=== PATIENT | male | born 2000 | race African-American/Black ===

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

== ENCOUNTER 2020-01-11 16:20 | Emergency (ER) | payer MEDICAID ==
--- NOTE | 2020-01-11 17:21 | EDM.PDOC ---
ED HPI GENERAL MEDICAL PROBLEM - General Chief Complaint: Laceration Stated Complaint: L EYE/HEAD INJURY Time Seen by Provider: 01/11/20 16:54 Source of Information: Reports: Patient, RN Notes Reviewed History Limitations: Reports: No Limitations - History of Present Illness INITIAL COMMENTS - FREE TEXT/NARRATIVE: Patient is a 19-year-old male who presents to the ED for the evaluation of a eyebrow laceration. At about 4:15 PM, he was helping his mother unload her vehicle, when he ended up hitting his head/left eyebrow on the open delgado of her vehicle. He does have a 5 mm fine laceration into the lateral left eyebrow. He did have a loss of consciousness he did not black out. There is a small hematoma underneath the eyebrow otherwise he is having no blurred vision double vision, no major headache, no other facial pain. He denies any other sick-like symptoms. Treatments RETAIL GIFT CARD MERCHANDISING: Reports: Other (see below) Other Treatments RETAIL GIFT CARD MERCHANDISING: none - Related Data Allergies Allergy/AdvReac Type Severity Reaction Status Date / Time No Known Allergies Allergy Verified 08/18/19 23:43 Home Meds: Home Meds metFORMIN HCl [Metformin HCl] 500 mg PO BID #30 tablet 07/04/19 [Rx] Insulin Glarg,Human.Rec.Analog [Lantus] 60 unit SUBCUT BEDTIME #1 pen 07/14/19 [Rx] Insulin Lispro [HumaLOG] 20 unit SUBCUT TIDAC #1 vial 07/14/19 [Rx] Past Medical History Respiratory History: Reports: Asthma Musculoskeletal History: Reports: Fracture Psychiatric History: Reports: ADHD Endocrine/Metabolic History: Reports: Diabetes, Type II, Obesity/BMI 30+ Other Endocrine/Metabolic History: hx DKA Dermatologic History: Reports: Eczema - Past Surgical History HEENT Surgical History: Reports: Oral Surgery Musculoskeletal Surgical History: Reports: ORIF Social & Family History - Family History Family Medical History: Noncontributory - Caffeine Use Caffeine Use: Reports: Coffee, Energy Drinks, Soda, Tea - Living Situation & Occupation Living situation: Reports: Single, with Family Occupation: Unemployed ED ROS GENERAL - Review of Systems Review Of Systems: Comprehensive ROS is negative, except as noted in HPI. ED EXAM, SKIN/RASH Exam: See Below Exam Limited By: No Limitations General Appearance: Alert, WD/WN, No Apparent Distress Eye Exam: Bilateral Eye: EOMI, Normal Inspection, PERRL Head: Normocephalic Neck: Normal Inspection, Supple, Non-Tender, Full Range of Motion Respiratory/Chest: No Respiratory Distress, Lungs Clear, Normal Breath Sounds, No Accessory Muscle Use, Chest Non-Tender Cardiovascular: Normal Peripheral Pulses, Regular Rate, Rhythm, No Murmur Extremities: Normal Inspection, Normal Capillary Refill Neurological: Alert, Oriented, Normal Cognition, No Motor/Sensory Deficits Psychiatric: Normal Affect, Normal Mood Skin: Warm, Dry, Normal Color, No Rash, Wound/Incision (5mm linear laceration to left lateral eyebrow) ED SKIN PROCEDURES - Laceration/Wound Repair Left Upper Lateral Face Appearance: Superficial, Linear, Clean Distal NVT: Neuro & Vascular Intact, No Tendon Injury Skin Prep: Chlorhexidine (Hibiciens), Saline Exploration/Debridement/Repair: Wound Explored, In a Bloodless Field, Explored to Base, No Foreign Material Found Closed with: Dermabond Lac/Wound length In cm: 0.5 Sterile Dressing Applied: Nurse Tetanus Status Addressed: Yes Complications: No Course - Vital Signs Last Recorded V/S: Last Vital Signs Temp 97.3 F 01/11/20 16:56 Pulse 88 01/11/20 16:56 Resp 20 01/11/20 16:56 BP 132/92 H 01/11/20 16:56 Pulse Ox 97 01/11/20 16:56 Departure - Departure Time of Disposition: 17:19 Disposition: Home, Self-Care 01 Condition: Good Clinical Impression: Eyebrow laceration Qualifiers: Encounter type: initial encounter Laterality: left Qualified Code(s): S01.112A - Laceration without foreign body of left eyelid and periocular area, initial encounter - Discharge Information *PRESCRIPTION DRUG MONITORING PROGRAM REVIEWED*: No *COPY OF PRESCRIPTION DRUG MONITORING REPORT IN PATIENT SHANTI: No Instructions: Facial Laceration, [id number] Referrals: PCP,None [Primary Care Provider] - Additional Instructions: You were evaluated in the ER today for your left eyebrow laceration. This was treated with Dermabond, a medical grade skin adhesive. This should heal well. The Dermabond itself will wear off within the next few days. Please watch out for signs of infection like redness, swelling, drainage at the site of injury. Please watch out for any worrisome symptoms, headache this not relieved by Tylenol ibuprofen alone, increased nausea/vomiting, blurred vision/double vis ion. You may take 500 mg Tylenol or 600 mg ibuprofen every 6 hours as needed for further pain relief. You may also ice the area to help relieve some of the swelling. Do not be surprised if you do not get a little bit of a black eye from the injury. Please return to the ER at any time if symptoms change or worsen. Sepsis Event Note (ED) - Evaluation Sepsis Screening Result: No Definite Risk - Focused Exam Vital Signs: Vital Signs Temp Pulse Resp BP Pulse Ox 01/11/20 16:56 97.3 F 88 20 132/92 H 97
== END 2020-01-11 17:55 | disposition home or self-care (01) ==
LOC: JD.ED 16:20
DX: S01.112A Laceration without foreign body of left eyelid and periocular area, initial encounter (principal); J45.909 Unspecified asthma, uncomplicated; E11.9 Type 2 diabetes mellitus without complications; E66.9 Obesity, unspecified; Z68.35 Body mass index [BMI] 35.0-35.9, adult; Z79.4 Long term (current) use of insulin; W22.8XXA Striking against or struck by other objects, initial encounter
CPT/HCPCS: 12011; 99282; 99282-25

== ENCOUNTER 2020-03-06 12:39 | Inpatient (IN) | payer MEDICAID ==
[2020-03-06] MEDS ORDERED: Insulin Regular, Human 100 Units/ML 3 ML Vial IV ONE (13:24)
[2020-03-06] MEDS ORDERED: Metoclopramide 10 MG/2 ML SDV IVPUSH ONE (13:29)
[2020-03-06] MEDS ORDERED: HYDROmorphone 1 MG/ML Syringe IVPUSH ONE (13:29)
--- NOTE | 2020-03-06 13:30 | EDM.PDOC ---
ED HPI GENERAL MEDICAL PROBLEM - General Chief Complaint: Diabetic Complaint Stated Complaint: POSS COVID Time Seen by Provider: 03/06/20 13:15 Source of Information: Reports: Patient History Limitations: Reports: No Limitations - History of Present Illness INITIAL COMMENTS - FREE TEXT/NARRATIVE: 20-year-old male presents to the ED feeling weak nauseated with upper abdominal pain and knows that his blood sugar was greater than 400. Patient was diagnosed with diabetes at age 14 and is still on Metformin 1 g twice daily. He reports he has been off insulin for about a month as he became homeless and could not afford insulin. He states he became ill the last 3 to 4 days with cough weakness headache. He still is able to eat although it is difficult to keep anything down. He denies any diarrhea. Blood sugar in the ED was greater than 400. He smells strongly of ketones. He denies being on any other medications. Onset: Gradual, Other (Been off insulin he states for the last month and is a known insulin dependent diabetic for 6 years) Onset Date: 02/04/20 Duration: Week(s):, Getting Worse Location: Reports: Abdomen (Normalized weakness upper abdominal pain with nausea no vomiting), Generalized Quality: Reports: Ache (Deep aching pain upper abdomen) Severity: Moderate Improves with: Reports: None Worsens with: Reports: Eating Context: Reports: Other (Insulin-dependent diabetic type I since age 14 reports not using any insulin for the last month.). Denies: Activity, Exercise, Lifting, Sick Contact, Trauma Associated Symptoms: Reports: Cough, cough w sputum, Headaches, Loss of Appetite (Sputum), Malaise, Nausea/Vomiting, Weakness. Denies: Confusion, Chest Pain, Diaphoresis, Fever/Chills, Rash, Seizure (Nausea without vomiting), Shortness of Breath, Syncope Treatments IMPLEMENTATION TECHNICIAN: Reports: Other (see below) (None.) Generalized Pain Score (Numeric/FACES): 3 - Related Data Allergies Allergy/AdvReac Type Severity Reaction Status Date / Time No Known Allergies Allergy Verified 03/06/20 12:54 Home Meds: Home Meds metFORMIN HCl [Metformin HCl] 500 mg PO BID #30 tablet 07/04/19 [Rx] Insulin Glarg,Human.Rec.Analog [Lantus] 60 unit SUBCUT BEDTIME #1 pen 07/14/19 [Rx] Insulin Lispro [HumaLOG] 20 unit SUBCUT TIDAC #1 vial 07/14/19 [Rx] Past Medical History Respiratory History: Reports: Asthma Musculoskeletal History: Reports: Fracture Psychiatric History: Reports: ADHD Endocrine/Metabolic History: Reports: Diabetes, Type I (Diagnosed with type 1 diabetes at age 14. Previous history of DKA), Obesity/BMI 30+ Other Endocrine/Metabolic History: hx DKA Dermatologic History: Reports: Eczema - Past Surgical History HEENT Surgical History: Reports: Oral Surgery Respiratory Surgical History: Reports: None Endocrine Surgical History: Reports: None Musculoskeletal Surgical History: Reports: ORIF Other Musculoskeletal Surgeries/Procedures:: right elbow Social & Family History - Family History Family Medical History: No Pertinent Family History - Tobacco Use Tobacco Use Status *Q: Never Tobacco User Second Hand Smoke Exposure: No - Caffeine Use Caffeine Use: Reports: Coffee, Energy Drinks, Soda - Recreational Drug Use Recreational Drug Use: No - Living Situation & Occupation Living situation: Reports: Single, with Family Occupation: Unemployed ED ROS GENERAL - Review of Systems Review Of Systems: See Below Constitutional: Reports: Malaise, Weakness, Fatigue, Decreased Appetite, Weight Loss. Denies: Fever, Chills HEENT: Reports: Other ([place] blurred vision. Does not wear glasses or contact lenses.) Respiratory: Reports: Cough, Sputum (White sputum.). Denies: Wheezing, Pleuritic Chest Pain Cardiovascular: Reports: Blood Pressure Problem. Denies: Chest Pain, Claudication, Dyspnea on Exertion, Edema, Lightheadedness, Orthopnea (Not for sure.) Endocrine: Reports: Fatigue GI/Abdominal: Reports: Abdominal Pain, Decreased Appetite, Nausea. Denies: Constipation (Upper abdominal pain along the costal margin bilaterally and epigastrium through to his mid back), Diarrhea, Hematemesis, Hematochezia, Melena, Stool Incontinence, Vomiting : Reports: Frequency, Other Musculoskeletal: Reports: No Symptoms Skin: Reports: Dryness Neurological: Reports: Dizziness, Headache, Weakness. Denies: Confusion, Numbness, Paresthesia, Pre-Existing Deficit, Seizure, Syncope, Tingling, Tremors, Trouble Speaking Psychiatric: Reports: No Symptoms Hematologic/Lymphatic: Reports: No Symptoms Immunologic: Reports: No Symptoms ED EXAM GENERAL NO PERIP PULSE - Physical Exam Exam: See Below Exam Limited By: No Limitations General Appearance: Alert, WD/WN, Mild Distress, Other (Patient smells strongly of ketones. Temperature is 36.3 heart rate 126 at the bedside respiratory is 24 with O2 sats of 95% room air BP 149/98.) Eye Exam: Bilateral Eye: Normal Inspection, PERRL (No blepharal pallor or scleral icterus identified) Ears: Normal TMs Throat/Mouth: Other (Tongue is moderately dry and coated.) Head: Atraumatic, Normocephalic Neck: Normal Inspection, Supple, Non-Tender, Full Range of Motion. No: Lymphadenopathy (L), Lymphadenopathy (R) Respiratory/Chest: Lungs Clear, Normal Breath Sounds, Respiratory Distress (Tachypnea at the bedside.). No: Crackles, Rales, Rhonchi, Wheezing Cardiovascular: Normal Peripheral Pulses, No Edema, No Gallop, No Murmur, No Rub, Tachycardia GI/Abdominal: Soft (Sounds are present but are infrequent in all 4 quadrants.), No Organomegaly, No Mass, Pelvis Stable, Tender, Abnormal Bowel Sounds. No: Guarding, Rigid, Rebound, Hepatomegaly, Splenomegaly (Tenderness in the epigastrium.) Back Exam: Normal Inspection, Full Range of Motion. No: CVA Tenderness (L), CVA Tenderness (R) Extremities: Normal Inspection, Normal Range of Motion, Non-Tender, No Pedal Edema Neurological: Alert, Oriented, CN II-XII Intact, Normal Cognition Psychiatric: Normal Affect, Normal Mood Skin Exam: Warm, Dry, Intact, Normal Color, No Rash #1 Interpretation EKG Date: 03/06/20 Time: 14:21 Rhythm: Other Rate (Beats/Min): 106 [place]: Normal P-Wave: Present QRS: Other (RSR prime wave V1 consider normal variant. Initial poor R wave progression.) ST-T: Other (Diffuse ST segment depression and T wave inversion from V3 to V6 also appreciated in leads II, III and aVF consider anterior inferior wall ischemia. Nonspecific T wave flattening in leads I and aVL) QT: Prolonged EKG Interpretation Comments: Abnormal ECG Course - Vital Signs Last Recorded V/S: Last Vital Signs Temp 36.3 C 03/06/20 12:52 Pulse 126 H 03/06/20 12:52 Resp 20 03/06/20 12:52 BP 149/98 H 03/06/20 12:52 Pulse Ox 95 03/06/20 12:52 - Orders/Labs/Meds Orders: Active Orders 24 hr Category Date Time Status Patient Status [ADT] Routine ADT 03/06/20 17:55 Active Accu Check [Blood Glucose Check, Bedside] [] Q1H Care 03/06/20 18:07 Active EKG Documentation Completion [RC] STAT Care 03/06/20 13:19 Active Flutter Valve Therapy [RT Chest Physiotherapy] [RC] Care 03/06/20 18:03 Active ASDIRECTED Height and Weight [RC] UPON Care 03/06/20 17:55 Active Incentive Spirometry [RT Incentive Spirometry] [RC] Care 03/06/20 18:03 Active Q2HWA Intake and Output [] QSHIFT Care 03/06/20 17:56 Active Oxygen Therapy [RC] PRN Care 03/06/20 17:55 Active RT Aerosol Therapy [] ASDIRECTED Care 03/06/20 17:57 Active Up ad Brittney [RC] ASDIRECTED Care 03/06/20 17:55 Active VTE/DVT Education [RC] PER UNIT ROUTINE Care 03/06/20 17:55 Active Vital Signs [RC] Q4H Care 03/06/20 17:55 Active Consult to Diabetic Nurse Specialist [CONS] Routine Cons 03/06/20 17:55 Active Consult to Etiologist [CONS] Routine Cons 03/06/20 17:55 Active Respiratory Care Assess and Treatment [CONS] Routine Cons 03/06/20 17:55 Active Nothing per Oral Now Diet [DIET] Diet 03/06/20 Dinner Active Chest 1V Frontal [CR] AM Exams 03/07/20 05:11 Ordered BASIC METABOLIC PANEL,BMP [CHEM] Q4H Lab 03/06/20 21:55 Ordered BASIC METABOLIC PANEL,BMP [CHEM] Q4H Lab 03/07/20 01:55 Ordered BASIC METABOLIC PANEL,BMP [CHEM] Q4H Lab 03/07/20 05:55 Ordered BASIC METABOLIC PANEL,BMP [CHEM] Q4H Lab 03/07/20 09:55 Ordered BASIC METABOLIC PANEL,BMP [CHEM] Q4H Lab 03/07/20 13:55 Ordered BASIC METABOLIC PANEL,BMP [CHEM] Q4H Lab 03/07/20 17:55 Ordered BASIC METABOLIC PANEL,BMP [CHEM] Q4H Lab 03/07/20 21:55 Ordered BASIC METABOLIC PANEL,BMP [CHEM] Q4H Lab 03/08/20 01:55 Ordered C-REACTIVE PROTEIN [CHEM] AM Lab 03/07/20 05:11 Ordered C-REACTIVE PROTEIN [CHEM] AM Lab 03/08/20 05:11 Ordered C-REACTIVE PROTEIN [CHEM] AM Lab 03/09/20 05:11 Ordered CULTURE BLOOD [BC] Stat Lab 03/06/20 13:45 Received CULTURE BLOOD [BC] Stat Lab 03/06/20 13:50 Received CULTURE SPUTUM + SMEAR [RM] Stat Lab 03/06/20 17:55 Ordered MAGNESIUM [CHEM] AM Lab 03/07/20 05:11 Ordered MAGNESIUM [CHEM] AM Lab 03/08/20 05:11 Ordered MAGNESIUM [CHEM] AM Lab 03/09/20 05:11 Ordered MAGNESIUM [CHEM] AM Lab 03/10/20 05:11 Ordered MAGNESIUM [CHEM] AM Lab 03/11/20 05:11 Ordered MAGNESIUM [CHEM] AM Lab 03/12/20 05:11 Ordered MAGNESIUM [CHEM] AM Lab 03/13/20 05:11 Ordered PHOSPHORUS [CHEM] AM Lab 03/07/20 05:11 Ordered PHOSPHORUS [CHEM] AM Lab 03/08/20 05:11 Ordered PHOSPHORUS [CHEM] AM Lab 03/09/20 05:11 Ordered PHOSPHORUS [CHEM] AM Lab 03/10/20 05:11 Ordered PHOSPHORUS [CHEM] AM Lab 03/11/20 05:11 Ordered PHOSPHORUS [CHEM] AM Lab 03/12/20 05:11 Ordered PHOSPHORUS [CHEM] AM Lab 03/13/20 05:11 Ordered Acetaminophen/HYDROcodone [[place] 325-5 MG] Med 03/06/20 17:55 Active 1 tab PO Q4H PRN Albuterol/Ipratropium [DuoNeb 3.0-0.5 MG/3 ML] Med 03/06/20 17:55 Active 3 ml NEB Q4H PRN Azithromycin [Zithromax] 500 mg Med 03/06/20 19:00 Active Sodium Chloride 0.9% [Normal Saline (AdvBag)] 250 ml IV Q24H Dextromethorphan/guaiFENesin [Robitussin DM] Med 03/06/20 18:03 Active 10 ml PO Q4H PRN HYDROmorphone [Dilaudid] Med 03/06/20 17:55 Active 0.5 mg IVPUSH Q2H PRN Heparin Sodium Med 03/06/20 18:00 Active 5,000 units SUBCUT Q8H Insulin Glarg,Human.Rec.Analog [LantUS] Med 03/07/20 18:02 Pending 25 unit SUBCUT DAILY ONE Insulin Regular, Human [HumuLIN R] 100 unit Med 03/06/20 18:15 Active Sodium Chloride 0.9% [Normal Saline] 99 ml IV TITRATE Lactated Ringers [Ringers, Lactated] 1,000 ml Med 03/06/20 13:30 Active IV ASDIRECTED Lactated Ringers [Ringers, Lactated] 1,000 ml Med 03/06/20 15:15 Active IV ASDIRECTED Ondansetron [Zofran] Med 03/06/20 17:55 Active 4 mg IV Q6H PRN Potassium Chloride [KCl 10 MEQ in Water 100 ML] 10 meq Med 03/06/20 19:00 Active Premix Bag 1 bag IV Q1H Promethazine [Phenergan] 6.25 mg Med 03/06/20 17:55 Active Sodium Chloride 0.9% [Normal Saline] 50 ml IV Q6H cefTRIAXone [Rocephin] 1 gm Med 03/06/20 18:30 Active Sodium Chloride 0.9% [Normal Saline] 100 ml IV Q24H dexAMETHasone Med 03/07/20 09:00 Active 6 mg PO DAILY Blood Culture x2 Reflex Set [OM.PC] Stat Oth 03/06/20 13:20 Ordered Blood Culture x2 Reflex Set [OM.PC] Stat Oth 03/06/20 13:22 Ordered Resuscitation Status Routine Resus Stat 03/06/20 17:55 Ordered Medication Orders Hydrocodone Bitart/Acetaminophen ([place] 325-5 Mg) 1 tab PO Q4H PRN PRN Reason: Pain (moderate 4-6) Albuterol/Ipratropium (Duoneb 3.0-0.5 Mg/3 Ml) 3 ml NEB Q4H PRN PRN Reason: Shortness Of Breath/wheezing Dexamethasone (Dexamethasone) 6 mg PO DAILY [facility] Guaifenesin/Phenylephrine HCl (Robitussin Dm) 10 ml PO Q4H PRN PRN Reason: Cough Heparin Sodium (Porcine) (Heparin Sodium) 5,000 units SUBCUT Q8H [facility] Last Admin: 03/06/20 18:15 Dose: 5,000 units Documented by: ION Hydromorphone HCl (Dilaudid) 0.5 mg IVPUSH Q2H PRN PRN Reason: Pain (severe 7-10) Lactated Ringer's (Ringers, Lactated) 1,000 mls @ 999 mls/hr IV ASDIRECTED [facility] Last Admin: 03/06/20 15:48 Dose: 999 mls/hr Documented by: Infusion: 03/06/20 14:56 Dose: 999 mls/hr Documented by: Admin: 03/06/20 13:55 Dose: 999 mls/hr Documented by: ION Lactated Ringer's (Ringers, Lactated) 1,000 mls @ 999 mls/hr IV ASDIRECTED [facility] Last Admin: 03/06/20 16:57 Dose: 999 mls/hr Documented by: ION Potassium Chloride 10 meq/ (Premix) 100 mls @ 100 mls/hr IV Q1H [facility]IGUEL ANGEL Stop: 03/06/20 21:59 Promethazine HCl 6.25 mg/ (Sodium Chloride) 50.25 mls @ 100 mls/hr IV Q6H PRN PRN Reason: Nausea/Vomiting Insulin Human Regular 100 unit (/ Sodium Chloride) 100 mls @ 707.604 mls/hr IV TITRATE [facility]; Protocol Ceftriaxone Sodium 1 gm/ (Sodium Chloride) 100 mls @ 200 mls/hr IV Q24H [facility] Stop: 03/11/20 18:31 Azithromycin 500 mg/ Sodium (Chloride) 250 mls @ 250 mls/hr IV Q24H [facility] Insulin Glargine (Lantus) 25 unit SUBCUT DAILY ONE Stop: 03/07/20 18:03 Ondansetron HCl (Zofran) 4 mg IV Q6H PRN PRN Reason: Nausea/Vomiting Labs: Laboratory Tests 03/06/20 03/06/20 03/06/20 Range/Units 13:20 13:20 13:28 WBC (4.23-9.07) K/mm3 RBC (4.63-6.08) M/mm3 Hgb (13.7-17.5) gm/dl Hct (40.1-51.0) % MCV (79.0-92.2) fl MCH (25.7-32.2) pg MCHC (32.2-35.5) g/dl RDW Std Deviation (35.1-43.9) fL Plt Count (163-337) K/mm3 MPV (9.4-12.3) fl Neut % (Auto) (34.0-67.9) % Lymph % (Auto) (21.8-53.1) % [place] % (Auto) (5.3-12.2) % Eos % (Auto) (0.8-7.0) Baso % (Auto) (0.1-1.2) % Neut # (Auto) (1.78-5.38) K/mm3 Lymph # (Auto) (1.32-3.57) K/mm3 [place] # (Auto) (0.30-0.82) K/mm3 Eos # (Auto) (0.04-0.54) K/mm3 Baso # (Auto) (0.01-0.08) K/mm3 Manual Slide Review PT (9.7-12.0) SECONDS INR APTT (21.7-31.4) SECONDS Puncture Site ABG pH (7.35-7.45) ABG pCO2 (35.0-45.0) mmHg ABG pO2 (80.0-100.0) mmHg ABG HCO3 (22.0-26.0) meq/L ABG O2 Saturation (96.0-97.0) % ABG Base Excess (-2-2.0) Brandon Test A-a Gradient mmHg O2 Delivery Device Oxygen Flow Rate FiO2 (21.00-100.00) % Sodium 132 L (136-145) mEq/L Potassium 3.3 L (3.5-5.1) mEq/L Chloride 94 L (98-107) mEq/L Carbon Dioxide 9 L D (21-32) mEq/L Anion Gap 32.3 H (5-15) BUN 8 (7-18) mg/dL Creatinine 1.6 H (0.7-1.3) mg/dL Est Cr Clr Drug Dosing 92.81 mL/min Estimated GFR (MDRD) > 60 (>60) mL/min BUN/Creatinine Ratio 5.0 L (14-18) Glucose 526 H* (74-106) mg/dL POC Glucose (70-105) mg/dL Hemoglobin A1c 11.40 H (4.50-6.20) % Serum Osmolality (280-300) mosm/kg Calcium 9.6 (8.5-10.1) mg/dL Phosphorus (2.6-4.7) mg/dL Magnesium (1.8-2.4) mg/dl Iron (65-175) ug/dL TIBC (100-400) ug/dL % Saturation (20-55) % Transferrin (202-364) mg/dL Ferritin (26-388) ng/ml Total Bilirubin 0.6 (0.2-1.0) mg/dL AST 35 (15-37) U/L ALT 50 (16-63) U/L Alkaline Phosphatase 102 (46-116) U/L Lactate Dehydrogenase (85-227) U/L Troponin I < 0.017 (0.00-0.056) ng/mL C-Reactive Protein (<1.0) mg/dL NT-Pro-B Natriuret Pep (0-125) pg/mL Total Protein 8.8 H (6.4-8.2) g/dl Albumin 3.1 L (3.4-5.0) g/dl Globulin 5.7 gm/dL Albumin/Globulin Ratio 0.5 L (1-2) Lipase 50 L (73-393) U/L Urine Opiates Screen (YRLQAW=667) Ur Buprenorphine Scrn (CUTOFF=10) Ur Oxycodone Screen (GGY3BV=935) Urine Methadone Screen (TAQ6WS=367) Ur Propoxyphene Screen (WYJUQX=848) Ur Barbiturates Screen (VMZAQW=457) Ur Tricyclics Screen (QJLWHN=916) Ur Phencyclidine Scrn (CUTOFF=25) Ur Amphetamine Screen (BKKZTT=603) U Methamphetamines Scrn (EUUOPP=805) U Benzodiazepines Scrn (NXQMSD=963) U Cocaine Metab Screen (YAAVWQ=603) U Marijuana (THC) Screen (CUTOFF=50) Ethyl Alcohol 0.00 (0.00) gm% Ketones (0.0-0.3) mM SARS-CoV-2 RNA (KATARINA) (NEGATIVE) 03/06/20 03/06/20 03/06/20 Range/Units 13:28 13:28 13:28 WBC 9.89 H (4.23-9.07) K/mm3 RBC 5.86 (4.63-6.08) M/mm3 Hgb 15.2 (13.7-17.5) gm/dl Hct 46.1 (40.1-51.0) % MCV 78.7 L (79.0-92.2) fl MCH 25.9 (25.7-32.2) pg MCHC 33.0 (32.2-35.5) g/dl RDW Std Deviation 40.6 (35.1-43.9) fL Plt Count 263 (163-337) K/mm3 MPV 11.5 (9.4-12.3) fl Neut % (Auto) 78.7 H (34.0-67.9) % Lymph % (Auto) 12.2 L (21.8-53.1) % [place] % (Auto) 8.7 (5.3-12.2) % Eos % (Auto) 0 L (0.8-7.0) Baso % (Auto) 0.2 (0.1-1.2) % Neut # (Auto) 7.78 H (1.78-5.38) K/mm3 Lymph # (Auto) 1.21 L (1.32-3.57) K/mm3 [place] # (Auto) 0.86 H (0.30-0.82) K/mm3 Eos # (Auto) 0.00 L (0.04-0.54) K/mm3 Baso # (Auto) 0.02 (0.01-0.08) K/mm3 Manual Slide Review Normal smear PT 11.4 (9.7-12.0) SECONDS INR 1.07 APTT 30.0 (21.7-31.4) SECONDS Puncture Site ABG pH (7.35-7.45) ABG pCO2 (35.0-45.0) mmHg ABG pO2 (80.0-100.0) mmHg ABG HCO3 (22.0-26.0) meq/L ABG O2 Saturation (96.0-97.0) % ABG Base Excess (-2-2.0) Brandon Test A-a Gradient mmHg O2 Delivery Device Oxygen Flow Rate FiO2 (21.00-100.00) % Sodium (136-145) mEq/L Potassium (3.5-5.1) mEq/L Chloride (98-107) mEq/L Carbon Dioxide (21-32) mEq/L Anion Gap (5-15) BUN (7-18) mg/dL Creatinine (0.7-1.3) mg/dL Est Cr Clr Drug Dosing mL/min Estimated GFR (MDRD) (>60) mL/min BUN/Creatinine Ratio (14-18) Glucose (74-106) mg/dL POC Glucose (70-105) mg/dL Hemoglobin A1c (4.50-6.20) % Serum Osmolality (280-300) mosm/kg Calcium (8.5-10.1) mg/dL Phosphorus (2.6-4.7) mg/dL Magnesium (1.8-2.4) mg/dl Iron (65-175) ug/dL TIBC (100-400) ug/dL % Saturation (20-55) % Transferrin (202-364) mg/dL Ferritin (26-388) ng/ml Total Bilirubin (0.2-1.0) mg/dL AST (15-37) U/L ALT (16-63) U/L Alkaline Phosphatase (46-116) U/L Lactate Dehydrogenase (85-227) U/L Troponin I (0.00-0.056) ng/mL C-Reactive Protein (<1.0) mg/dL NT-Pro-B Natriuret Pep (0-125) pg/mL Total Protein (6.4-8.2) g/dl Albumin (3.4-5.0) g/dl Globulin gm/dL Albumin/Globulin Ratio (1-2) Lipase (73-393) U/L Urine Opiates Screen (WHMTUZ=346) Ur Buprenorphine Scrn (CUTOFF=10) Ur Oxycodone Screen (HGC5IX=084) Urine Methadone Screen (MNH8RB=019) Ur Propoxyphene Screen (TUEVJB=379) Ur Barbiturates Screen (RGQOAV=875) Ur Tricyclics Screen (AXZCBQ=992) Ur Phencyclidine Scrn (CUTOFF=25) Ur Amphetamine Screen (RUPTOT=535) U Methamphetamines Scrn (QOVWIB=210) U Benzodiazepines Scrn (XUQZLL=851) U Cocaine Metab Screen (VBHGCA=944) U Marijuana (THC) Screen (CUTOFF=50) Ethyl Alcohol (0.00) gm% Ketones 8.93 (0.0-0.3) mM SARS-CoV-2 RNA (KATARINA) (NEGATIVE) 03/06/20 03/06/20 03/06/20 Range/Units 13:28 13:28 13:28 WBC (4.23-9.07) K/mm3 RBC (4.63-6.08) M/mm3 Hgb (13.7-17.5) gm/dl Hct (40.1-51.0) % MCV (79.0-92.2) fl MCH (25.7-32.2) pg MCHC (32.2-35.5) g/dl RDW Std Deviation (35.1-43.9) fL Plt Count (163-337) K/mm3 MPV (9.4-12.3) fl Neut % (Auto) (34.0-67.9) % Lymph % (Auto) (21.8-53.1) % [place] % (Auto) (5.3-12.2) % Eos % (Auto) (0.8-7.0) Baso % (Auto) (0.1-1.2) % Neut # (Auto) (1.78-5.38) K/mm3 Lymph # (Auto) (1.32-3.57) K/mm3 [place] # (Auto) (0.30-0.82) K/mm3 Eos # (Auto) (0.04-0.54) K/mm3 Baso # (Auto) (0.01-0.08) K/mm3 Manual Slide Review PT (9.7-12.0) SECONDS INR APTT (21.7-31.4) SECONDS Puncture Site ABG pH (7.35-7.45) ABG pCO2 (35.0-45.0) mmHg ABG pO2 (80.0-100.0) mmHg ABG HCO3 (22.0-26.0) meq/L ABG O2 Saturation (96.0-97.0) % ABG Base Excess (-2-2.0) Brandon Test A-a Gradient mmHg O2 Delivery Device Oxygen Flow Rate FiO2 (21.00-100.00) % Sodium (136-145) mEq/L Potassium (3.5-5.1) mEq/L Chloride (98-107) mEq/L Carbon Dioxide (21-32) mEq/L Anion Gap (5-15) BUN (7-18) mg/dL Creatinine (0.7-1.3) mg/dL Est Cr Clr Drug Dosing mL/min Estimated GFR (MDRD) (>60) mL/min BUN/Creatinine Ratio (14-18) Glucose (74-106) mg/dL POC Glucose (70-105) mg/dL Hemoglobin A1c (4.50-6.20) % Serum Osmolality 331 H (280-300) mosm/kg Calcium (8.5-10.1) mg/dL Phosphorus 3.4 (2.6-4.7) mg/dL Magnesium 1.9 (1.8-2.4) mg/dl Iron 27 L (65-175) ug/dL TIBC 310 (100-400) ug/dL % Saturation 9 L (20-55) % Transferrin 248 (202-364) mg/dL Ferritin (26-388) ng/ml Total Bilirubin (0.2-1.0) mg/dL AST (15-37) U/L ALT (16-63) U/L Alkaline Phosphatase (46-116) U/L Lactate Dehydrogenase (85-227) U/L Troponin I (0.00-0.056) ng/mL C-Reactive Protein 32.4 H* (<1.0) mg/dL NT-Pro-B Natriuret Pep 23 (0-125) pg/mL Total Protein (6.4-8.2) g/dl Albumin (3.4-5.0) g/dl Globulin gm/dL Albumin/Globulin Ratio (1-2) Lipase (73-393) U/L Urine Opiates Screen (DZFGMK=822) Ur Buprenorphine Scrn (CUTOFF=10) Ur Oxycodone Screen (MCK0YW=140) Urine Methadone Screen (HNF7VA=199) Ur Propoxyphene Screen (JYAALT=314) Ur Barbiturates Screen (SYCORE=484) Ur Tricyclics Screen (IREUQF=902) Ur Phencyclidine Scrn (CUTOFF=25) Ur Amphetamine Screen (IIFUXV=624) U Methamphetamines Scrn (HWDVVB=394) U Benzodiazepines Scrn (ZZIKAW=559) U Cocaine Metab Screen (FGUFFI=985) U Marijuana (THC) Screen (CUTOFF=50) Ethyl Alcohol (0.00) gm% Ketones (0.0-0.3) mM SARS-CoV-2 RNA (KATARINA) (NEGATIVE) 03/06/20 03/06/20 03/06/20 Range/Units 14:13 14:35 14:38 WBC (4.23-9.07) K/mm3 RBC (4.63-6.08) M/mm3 Hgb (13.7-17.5) gm/dl Hct (40.1-51.0) % MCV (79.0-92.2) fl MCH (25.7-32.2) pg MCHC (32.2-35.5) g/dl RDW Std Deviation (35.1-43.9) fL Plt Count (163-337) K/mm3 MPV (9.4-12.3) fl Neut % (Auto) (34.0-67.9) % Lymph % (Auto) (21.8-53.1) % [place] % (Auto) (5.3-12.2) % Eos % (Auto) (0.8-7.0) Baso % (Auto) (0.1-1.2) % Neut # (Auto) (1.78-5.38) K/mm3 Lymph # (Auto) (1.32-3.57) K/mm3 [place] # (Auto) (0.30-0.82) K/mm3 Eos # (Auto) (0.04-0.54) K/mm3 Baso # (Auto) (0.01-0.08) K/mm3 Manual Slide Review PT (9.7-12.0) SECONDS INR APTT (21.7-31.4) SECONDS Puncture Site Rt radial ABG pH 7.20 L (7.35-7.45) ABG pCO2 19.4 L* (35.0-45.0) mmHg ABG pO2 91.0 (80.0-100.0) mmHg ABG HCO3 7.3 L (22.0-26.0) meq/L ABG O2 Saturation 95.5 L (96.0-97.0) % ABG Base Excess -19.5 L (-2-2.0) Brandon Test Positive A-a Gradient 35 mmHg O2 Delivery Device Room air Oxygen Flow Rate 0.0 FiO2 21.00 (21.00-100.00) % Sodium (136-145) mEq/L Potassium (3.5-5.1) mEq/L Chloride (98-107) mEq/L Carbon Dioxide (21-32) mEq/L Anion Gap (5-15) BUN (7-18) mg/dL Creatinine (0.7-1.3) mg/dL Est Cr Clr Drug Dosing mL/min Estimated GFR (MDRD) (>60) mL/min BUN/Creatinine Ratio (14-18) Glucose 466 H (74-106) mg/dL POC Glucose (70-105) mg/dL Hemoglobin A1c (4.50-6.20) % Serum Osmolality (280-300) mosm/kg Calcium (8.5-10.1) mg/dL Phosphorus (2.6-4.7) mg/dL Magnesium (1.8-2.4) mg/dl Iron (65-175) ug/dL TIBC (100-400) ug/dL % Saturation (20-55) % Transferrin (202-364) mg/dL Ferritin (26-388) ng/ml Total Bilirubin (0.2-1.0) mg/dL AST (15-37) U/L ALT (16-63) U/L Alkaline Phosphatase (46-116) U/L Lactate Dehydrogenase (85-227) U/L Troponin I (0.00-0.056) ng/mL C-Reactive Protein (<1.0) mg/dL NT-Pro-B Natriuret Pep (0-125) pg/mL Total Protein (6.4-8.2) g/dl Albumin (3.4-5.0) g/dl Globulin gm/dL Albumin/Globulin Ratio (1-2) Lipase (73-393) U/L Urine Opiates Screen (NQMJHQ=367) Ur Buprenorphine Scrn (CUTOFF=10) Ur Oxycodone Screen (VBO0IE=898) Urine Methadone Screen (UYW0FL=205) Ur Propoxyphene Screen (OFDQDE=136) Ur Barbiturates Screen (SQHNRD=150) Ur Tricyclics Screen (YWUERR=584) Ur Phencyclidine Scrn (CUTOFF=25) Ur Amphetamine Screen (ENVPBV=704) U Methamphetamines Scrn (WBFWXU=033) U Benzodiazepines Scrn (AEFTPE=698) U Cocaine Metab Screen (AUTOVM=917) U Marijuana (THC) Screen (CUTOFF=50) Ethyl Alcohol (0.00) gm% Ketones (0.0-0.3) mM SARS-CoV-2 RNA (KATARINA) Positive H (NEGATIVE) 03/06/20 03/06/20 03/06/20 Range/Units 15:40 15:40 15:40 WBC (4.23-9.07) K/mm3 RBC (4.63-6.08) M/mm3 Hgb (13.7-17.5) gm/dl Hct (40.1-51.0) % MCV (79.0-92.2) fl MCH (25.7-32.2) pg MCHC (32.2-35.5) g/dl RDW Std Deviation (35.1-43.9) fL Plt Count (163-337) K/mm3 MPV (9.4-12.3) fl Neut % (Auto) (34.0-67.9) % Lymph % (Auto) (21.8-53.1) % Dade % (Auto) (5.3-12.2) % Eos % (Auto) (0.8-7.0) Baso % (Auto) (0.1-1.2) % Neut # (Auto) (1.78-5.38) K/mm3 Lymph # (Auto) (1.32-3.57) K/mm3 Dade # (Auto) (0.30-0.82) K/mm3 Eos # (Auto) (0.04-0.54) K/mm3 Baso # (Auto) (0.01-0.08) K/mm3 Manual Slide Review PT (9.7-12.0) SECONDS INR APTT (21.7-31.4) SECONDS Puncture Site ABG pH (7.35-7.45) ABG pCO2 (35.0-45.0) mmHg ABG pO2 (80.0-100.0) mmHg ABG HCO3 (22.0-26.0) meq/L ABG O2 Saturation (96.0-97.0) % ABG Base Excess (-2-2.0) Brandon Test A-a Gradient mmHg O2 Delivery Device Oxygen Flow Rate FiO2 (21.00-100.00) % Sodium (136-145) mEq/L Potassium (3.5-5.1) mEq/L Chloride (98-107) mEq/L Carbon Dioxide (21-32) mEq/L Anion Gap (5-15) BUN (7-18) mg/dL Creatinine (0.7-1.3) mg/dL Est Cr Clr Drug Dosing mL/min Estimated GFR (MDRD) (>60) mL/min BUN/Creatinine Ratio (14-18) Glucose 417 H (74-106) mg/dL POC Glucose (70-105) mg/dL Hemoglobin A1c (4.50-6.20) % Serum Osmolality (280-300) mosm/kg Calcium (8.5-10.1) mg/dL Phosphorus (2.6-4.7) mg/dL Magnesium (1.8-2.4) mg/dl Iron (65-175) ug/dL TIBC (100-400) ug/dL % Saturation (20-55) % Transferrin (202-364) mg/dL Ferritin 841 H (26-388) ng/ml Total Bilirubin (0.2-1.0) mg/dL AST (15-37) U/L ALT (16-63) U/L Alkaline Phosphatase (46-116) U/L Lactate Dehydrogenase 342 H (85-227) U/L Troponin I (0.00-0.056) ng/mL C-Reactive Protein (<1.0) mg/dL NT-Pro-B Natriuret Pep (0-125) pg/mL Total Protein (6.4-8.2) g/dl Albumin (3.4-5.0) g/dl Globulin gm/dL Albumin/Globulin Ratio (1-2) Lipase (73-393) U/L Urine Opiates Screen (RZXICR=283) Ur Buprenorphine Scrn (CUTOFF=10) Ur Oxycodone Screen (TTC5LT=144) Urine Methadone Screen (QLV4BV=375) Ur Propoxyphene Screen (KQMBYH=878) Ur Barbiturates Screen (QNVCFC=161) Ur Tricyclics Screen (OKPXLO=105) Ur Phencyclidine Scrn (CUTOFF=25) Ur Amphetamine Screen (OHZIDV=092) U Methamphetamines Scrn (JZSJFI=919) U Benzodiazepines Scrn (VWJIMB=512) U Cocaine Metab Screen (VNGGZJ=180) U Marijuana (THC) Screen (CUTOFF=50) Ethyl Alcohol (0.00) gm% Ketones (0.0-0.3) mM SARS-CoV-2 RNA (KATARINA) (NEGATIVE) 03/06/20 03/06/20 03/06/20 Range/Units 16:40 17:28 17:33 WBC (4.23-9.07) K/mm3 RBC (4.63-6.08) M/mm3 Hgb (13.7-17.5) gm/dl Hct (40.1-51.0) % MCV (79.0-92.2) fl MCH (25.7-32.2) pg MCHC (32.2-35.5) g/dl RDW Std Deviation (35.1-43.9) fL Plt Count (163-337) K/mm3 MPV (9.4-12.3) fl Neut % (Auto) (34.0-67.9) % Lymph % (Auto) (21.8-53.1) % Dade % (Auto) (5.3-12.2) % Eos % (Auto) (0.8-7.0) Baso % (Auto) (0.1-1.2) % Neut # (Auto) (1.78-5.38) K/mm3 Lymph # (Auto) (1.32-3.57) K/mm3 Dade # (Auto) (0.30-0.82) K/mm3 Eos # (Auto) (0.04-0.54) K/mm3 Baso # (Auto) (0.01-0.08) K/mm3 Manual Slide Review PT (9.7-12.0) SECONDS INR APTT (21.7-31.4) SECONDS Puncture Site ABG pH (7.35-7.45) ABG pCO2 (35.0-45.0) mmHg ABG pO2 (80.0-100.0) mmHg ABG HCO3 (22.0-26.0) meq/L ABG O2 Saturation (96.0-97.0) % ABG Base Excess (-2-2.0) Brandon Test A-a Gradient mmHg O2 Delivery Device Oxygen Flow Rate FiO2 (21.00-100.00) % Sodium (136-145) mEq/L Potassium (3.5-5.1) mEq/L Chloride (98-107) mEq/L Carbon Dioxide (21-32) mEq/L Anion Gap (5-15) BUN (7-18) mg/dL Creatinine (0.7-1.3) mg/dL Est Cr Clr Drug Dosing mL/min Estimated GFR (MDRD) (>60) mL/min BUN/Creatinine Ratio (14-18) Glucose 396 H (74-106) mg/dL POC Glucose 319 H (70-105) mg/dL Hemoglobin A1c (4.50-6.20) % Serum Osmolality (280-300) mosm/kg Calcium (8.5-10.1) mg/dL Phosphorus (2.6-4.7) mg/dL Magnesium (1.8-2.4) mg/dl Iron (65-175) ug/dL TIBC (100-400) ug/dL % Saturation (20-55) % Transferrin (202-364) mg/dL Ferritin (26-388) ng/ml Total Bilirubin (0.2-1.0) mg/dL AST (15-37) U/L ALT (16-63) U/L Alkaline Phosphatase (46-116) U/L Lactate Dehydrogenase (85-227) U/L Troponin I (0.00-0.056) ng/mL C-Reactive Protein (<1.0) mg/dL NT-Pro-B Natriuret Pep (0-125) pg/mL Total Protein (6.4-8.2) g/dl Albumin (3.4-5.0) g/dl Globulin gm/dL Albumin/Globulin Ratio (1-2) Lipase (73-393) U/L Urine Opiates Screen Negative (GBOYKJ=324) Ur Buprenorphine Scrn Negative (CUTOFF=10) Ur Oxycodone Screen Negative (UEZ6XH=530) Urine Methadone Screen Negative (GME3GT=962) Ur Propoxyphene Screen Negative (RTPKTC=655) Ur Barbiturates Screen Negative (IZUXDR=525) Ur Tricyclics Screen Negative (CRXNLJ=086) Ur Phencyclidine Scrn Negative (CUTOFF=25) Ur Amphetamine Screen Negative (ZENIGD=283) U Methamphetamines Scrn Negative (DJVICM=371) U Benzodiazepines Scrn Negative (GEEQWF=927) U Cocaine Metab Screen Negative (QATHDK=024) U Marijuana (THC) Screen Negative (CUTOFF=50) Ethyl Alcohol (0.00) gm% Ketones (0.0-0.3) mM SARS-CoV-2 RNA (KATARINA) (NEGATIVE) 11/20/20 11/20/20 Range/Units 17:40 18:28 WBC (4.23-9.07) K/mm3 RBC (4.63-6.08) M/mm3 Hgb (13.7-17.5) gm/dl Hct (40.1-51.0) % MCV (79.0-92.2) fl MCH (25.7-32.2) pg MCHC (32.2-35.5) g/dl RDW Std Deviation (35.1-43.9) fL Plt Count (163-337) K/mm3 MPV (9.4-12.3) fl Neut % (Auto) (34.0-67.9) % Lymph % (Auto) (21.8-53.1) % [place] % (Auto) (5.3-12.2) % Eos % (Auto) (0.8-7.0) Baso % (Auto) (0.1-1.2) % Neut # (Auto) (1.78-5.38) K/mm3 Lymph # (Auto) (1.32-3.57) K/mm3 [place] # (Auto) (0.30-0.82) K/mm3 Eos # (Auto) (0.04-0.54) K/mm3 Baso # (Auto) (0.01-0.08) K/mm3 Manual Slide Review PT (9.7-12.0) SECONDS INR APTT (21.7-31.4) SECONDS Puncture Site ABG pH (7.35-7.45) ABG pCO2 (35.0-45.0) mmHg ABG pO2 (80.0-100.0) mmHg ABG HCO3 (22.0-26.0) meq/L ABG O2 Saturation (96.0-97.0) % ABG Base Excess (-2-2.0) Brandon Test A-a Gradient mmHg O2 Delivery Device Oxygen Flow Rate FiO2 (21.00-100.00) % Sodium 135 L (136-145) mEq/L Potassium 3.5 (3.5-5.1) mEq/L Chloride 98 (98-107) mEq/L Carbon Dioxide 11 L (21-32) mEq/L Anion Gap 29.5 H (5-15) BUN 8 (7-18) mg/dL Creatinine 1.4 H (0.7-1.3) mg/dL Est Cr Clr Drug Dosing 106.07 mL/min Estimated GFR (MDRD) > 60 (>60) mL/min BUN/Creatinine Ratio 5.7 L (14-18) Glucose 387 H (74-106) mg/dL POC Glucose 339 H (70-105) mg/dL Hemoglobin A1c (4.50-6.20) % Serum Osmolality (280-300) mosm/kg Calcium 9.4 (8.5-10.1) mg/dL Phosphorus (2.6-4.7) mg/dL Magnesium (1.8-2.4) mg/dl Iron (65-175) ug/dL TIBC (100-400) ug/dL % Saturation (20-55) % Transferrin (202-364) mg/dL Ferritin (26-388) ng/ml Total Bilirubin (0.2-1.0) mg/dL AST (15-37) U/L ALT (16-63) U/L Alkaline Phosphatase (46-116) U/L Lactate Dehydrogenase (85-227) U/L Troponin I (0.00-0.056) ng/mL C-Reactive Protein (<1.0) mg/dL NT-Pro-B Natriuret Pep (0-125) pg/mL Total Protein (6.4-8.2) g/dl Albumin (3.4-5.0) g/dl Globulin gm/dL Albumin/Globulin Ratio (1-2) Lipase (73-393) U/L Urine Opiates Screen (XFRBLS=738) Ur Buprenorphine Scrn (CUTOFF=10) Ur Oxycodone Screen (UQX9IV=293) Urine Methadone Screen (PWY9KA=497) Ur Propoxyphene Screen (STFMHE=182) Ur Barbiturates Screen (BADAEV=652) Ur Tricyclics Screen (CZAHNO=057) Ur Phencyclidine Scrn (CUTOFF=25) Ur Amphetamine Screen (DYNGHP=368) U Methamphetamines Scrn (YEQUJY=976) U Benzodiazepines Scrn (QYEQNZ=789) U Cocaine Metab Screen (MOISMM=060) U Marijuana (THC) Screen (CUTOFF=50) Ethyl Alcohol (0.00) gm% Ketones (0.0-0.3) mM SARS-CoV-2 RNA (KATARINA) (NEGATIVE) Meds: Medications Generic Name Dose Route Start Last Admin Trade Name Freq PRN Reason Stop Dose Admin Hydrocodone Bitart/Acetaminophen 1 tab 03/06/20 17:55 [place] 325-5 Mg PO Q4H PRN Pain (moderate 4-6) Albuterol/Ipratropium 3 ml 03/06/20 17:55 Duoneb 3.0-0.5 Mg/3 Ml NEB Q4H PRN Shortness Of Breath/wheezing Dexamethasone 6 mg 03/07/20 09:00 Dexamethasone PO DAILY MIGUEL ANGEL Guaifenesin/Phenylephrine HCl 10 ml 03/06/20 18:03 Robitussin Dm PO Q4H PRN Cough Heparin Sodium (Porcine) 5,000 units 03/06/20 18:00 03/06/20 18:15 Heparin Sodium SUBCUT 5,000 units Q8H MIGUEL ANGEL Administration Hydromorphone HCl 0.5 mg 03/06/20 17:55 Dilaudid IVPUSH Q2H PRN Pain (severe 7-10) Lactated Ringer's 1,000 mls @ 999 mls/hr 03/06/20 13:30 03/06/20 15:48 Ringers, Lactated IV 999 mls/hr ASDIRECTED MIGUEL ANGEL Administration Lactated Ringer's 1,000 mls @ 999 mls/hr 03/06/20 15:15 03/06/20 16:57 Ringers, Lactated IV 999 mls/hr ASDIRECTED MIGUEL ANGEL Administration Potassium Chloride 10 meq/ 100 mls @ 100 mls/hr 03/06/20 19:00 Premix IV 03/06/20 21:59 Q1H MIGUEL ANGEL Promethazine HCl 6.25 mg/ 50.25 mls @ 100 mls/hr 03/06/20 17:55 Sodium Chloride IV Q6H PRN Nausea/Vomiting Insulin Human Regular 100 unit 100 mls @ 707.604 mls/hr 03/06/20 18:15 / Sodium Chloride IV TITRATE MIGUEL ANGEL Protocol 6 UNITS/KG/HR Ceftriaxone Sodium 1 gm/ 100 mls @ 200 mls/hr 03/06/20 18:30 Sodium Chloride IV 03/11/20 18:31 Q24H MIGUEL ANGEL Azithromycin 500 mg/ Sodium 250 mls @ 250 mls/hr 03/06/20 19:00 Chloride IV Q24H MIGUEL ANGEL Insulin Glargine 25 unit 03/07/20 18:02 Lantus SUBCUT 03/07/20 18:03 DAILY ONE Ondansetron HCl 4 mg 03/06/20 17:55 Zofran IV Q6H PRN Nausea/Vomiting Discontinued Medications Generic Name Dose Route Start Last Admin Trade Name Freq PRN Reason Stop Dose Admin Dexamethasone 6 mg 03/06/20 18:00 03/06/20 18:15 Decadron IVPUSH 03/06/20 18:01 6 mg ONETIME ONE Administration Hydromorphone HCl 1 mg 03/06/20 13:29 03/06/20 13:55 Dilaudid IVPUSH 03/06/20 13:30 1 mg ONETIME ONE Administration Potassium Chloride 10 meq/ 100 mls @ 100 mls/hr 03/06/20 15:15 03/06/20 16:55 Premix IV 03/06/20 19:14 Not Given Q1H MIGUEL ANGEL Insulin Human Regular 100 unit 100 mls @ 3 mls/hr 03/06/20 15:15 03/06/20 17:40 / Sodium Chloride IV 2 units/hr TITRATE MIGUEL ANGEL 2 mls/hr Titration Protocol 3 UNITS/HR Bamlanivimab 700 mg/ Sodium 200 mls @ 200 mls/hr 03/06/20 15:59 03/06/20 16:51 Chloride IV 03/06/20 16:00 200 mls/hr ONETIME ONE Administration Protocol Insulin Human Regular 3 unit 03/06/20 13:24 03/06/20 14:01 Humulin R IV 03/06/20 13:25 3 unit ONETIME ONE Administration Metoclopramide HCl 10 mg 03/06/20 13:29 03/06/20 13:56 Reglan IVPUSH 03/06/20 13:30 10 mg ONETIME ONE Administration - Radiology Interpretation Free Text/Narrative:: 20-year-old male who has been diagnosed with diabetes at age 14 I x6 years presents to the ED reporting that he is not used insulin for 1 month as he could not afford it and was homeless for a period of time. He now apparently has a roof over his head. He started to feel unwell over the last 3 days. Hard to eat. Headache cough with some white sputum production. Concerned he may have Covid. No noted fever or chills. Generalized weakness and nausea. No diarrhea. Blood sugar at the bedside was greater than 400. Patient admits to polyuria and polydipsia. He is not sure how much weight he has lost in the last month. Assessment is that of diabetic ketoacidosis with strong smell of ketones on his breath. Plan routine labs to be obtained including a coronavirus screen. 1 view chest x-ray ECG to be done. IV will be Ringer's lactate at open. He will be started on insulin infusion at 3 units an hour. Blood sugars will be checked randomly every 1 hour. - Re-Assessments/Exams Free Text/Narrative Re-Assessment/Exam: 03/06/20 14:09 Total white count is 9.89 with a left shift of 78.7% neutrophils on the auto differential. Hemoglobin is 15.2 with hematocrit of 46.1. MCV is actually a little on the low side at 78.7 suggesting possible iron deficiency. Platelet counts 263,000 PT is 11.4 with an INR of 1.07 PTT is 30. Serum phosphorus is 3.4 magnesium is 1.9 03/06/20 14:12 x-ray done portably does suggest bilateral lower lobe infiltrates suggestive of COVID-19 viral pneumonia. Cardiac silhouette is otherwise normal no pleural effusion no consolidated pneumonia no pneumothorax. 03/06/20 14:38 Chemistry shows a sodium of 132 and a potassium of 3.3. Chloride is 94 with a bicarb of 9 anion gap is 32.3. BUN is 8 with a creatinine of 1.6 GFR is greater than 60. Glucose is 526. Serum osmolality is pending calcium 9.6. Magnesium 1.9 liver function normal troponin I less than 0.017 C-reactive protein pending total protein is 8.8 albumin fraction 3.1 globulin 5.7. COVID- 19 screen is pending. ABGs this became available and they indicate a pH of 7.20. PCO2 is 19.4 with a PO2 of 91. O2 sats are 95% on room air. 03/06/20 15:01 Globin A1c is markedly elevated at 11.40 indicating very poor control of his blood sugars as would be indicated from not taking insulin for the last month. Serum osmolality is still pending. C-reactive protein is elevated at 32.4 I am still waiting for his coronavirus screen. 03/06/20 15:16 blood sugar at 1500 hrs. came back at 446. Therefore he will continue insulin infusion at 3 units an hour and continue Ringer's lactate at open. A K rider 10 mEq of potassium will be given per hour x4 doses. I am awaiting his coronavirus screen before deciding on admission to ICU. Serum Ketones are elevated at 8.93. Lipase was normal at 50 03/06/20 15:31 Covid--19 screen has come back positive. I have discussed the option with the patient of receiving monoclonal antibody because of his high risk from COVID-19 illness and uncontrolled type 1 diabetes. He has excepted the potential risks of monoclonal antibody therapy. I will therefore start him on Bamlanivumab 700mg IV in the ED . I spoke with the patient Mr. Kumar Woodard and provided information about bamlanivimab treatment for himself Kumar Woodard. I offered the patient and caregiver LISAA Bamlanivimad fact sheet to read and review. I stated the drug has been approved by an emergency use authorization process and has not been fully proven by the FDA at this time. The patient meets the EUA requirements. I discussed there are other potential treatment options that are currently not FDA approved to treat COVID-19 as well. Offered opportunity to ask questions and all questions were answered. Patient Mr. Kumar Woodard voiced understanding and agreed to proceed with treatment for himsel 03/06/20 16:59 Serum osmolality is elevated at 331. Total iron binding capacity is 310 elevated. Serum iron is low at 27. Percent saturation is 9%. Serum transferrin is 248 ferritin elevated at 841. LDH elevated at 342. Patient will be admitted to the intensive care unit for management of his diabetic ketoacidosis state once he has completed his monoclonal antibody infusion and monitoring for an hour afterwards. Have discussed the case with Dr. Maria and he is aware the patient will need admission to the intensive care unit once he has completed monoclonal antibody infusion in the ED as an outpatient. Dr. Maria will see the patient in the ED 03/06/20 18:31 the last blood sugar was 387. I have reduced the insulin drip to 2 units an hour from 3 units an hour. He is currently on his fourth liter of Ringer's lactate has completed the monoclonal antibody IV therapy at 1700 hrs. and watched until now with no adverse effects at all. He will therefore now be admitted to the intensive care unit to manage his diabetic ketoacidosis state. Departure - Departure Time of Disposition: 18:34 Disposition: Admitted As Inpatient 66 Condition: Fair Clinical Impression: Diabetic ketoacidosis, COVID-19 determined by clinical diagnostic criteria, Metabolic acidosis, Hypokalemia, Iron deficiency - Discharge Information Referrals: PCP,None [Primary Care Provider] - Forms: ED Department Discharge Sepsis Event Note (ED) - Evaluation Sepsis Screening Result: No Definite Risk - Focused Exam Vital Signs: Vital Signs Temp Pulse Resp BP Pulse Ox 03/06/20 12:52 36.3 C 126 H 20 149/98 H 95 - My Orders Last 24 Hours: My Active Orders 03/06/20 13:19 EKG Documentation Completion [RC] STAT 03/06/20 13:20 Blood Culture x2 Reflex Set [OM.PC] Stat 03/06/20 13:22 Blood Culture x2 Reflex Set [OM.PC] Stat 03/06/20 13:30 Lactated Ringers [Ringers, Lactated] 1,000 ml IV ASDIRECTED 03/06/20 13:45 CULTURE BLOOD [BC] Stat 03/06/20 13:50 CULTURE BLOOD [BC] Stat 03/06/20 15:15 Lactated Ringers [Ringers, Lactated] 1,000 ml IV ASDIRECTED 03/06/20 19:00 Potassium Chloride [KCl 10 MEQ in Water 100 ML] 10 meq Premix Bag 1 bag IV Q1H - Assessment/Plan Last 24 Hours: My Active Orders 03/06/20 13:19 EKG Documentation Completion [RC] STAT 03/06/20 13:20 Blood Culture x2 Reflex Set [OM.PC] Stat 03/06/20 13:22 Blood Culture x2 Reflex Set [OM.PC] Stat 03/06/20 13:30 Lactated Ringers [Ringers, Lactated] 1,000 ml IV ASDIRECTED 03/06/20 13:45 CULTURE BLOOD [BC] Stat 03/06/20 13:50 CULTURE BLOOD [BC] Stat 03/06/20 15:15 Lactated Ringers [Ringers, Lactated] 1,000 ml IV ASDIRECTED 03/06/20 19:00 Potassium Chloride [KCl 10 MEQ in Water 100 ML] 10 meq Premix Bag 1 bag IV Q1H
[2020-03-06] MEDS: Lactated Ringers 1,000 ML IV SCH ×2 (13:55→15:48)
--- NOTE | 2020-03-06 14:23 | CR ---
PROCEDURE INFORMATION: Exam: XR Chest, 1 View Exam date and time: 03/06/2020 1:24 PM Age: 20 years old Clinical indication: Patient HX: Diabetic ketoacidosis, mild cough TECHNIQUE: Imaging protocol: XR of the chest Views: 1 view. COMPARISON: Prior chest radiographs of 06/29/2019 FINDINGS: Lungs: Small areas of increased density in the lung bases bilaterally, a new finding, suspicious for patchy airspace disease. Lung volumes are low. Lungs otherwise appear clear radiographically. Pleural space: No pleural effusions. No pneumothorax. Heart/Mediastinum: No significant cardiomegaly. Bones/joints: No acute abnormality. IMPRESSION: 1. Suspect small areas of airspace disease in the lung bases bilaterally. A patchy bibasilar pneumonia could have this appearance. 2. See above for remaining findings. Thank you for allowing us to participate in the care of your patient. Dictated and Authenticated by: Casie Gomez MD 03/06/2020 3:21 PM Central Time ([place] & [place]) [place]
[2020-03-06 14:41] LABS: HEMOGLOBIN A1C 11.4 % (4.50-6.20)
[2020-03-06] MEDS ORDERED: Lactated Ringers 1,000 ML IV SCH (15:15)
[2020-03-06] MEDS: Potassium Chloride 10 MEQ in Premix Bag 1 BAG IV SCH ×4 (15:52→23:22)
--- NOTE | 2020-03-06 16:48 | PCM.HP.2 ---
H&P History of Present Illness - General Date of Service: 03/06/20 Admit Problem/Dx: Generalized Weakness Source of Information: Patient, Provider, RN Notes Reviewed History Limitations: Reports: No Limitations. Denies: Respiratory Distress - History of Present Illness Other HPI/Comments: This is a 20 year with hx/o Asthma, ADHD, DM1, Eczema, and Obesity who comes to ED with complaints of generalized weakness associated with nausea and abdominal pain. He is on insulin but has been out of supplies a month ago. He has been feeling ill for the past 3-4 days with dry cough, headache, and chest discomf ort. He is aware his glucose has been considerably elevated. No Diarrhea or loss of sense of taste or smell. His initial work up shows a CBC remarkable for WBC of 9.89, MCV of 78.7, and Neutrophils of 78.7%. His Coags studies are within normal limits. His ABG shows mized acidosis with a pH of 7.20, pCO2 of 19.4, pO2 of 91, HCO3 of 7.3 and O2 sat of 95.5% on RA. His sodium is significant for Na of 132, K of 3.3, Cl of 94, CO2 of 9, AG of 32.32, Cr of 1.6,BS of 466, A1C of 11.40, Serum Osm of 331, iron of 27, Ferritin of 841, LDH of 342, CRP of 32.4, and Albumin of 3.1. His RACHEL is negative. Ketones of 8.93. His rapid test is positive for Covid. Patient is coming in for further treatment of DKA. Generalized Pain Score (Numeric/FACES): 3 - Related Data Allergies/Adverse Reactions: Allergies Allergy/AdvReac Type Severity Reaction Status Date / Time No Known Allergies Allergy Verified 03/06/20 23:52 Home Medications: Home Meds metFORMIN HCl [Metformin HCl] 500 mg PO BID #30 tablet 07/04/19 [Rx] Insulin Glarg,Human.Rec.Analog [Lantus] 60 unit SUBCUT BEDTIME #1 pen 07/14/19 [Rx] Insulin Lispro [HumaLOG] 24 unit SQ TIDAC 03/07/20 [History] Past Medical History Respiratory History: Reports: Asthma Musculoskeletal History: Reports: Fracture Psychiatric History: Reports: ADHD Endocrine/Metabolic History: Reports: Diabetes, Type I (Diagnosed with type 1 diabetes at age 14. Previous history of DKA), Obesity/BMI 30+ Other Endocrine/Metabolic History: hx DKA Dermatologic History: Reports: Eczema - Past Surgical History HEENT Surgical History: Reports: Oral Surgery Respiratory Surgical History: Reports: None Endocrine Surgical History: Reports: None Musculoskeletal Surgical History: Reports: ORIF Other Musculoskeletal Surgeries/Procedures:: right elbow Social & Family History - Family History Family Medical History: No Pertinent Family History - Tobacco Use Tobacco Use Status *Q: Never Tobacco User Second Hand Smoke Exposure: No - Caffeine Use Caffeine Use: Reports: Coffee, Energy Drinks, Soda - Recreational Drug Use Recreational Drug Use: No - Living Situation & Occupation Living situation: Reports: Single, with Family Occupation: Unemployed H&P Review of Systems - Review of Systems: Review Of Systems: See Below General: Reports: Fever, Chills, Weakness, Fatigue HEENT: Reports: Other (loss of sense of taste and smell). Denies: Sore Throat Pulmonary: Reports: Shortness of Breath, Pleuritic Chest Pain, Cough Cardiovascular: Denies: Chest Pain Gastrointestinal: Denies: Abdominal Pain, Nausea, Vomiting Genitourinary: Reports: No Symptoms Musculoskeletal: Reports: No Symptoms Skin: Denies: Rash Psychiatric: Denies: Confusion, Depression, Anxiety Neurological: Denies: Gait Disturbance Hematologic/Lymphatic: Reports: No Symptoms Immunologic: Reports: No Symptoms Exam - Exam Exam: See Below - Vital Signs Vital Signs: Last Vital Signs Temp 36.3 C 03/06/20 12:52 Pulse 126 H 03/06/20 12:52 Resp 20 03/06/20 12:52 BP 149/98 H 03/06/20 12:52 Pulse Ox 95 03/06/20 12:52 Weight: 117.934 kg - Exam Quality Assessment: No: Supplemental Oxygen General: Alert, Oriented, Cooperative HEENT: Conjunctiva Clear, EACs Clear, EOMI, Hearing Intact, Nares Patent, Normal Nasal Septum, Posterior Pharynx Clear, Pupils Equal, Pupils Reactive Neck: Supple, Trachea Midline Lungs: Clear to Auscultation, Normal Respiratory Effort Cardiovascular: Regular Rate, Regular Rhythm GI/Abdominal Exam: Normal Bowel Sounds, Soft, Non-Tender, No Organomegaly, No Distention, No Abnormal Bruit (Male) Exam: Deferred Rectal (Males) Exam: Deferred Back Exam: Normal Inspection, Full Range of Motion Extremities: Normal Inspection, Normal Range of Motion, Non-Tender, No Pedal Edema, Normal Capillary Refill Peripheral Pulses: 2+: Dorsalis Pedis (L), Dorsalis Pedis (R) Skin: Warm, Dry, Intact Neuro Extensive - Mental Status: Oriented x3, Normal Cognition, Memory Intact Neuro Extensive - Motor, Sensory, Reflexes: CN II-XII Intact, Normal Gait, Normal Reflexes Psychiatric: Alert, Normal Affect, Normal Mood - Patient Data Lab Results Last 24 hrs: Laboratory Results - last 24 hr 03/06/20 03/06/20 03/06/20 Range/Units 13:20 13:20 13:28 WBC (4.23-9.07) K/mm3 RBC (4.63-6.08) M/mm3 Hgb (13.7-17.5) gm/dl Hct (40.1-51.0) % MCV (79.0-92.2) fl MCH (25.7-32.2) pg MCHC (32.2-35.5) g/dl RDW Std Deviation (35.1-43.9) fL Plt Count (163-337) K/mm3 MPV (9.4-12.3) fl Neut % (Auto) (34.0-67.9) % Lymph % (Auto) (21.8-53.1) % [place] % (Auto) (5.3-12.2) % Eos % (Auto) (0.8-7.0) Baso % (Auto) (0.1-1.2) % Neut # (Auto) (1.78-5.38) K/mm3 Lymph # (Auto) (1.32-3.57) K/mm3 [place] # (Auto) (0.30-0.82) K/mm3 Eos # (Auto) (0.04-0.54) K/mm3 Baso # (Auto) (0.01-0.08) K/mm3 Manual Slide Review PT (9.7-12.0) SECONDS INR APTT (21.7-31.4) SECONDS Puncture Site ABG pH (7.35-7.45) ABG pCO2 (35.0-45.0) mmHg ABG pO2 (80.0-100.0) mmHg ABG HCO3 (22.0-26.0) meq/L ABG O2 Saturation (96.0-97.0) % ABG Base Excess (-2-2.0) Brandon Test A-a Gradient mmHg O2 Delivery Device Oxygen Flow Rate FiO2 (21.00-100.00) % Sodium 132 L (136-145) mEq/L Potassium 3.3 L (3.5-5.1) mEq/L Chloride 94 L (98-107) mEq/L Carbon Dioxide 9 L D (21-32) mEq/L Anion Gap 32.3 H (5-15) BUN 8 (7-18) mg/dL Creatinine 1.6 H (0.7-1.3) mg/dL Est Cr Clr Drug Dosing 92.81 mL/min Estimated GFR (MDRD) > 60 (>60) mL/min BUN/Creatinine Ratio 5.0 L (14-18) Glucose 526 H* (74-106) mg/dL Hemoglobin A1c 11.40 H (4.50-6.20) % Serum Osmolality (280-300) mosm/kg Calcium 9.6 (8.5-10.1) mg/dL Phosphorus (2.6-4.7) mg/dL Magnesium (1.8-2.4) mg/dl Iron (65-175) ug/dL TIBC (100-400) ug/dL % Saturation (20-55) % Transferrin (202-364) mg/dL Ferritin (26-388) ng/ml Total Bilirubin 0.6 (0.2-1.0) mg/dL AST 35 (15-37) U/L ALT 50 (16-63) U/L Alkaline Phosphatase 102 (46-116) U/L Lactate Dehydrogenase (85-227) U/L Troponin I < 0.017 (0.00-0.056) ng/mL C-Reactive Protein (<1.0) mg/dL NT-Pro-B Natriuret Pep (0-125) pg/mL Total Protein 8.8 H (6.4-8.2) g/dl Albumin 3.1 L (3.4-5.0) g/dl Globulin 5.7 gm/dL Albumin/Globulin Ratio 0.5 L (1-2) Lipase 50 L (73-393) U/L Ethyl Alcohol 0.00 (0.00) gm% Ketones (0.0-0.3) mM SARS-CoV-2 RNA (KATARINA) (NEGATIVE) 03/06/20 03/06/20 03/06/20 Range/Units 13:28 13:28 13:28 WBC 9.89 H (4.23-9.07) K/mm3 RBC 5.86 (4.63-6.08) M/mm3 Hgb 15.2 (13.7-17.5) gm/dl Hct 46.1 (40.1-51.0) % MCV 78.7 L (79.0-92.2) fl MCH 25.9 (25.7-32.2) pg MCHC 33.0 (32.2-35.5) g/dl RDW Std Deviation 40.6 (35.1-43.9) fL Plt Count 263 (163-337) K/mm3 MPV 11.5 (9.4-12.3) fl Neut % (Auto) 78.7 H (34.0-67.9) % Lymph % (Auto) 12.2 L (21.8-53.1) % [place] % (Auto) 8.7 (5.3-12.2) % Eos % (Auto) 0 L (0.8-7.0) Baso % (Auto) 0.2 (0.1-1.2) % Neut # (Auto) 7.78 H (1.78-5.38) K/mm3 Lymph # (Auto) 1.21 L (1.32-3.57) K/mm3 [place] # (Auto) 0.86 H (0.30-0.82) K/mm3 Eos # (Auto) 0.00 L (0.04-0.54) K/mm3 Baso # (Auto) 0.02 (0.01-0.08) K/mm3 Manual Slide Review Normal smear PT 11.4 (9.7-12.0) SECONDS INR 1.07 APTT 30.0 (21.7-31.4) SECONDS Puncture Site ABG pH (7.35-7.45) ABG pCO2 (35.0-45.0) mmHg ABG pO2 (80.0-100.0) mmHg ABG HCO3 (22.0-26.0) meq/L ABG O2 Saturation (96.0-97.0) % ABG Base Excess (-2-2.0) Brandon Test A-a Gradient mmHg O2 Delivery Device Oxygen Flow Rate FiO2 (21.00-100.00) % Sodium (136-145) mEq/L Potassium (3.5-5.1) mEq/L Chloride (98-107) mEq/L Carbon Dioxide (21-32) mEq/L Anion Gap (5-15) BUN (7-18) mg/dL Creatinine (0.7-1.3) mg/dL Est Cr Clr Drug Dosing mL/min Estimated GFR (MDRD) (>60) mL/min BUN/Creatinine Ratio (14-18) Glucose (74-106) mg/dL Hemoglobin A1c (4.50-6.20) % Serum Osmolality (280-300) mosm/kg Calcium (8.5-10.1) mg/dL Phosphorus (2.6-4.7) mg/dL Magnesium (1.8-2.4) mg/dl Iron (65-175) ug/dL TIBC (100-400) ug/dL % Saturation (20-55) % Transferrin (202-364) mg/dL Ferritin (26-388) ng/ml Total Bilirubin (0.2-1.0) mg/dL AST (15-37) U/L ALT (16-63) U/L Alkaline Phosphatase (46-116) U/L Lactate Dehydrogenase (85-227) U/L Troponin I (0.00-0.056) ng/mL C-Reactive Protein (<1.0) mg/dL NT-Pro-B Natriuret Pep (0-125) pg/mL Total Protein (6.4-8.2) g/dl Albumin (3.4-5.0) g/dl Globulin gm/dL Albumin/Globulin Ratio (1-2) Lipase (73-393) U/L Ethyl Alcohol (0.00) gm% Ketones 8.93 (0.0-0.3) mM SARS-CoV-2 RNA (KATARINA) (NEGATIVE) 03/06/20 03/06/20 03/06/20 Range/Units 13:28 13:28 13:28 WBC (4.23-9.07) K/mm3 RBC (4.63-6.08) M/mm3 Hgb (13.7-17.5) gm/dl Hct (40.1-51.0) % MCV (79.0-92.2) fl MCH (25.7-32.2) pg MCHC (32.2-35.5) g/dl RDW Std Deviation (35.1-43.9) fL Plt Count (163-337) K/mm3 MPV (9.4-12.3) fl Neut % (Auto) (34.0-67.9) % Lymph % (Auto) (21.8-53.1) % [place] % (Auto) (5.3-12.2) % Eos % (Auto) (0.8-7.0) Baso % (Auto) (0.1-1.2) % Neut # (Auto) (1.78-5.38) K/mm3 Lymph # (Auto) (1.32-3.57) K/mm3 [place] # (Auto) (0.30-0.82) K/mm3 Eos # (Auto) (0.04-0.54) K/mm3 Baso # (Auto) (0.01-0.08) K/mm3 Manual Slide Review PT (9.7-12.0) SECONDS INR APTT (21.7-31.4) SECONDS Puncture Site ABG pH (7.35-7.45) ABG pCO2 (35.0-45.0) mmHg ABG pO2 (80.0-100.0) mmHg ABG HCO3 (22.0-26.0) meq/L ABG O2 Saturation (96.0-97.0) % ABG Base Excess (-2-2.0) Brandon Test A-a Gradient mmHg O2 Delivery Device Oxygen Flow Rate FiO2 (21.00-100.00) % Sodium (136-145) mEq/L Potassium (3.5-5.1) mEq/L Chloride (98-107) mEq/L Carbon Dioxide (21-32) mEq/L Anion Gap (5-15) BUN (7-18) mg/dL Creatinine (0.7-1.3) mg/dL Est Cr Clr Drug Dosing mL/min Estimated GFR (MDRD) (>60) mL/min BUN/Creatinine Ratio (14-18) Glucose (74-106) mg/dL Hemoglobin A1c (4.50-6.20) % Serum Osmolality 331 H (280-300) mosm/kg Calcium (8.5-10.1) mg/dL Phosphorus 3.4 (2.6-4.7) mg/dL Magnesium 1.9 (1.8-2.4) mg/dl Iron 27 L (65-175) ug/dL TIBC 310 (100-400) ug/dL % Saturation 9 L (20-55) % Transferrin 248 (202-364) mg/dL Ferritin (26-388) ng/ml Total Bilirubin (0.2-1.0) mg/dL AST (15-37) U/L ALT (16-63) U/L Alkaline Phosphatase (46-116) U/L Lactate Dehydrogenase (85-227) U/L Troponin I (0.00-0.056) ng/mL C-Reactive Protein 32.4 H* (<1.0) mg/dL NT-Pro-B Natriuret Pep 23 (0-125) pg/mL Total Protein (6.4-8.2) g/dl Albumin (3.4-5.0) g/dl Globulin gm/dL Albumin/Globulin Ratio (1-2) Lipase (73-393) U/L Ethyl Alcohol (0.00) gm% Ketones (0.0-0.3) mM SARS-CoV-2 RNA (KATARINA) (NEGATIVE) 03/06/20 03/06/20 03/06/20 Range/Units 14:13 14:35 14:38 WBC (4.23-9.07) K/mm3 RBC (4.63-6.08) M/mm3 Hgb (13.7-17.5) gm/dl Hct (40.1-51.0) % MCV (79.0-92.2) fl MCH (25.7-32.2) pg MCHC (32.2-35.5) g/dl RDW Std Deviation (35.1-43.9) fL Plt Count (163-337) K/mm3 MPV (9.4-12.3) fl Neut % (Auto) (34.0-67.9) % Lymph % (Auto) (21.8-53.1) % [place] % (Auto) (5.3-12.2) % Eos % (Auto) (0.8-7.0) Baso % (Auto) (0.1-1.2) % Neut # (Auto) (1.78-5.38) K/mm3 Lymph # (Auto) (1.32-3.57) K/mm3 [place] # (Auto) (0.30-0.82) K/mm3 Eos # (Auto) (0.04-0.54) K/mm3 Baso # (Auto) (0.01-0.08) K/mm3 Manual Slide Review PT (9.7-12.0) SECONDS INR APTT (21.7-31.4) SECONDS Puncture Site Rt radial ABG pH 7.20 L (7.35-7.45) ABG pCO2 19.4 L* (35.0-45.0) mmHg ABG pO2 91.0 (80.0-100.0) mmHg ABG HCO3 7.3 L (22.0-26.0) meq/L ABG O2 Saturation 95.5 L (96.0-97.0) % ABG Base Excess -19.5 L (-2-2.0) Brandon Test Positive A-a Gradient 35 mmHg O2 Delivery Device Room air Oxygen Flow Rate 0.0 FiO2 21.00 (21.00-100.00) % Sodium (136-145) mEq/L Potassium (3.5-5.1) mEq/L Chloride (98-107) mEq/L Carbon Dioxide (21-32) mEq/L Anion Gap (5-15) BUN (7-18) mg/dL Creatinine (0.7-1.3) mg/dL Est Cr Clr Drug Dosing mL/min Estimated GFR (MDRD) (>60) mL/min BUN/Creatinine Ratio (14-18) Glucose 466 H (74-106) mg/dL Hemoglobin A1c (4.50-6.20) % Serum Osmolality (280-300) mosm/kg Calcium (8.5-10.1) mg/dL Phosphorus (2.6-4.7) mg/dL Magnesium (1.8-2.4) mg/dl Iron (65-175) ug/dL TIBC (100-400) ug/dL % Saturation (20-55) % Transferrin (202-364) mg/dL Ferritin (26-388) ng/ml Total Bilirubin (0.2-1.0) mg/dL AST (15-37) U/L ALT (16-63) U/L Alkaline Phosphatase (46-116) U/L Lactate Dehydrogenase (85-227) U/L Troponin I (0.00-0.056) ng/mL C-Reactive Protein (<1.0) mg/dL NT-Pro-B Natriuret Pep (0-125) pg/mL Total Protein (6.4-8.2) g/dl Albumin (3.4-5.0) g/dl Globulin gm/dL Albumin/Globulin Ratio (1-2) Lipase (73-393) U/L Ethyl Alcohol (0.00) gm% Ketones (0.0-0.3) mM SARS-CoV-2 RNA (KATARINA) Positive H (NEGATIVE) 03/06/20 03/06/20 03/06/20 Range/Units 15:40 15:40 15:40 WBC (4.23-9.07) K/mm3 RBC (4.63-6.08) M/mm3 Hgb (13.7-17.5) gm/dl Hct (40.1-51.0) % MCV (79.0-92.2) fl MCH (25.7-32.2) pg MCHC (32.2-35.5) g/dl RDW Std Deviation (35.1-43.9) fL Plt Count (163-337) K/mm3 MPV (9.4-12.3) fl Neut % (Auto) (34.0-67.9) % Lymph % (Auto) (21.8-53.1) % [place] % (Auto) (5.3-12.2) % Eos % (Auto) (0.8-7.0) Baso % (Auto) (0.1-1.2) % Neut # (Auto) (1.78-5.38) K/mm3 Lymph # (Auto) (1.32-3.57) K/mm3 [place] # (Auto) (0.30-0.82) K/mm3 Eos # (Auto) (0.04-0.54) K/mm3 Baso # (Auto) (0.01-0.08) K/mm3 Manual Slide Review PT (9.7-12.0) SECONDS INR APTT (21.7-31.4) SECONDS Puncture Site ABG pH (7.35-7.45) ABG pCO2 (35.0-45.0) mmHg ABG pO2 (80.0-100.0) mmHg ABG HCO3 (22.0-26.0) meq/L ABG O2 Saturation (96.0-97.0) % ABG Base Excess (-2-2.0) Brandon Test A-a Gradient mmHg O2 Delivery Device Oxygen Flow Rate FiO2 (21.00-100.00) % Sodium (136-145) mEq/L Potassium (3.5-5.1) mEq/L Chloride (98-107) mEq/L Carbon Dioxide (21-32) mEq/L Anion Gap (5-15) BUN (7-18) mg/dL Creatinine (0.7-1.3) mg/dL Est Cr Clr Drug Dosing mL/min Estimated GFR (MDRD) (>60) mL/min BUN/Creatinine Ratio (14-18) Glucose 417 H (74-106) mg/dL Hemoglobin A1c (4.50-6.20) % Serum Osmolality (280-300) mosm/kg Calcium (8.5-10.1) mg/dL Phosphorus (2.6-4.7) mg/dL Magnesium (1.8-2.4) mg/dl Iron (65-175) ug/dL TIBC (100-400) ug/dL % Saturation (20-55) % Transferrin (202-364) mg/dL Ferritin 841 H (26-388) ng/ml Total Bilirubin (0.2-1.0) mg/dL AST (15-37) U/L ALT (16-63) U/L Alkaline Phosphatase (46-116) U/L Lactate Dehydrogenase 342 H (85-227) U/L Troponin I (0.00-0.056) ng/mL C-Reactive Protein (<1.0) mg/dL NT-Pro-B Natriuret Pep (0-125) pg/mL Total Protein (6.4-8.2) g/dl Albumin (3.4-5.0) g/dl Globulin gm/dL Albumin/Globulin Ratio (1-2) Lipase (73-393) U/L Ethyl Alcohol (0.00) gm% Ketones (0.0-0.3) mM SARS-CoV-2 RNA (KATARINA) (NEGATIVE) Result Diagrams: 03/10/20 05:06 03/11/20 05:44 Sepsis Event Note - Evaluation Sepsis Screening Result: No Definite Risk - Focused Exam Vital Signs: Vital Signs Temp Pulse Resp BP Pulse Ox 03/06/20 12:52 36.3 C 126 H 20 149/98 H 95 Problem List Initiated/Reviewed/Updated: Yes Orders Last 24hrs: Active Orders 24 hr Category Date Time Status EKG Documentation Completion [RC] STAT Care 03/06/20 13:19 Active CULTURE BLOOD [BC] Stat Lab 03/06/20 13:45 Received CULTURE BLOOD [BC] Stat Lab 03/06/20 13:50 Received DRUG SCREEN, URINE [URCHEM] Stat Lab 03/06/20 13:45 Ordered GLUCOSE RANDOM [CHEM] Q1H Lab 03/06/20 16:00 Ordered GLUCOSE RANDOM [CHEM] Q1H Lab 03/06/20 17:00 Ordered GLUCOSE RANDOM [CHEM] Q1H Lab 03/06/20 18:00 Ordered GLUCOSE RANDOM [CHEM] Q1H Lab 03/06/20 19:00 Ordered GLUCOSE RANDOM [CHEM] Q1H Lab 03/06/20 20:00 Ordered Insulin Regular, Human [HumuLIN R] 100 unit Med 03/06/20 15:15 Active Sodium Chloride 0.9% [Normal Saline] 99 ml IV TITRATE Lactated Ringers [Ringers, Lactated] 1,000 ml Med 03/06/20 13:30 Active IV ASDIRECTED Lactated Ringers [Ringers, Lactated] 1,000 ml Med 03/06/20 15:15 Active IV ASDIRECTED Potassium Chloride [KCl 10 MEQ in Water 100 ML] 10 meq Med 03/06/20 15:15 Active Premix Bag 1 bag IV Q1H Blood Culture x2 Reflex Set [OM.PC] Stat Oth 03/06/20 13:20 Ordered Blood Culture x2 Reflex Set [OM.PC] Stat Oth 03/06/20 13:22 Ordered Medication Orders Lactated Ringer's (Ringers, Lactated) 1,000 mls @ 999 mls/hr IV ASDIRECTED MIGUEL ANGEL Last Admin: 03/06/20 15:48 Dose: 999 mls/hr Documented by: Infusion: 03/06/20 14:56 Dose: 999 mls/hr Documented by: Admin: 03/06/20 13:55 Dose: 999 mls/hr Documented by: ION Potassium Chloride 10 meq/ (Premix) 100 mls @ 100 mls/hr IV Q1H MIGUEL ANGEL Stop: 03/06/20 19:14 Last Admin: 03/06/20 15:52 Dose: 100 mls/hr Documented by: DENA Lactated Ringer's (Ringers, Lactated) 1,000 mls @ 999 mls/hr IV ASDIRECTED MIGUEL ANGEL Insulin Human Regular 100 unit (/ Sodium Chloride) 100 mls @ 353.802 mls/hr IV TITRATE MIGUEL ANGEL; Protocol Assessment/Plan Comment:: Assessment: Acute: DKA Covid-19 Infection Vial pneumonitis/Atypical pneumonia Leukocytosis with WBC of 9.89 Mixed Acidosis Pseudohyponatremia Hypokalemia Hypochloremia Increased Ag Metabolic Acidosis Acute Kidney Injury Elevated Ferritin Level Elevated LDH Elevated CRP Hypoalbuminemia Class I Obese Medical Non-compliance Chronic: Asthma ASHD DM1 Eczema DM1 Obesity Plan: Patient received Kayleen Puri's mAb in ED. Patient is on RA satting well. CXR shows b/l patchy infiltrates. Dexamethazone 6 mg daily, known to reduce duration of stay. Heparin 5000 units subQ Q8H. Veklury 5 day course, if he req uires supplemental O2. Monitor sepsis and inflammatory markers. DKA protocol-my own regimen. IV rocephin and azithromycin to cover for atypical pneumonia. Diabetic education post DKA. Serial BMP. Goal to resolve AG. - Mortality Measure Prognosis:: Good
[2020-03-06] MEDS ORDERED: Albuterol/Ipratropium 3.0-0.5 MG/3 ML Neb Soln NEB PRN (17:55)
[2020-03-06] MEDS ORDERED: Promethazine 6.25 MG in Sodium Chloride 0.9% 50 ML IV PRN (17:55)
[2020-03-06] MEDS ORDERED: Ondansetron 4 MG/2 ML SDV IV PRN (17:55)
[2020-03-06] MEDS ORDERED: HYDROmorphone 0.5 MG/0.5 ML Syringe IVPUSH PRN (17:55)
[2020-03-06] MEDS ORDERED: Acetaminophen/HYDROcodone 325-5 MG Tab PO PRN (17:55)
[2020-03-06] MEDS ORDERED: Dexamethasone 10 MG/ML SDV IVPUSH ONE (18:00)
[2020-03-06] MEDS ORDERED: guaiFENesin/Dextromethorphan 100-10 MG/5 ML Soln 5 ML Cup PO PRN (18:03)
[2020-03-06] MEDS: Heparin Sodium 5,000 Units/ML Vial SUBCUT SCH (18:15)
[2020-03-06] MEDS ORDERED: cefTRIAXone 1 GM in Sodium Chloride 0.9% 100 ML IV SCH (18:30)
[2020-03-06] MEDS ORDERED: Insulin Glarg,Human.Rec.Analog 100 Unit/ML SUBCUT ONE ×2 (18:45→21:19)
[2020-03-06] MEDS ORDERED: Sodium Bicarbonate 75 MEQ in Sodium Chloride 0.45% 1,000 ML IV SCH (19:30)
[2020-03-06] MEDS: Azithromycin 500 MG in Sodium Chloride 0.9% 250 ML IV SCH (21:10)
[2020-03-07] MEDS: Dextrose 5% in Water 1,000 ML IV SCH ×4 (01:22→19:21)
[2020-03-07] MEDS: Potassium Chloride 10 MEQ in Premix Bag 1 BAG IV SCH (01:30)
[2020-03-07] MEDS: Heparin Sodium 5,000 Units/ML Vial SUBCUT SCH ×3 (01:32→17:06)
[2020-03-07] MEDS ORDERED: Potassium Chloride 20 MEQ Tab.ER PO ONE ×3 (06:38→19:13)
[2020-03-07] MEDS ORDERED: Dexamethasone 4 MG Tab PO SCH (09:00)
--- NOTE | 2020-03-07 09:14 | PCM.PN ---
- General Info Date of Service: 03/07/20 Admission Dx/Problem (Free Text): Generalized Weakness Subjective Update: No overnight or acute issues. He rested well last night. He is on room air. No fever or chills. No respiratory or cardiovascular complaints. No GI/ complaints except he is hungry. Functional Status: Reports: Pain Controlled - Review of Systems General: Denies: Fever, Chills HEENT: Reports: No Symptoms Pulmonary: Denies: Shortness of Breath, Cough Cardiovascular: Denies: Chest Pain Gastrointestinal: Denies: Abdominal Pain, Nausea, Vomiting Genitourinary: Denies: Incontinence Musculoskeletal: Denies: Neck Pain, Back Pain Skin: Denies: Rash Neurological: Denies: Dizziness Psychiatric: Denies: Depression, Anxiety - Patient Data Vitals - Most Recent: Last Vital Signs Temp 36.5 C 03/07/20 04:00 Pulse 96 03/07/20 07:00 Resp 18 03/07/20 04:00 BP 122/75 03/07/20 04:00 Pulse Ox 96 03/07/20 07:00 Weight - Most Recent: 113.852 kg I&O - Last 24 Hours: Intake & Output 03/06/20 03/07/20 03/07/20 22:59 06:59 14:59 Intake Total 250 1264 Output Total 700 800 Balance -450 464 Lab Results Last 24 Hours: Laboratory Results - last 24 hr 03/06/20 03/06/20 03/06/20 Range/Units 13:20 13:20 13:28 WBC (4.23-9.07) K/mm3 RBC (4.63-6.08) M/mm3 Hgb (13.7-17.5) gm/dl Hct (40.1-51.0) % MCV (79.0-92.2) fl MCH (25.7-32.2) pg MCHC (32.2-35.5) g/dl RDW Std Deviation (35.1-43.9) fL Plt Count (163-337) K/mm3 MPV (9.4-12.3) fl Neut % (Auto) (34.0-67.9) % Lymph % (Auto) (21.8-53.1) % [place] % (Auto) (5.3-12.2) % Eos % (Auto) (0.8-7.0) Baso % (Auto) (0.1-1.2) % Neut # (Auto) (1.78-5.38) K/mm3 Lymph # (Auto) (1.32-3.57) K/mm3 [place] # (Auto) (0.30-0.82) K/mm3 Eos # (Auto) (0.04-0.54) K/mm3 Baso # (Auto) (0.01-0.08) K/mm3 Manual Slide Review PT (9.7-12.0) SECONDS INR APTT (21.7-31.4) SECONDS Puncture Site ABG pH (7.35-7.45) ABG pCO2 (35.0-45.0) mmHg ABG pO2 (80.0-100.0) mmHg ABG HCO3 (22.0-26.0) meq/L ABG O2 Saturation (96.0-97.0) % ABG Base Excess (-2-2.0) Brandon Test A-a Gradient mmHg O2 Delivery Device Oxygen Flow Rate FiO2 (21.00-100.00) % Sodium 132 L (136-145) mEq/L Potassium 3.3 L (3.5-5.1) mEq/L Chloride 94 L (98-107) mEq/L Carbon Dioxide 9 L D (21-32) mEq/L Anion Gap 32.3 H (5-15) BUN 8 (7-18) mg/dL Creatinine 1.6 H (0.7-1.3) mg/dL Est Cr Clr Drug Dosing 92.81 mL/min Estimated GFR (MDRD) > 60 (>60) mL/min BUN/Creatinine Ratio 5.0 L (14-18) Glucose 526 H* (74-106) mg/dL POC Glucose (70-105) mg/dL Hemoglobin A1c 11.40 H (4.50-6.20) % Serum Osmolality (280-300) mosm/kg Calcium 9.6 (8.5-10.1) mg/dL Phosphorus (2.6-4.7) mg/dL Magnesium (1.8-2.4) mg/dl Iron (65-175) ug/dL TIBC (100-400) ug/dL % Saturation (20-55) % Transferrin (202-364) mg/dL Ferritin (26-388) ng/ml Total Bilirubin 0.6 (0.2-1.0) mg/dL AST 35 (15-37) U/L ALT 50 (16-63) U/L Alkaline Phosphatase 102 (46-116) U/L Lactate Dehydrogenase (85-227) U/L Troponin I < 0.017 (0.00-0.056) ng/mL C-Reactive Protein (<1.0) mg/dL NT-Pro-B Natriuret Pep (0-125) pg/mL Total Protein 8.8 H (6.4-8.2) g/dl Albumin 3.1 L (3.4-5.0) g/dl Globulin 5.7 gm/dL Albumin/Globulin Ratio 0.5 L (1-2) Lipase 50 L (73-393) U/L Urine Opiates Screen (NIBCMH=166) Ur Buprenorphine Scrn (CUTOFF=10) Ur Oxycodone Screen (JJJ7WG=000) Urine Methadone Screen (RHV8BN=074) Ur Propoxyphene Screen (GGYJMK=485) Ur Barbiturates Screen (YKXXJO=715) Ur Tricyclics Screen (ZYGJVA=661) Ur Phencyclidine Scrn (CUTOFF=25) Ur Amphetamine Screen (HBNFTG=822) U Methamphetamines Scrn (NEHSVO=799) U Benzodiazepines Scrn (VJTPZW=054) U Cocaine Metab Screen (HPQTNM=182) U Marijuana (THC) Screen (CUTOFF=50) Ethyl Alcohol 0.00 (0.00) gm% Ketones (0.0-0.3) mM SARS-CoV-2 RNA (KATARINA) (NEGATIVE) 03/06/20 03/06/20 03/06/20 Range/Units 13:28 13:28 13:28 WBC 9.89 H (4.23-9.07) K/mm3 RBC 5.86 (4.63-6.08) M/mm3 Hgb 15.2 (13.7-17.5) gm/dl Hct 46.1 (40.1-51.0) % MCV 78.7 L (79.0-92.2) fl MCH 25.9 (25.7-32.2) pg MCHC 33.0 (32.2-35.5) g/dl RDW Std Deviation 40.6 (35.1-43.9) fL Plt Count 263 (163-337) K/mm3 MPV 11.5 (9.4-12.3) fl Neut % (Auto) 78.7 H (34.0-67.9) % Lymph % (Auto) 12.2 L (21.8-53.1) % [place] % (Auto) 8.7 (5.3-12.2) % Eos % (Auto) 0 L (0.8-7.0) Baso % (Auto) 0.2 (0.1-1.2) % Neut # (Auto) 7.78 H (1.78-5.38) K/mm3 Lymph # (Auto) 1.21 L (1.32-3.57) K/mm3 [place] # (Auto) 0.86 H (0.30-0.82) K/mm3 Eos # (Auto) 0.00 L (0.04-0.54) K/mm3 Baso # (Auto) 0.02 (0.01-0.08) K/mm3 Manual Slide Review Normal smear PT 11.4 (9.7-12.0) SECONDS INR 1.07 APTT 30.0 (21.7-31.4) SECONDS Puncture Site ABG pH (7.35-7.45) ABG pCO2 (35.0-45.0) mmHg ABG pO2 (80.0-100.0) mmHg ABG HCO3 (22.0-26.0) meq/L ABG O2 Saturation (96.0-97.0) % ABG Base Excess (-2-2.0) Brandon Test A-a Gradient mmHg O2 Delivery Device Oxygen Flow Rate FiO2 (21.00-100.00) % Sodium (136-145) mEq/L Potassium (3.5-5.1) mEq/L Chloride (98-107) mEq/L Carbon Dioxide (21-32) mEq/L Anion Gap (5-15) BUN (7-18) mg/dL Creatinine (0.7-1.3) mg/dL Est Cr Clr Drug Dosing mL/min Estimated GFR (MDRD) (>60) mL/min BUN/Creatinine Ratio (14-18) Glucose (74-106) mg/dL POC Glucose (70-105) mg/dL Hemoglobin A1c (4.50-6.20) % Serum Osmolality (280-300) mosm/kg Calcium (8.5-10.1) mg/dL Phosphorus (2.6-4.7) mg/dL Magnesium (1.8-2.4) mg/dl Iron (65-175) ug/dL TIBC (100-400) ug/dL % Saturation (20-55) % Transferrin (202-364) mg/dL Ferritin (26-388) ng/ml Total Bilirubin (0.2-1.0) mg/dL AST (15-37) U/L ALT (16-63) U/L Alkaline Phosphatase (46-116) U/L Lactate Dehydrogenase (85-227) U/L Troponin I (0.00-0.056) ng/mL C-Reactive Protein (<1.0) mg/dL NT-Pro-B Natriuret Pep (0-125) pg/mL Total Protein (6.4-8.2) g/dl Albumin (3.4-5.0) g/dl Globulin gm/dL Albumin/Globulin Ratio (1-2) Lipase (73-393) U/L Urine Opiates Screen (JUIFDI=727) Ur Buprenorphine Scrn (CUTOFF=10) Ur Oxycodone Screen (VLI9QL=896) Urine Methadone Screen (KRA4HS=127) Ur Propoxyphene Screen (DJVRTF=344) Ur Barbiturates Screen (DUVWDV=467) Ur Tricyclics Screen (RIDMHC=108) Ur Phencyclidine Scrn (CUTOFF=25) Ur Amphetamine Screen (LQMVDD=881) U Methamphetamines Scrn (ALISMB=829) U Benzodiazepines Scrn (VXOGZJ=256) U Cocaine Metab Screen (PAHNZD=565) U Marijuana (THC) Screen (CUTOFF=50) Ethyl Alcohol (0.00) gm% Ketones 8.93 (0.0-0.3) mM SARS-CoV-2 RNA (KATARINA) (NEGATIVE) 03/06/20 03/06/20 03/06/20 Range/Units 13:28 13:28 13:28 WBC (4.23-9.07) K/mm3 RBC (4.63-6.08) M/mm3 Hgb (13.7-17.5) gm/dl Hct (40.1-51.0) % MCV (79.0-92.2) fl MCH (25.7-32.2) pg MCHC (32.2-35.5) g/dl RDW Std Deviation (35.1-43.9) fL Plt Count (163-337) K/mm3 MPV (9.4-12.3) fl Neut % (Auto) (34.0-67.9) % Lymph % (Auto) (21.8-53.1) % [place] % (Auto) (5.3-12.2) % Eos % (Auto) (0.8-7.0) Baso % (Auto) (0.1-1.2) % Neut # (Auto) (1.78-5.38) K/mm3 Lymph # (Auto) (1.32-3.57) K/mm3 [place] # (Auto) (0.30-0.82) K/mm3 Eos # (Auto) (0.04-0.54) K/mm3 Baso # (Auto) (0.01-0.08) K/mm3 Manual Slide Review PT (9.7-12.0) SECONDS INR APTT (21.7-31.4) SECONDS Puncture Site ABG pH (7.35-7.45) ABG pCO2 (35.0-45.0) mmHg ABG pO2 (80.0-100.0) mmHg ABG HCO3 (22.0-26.0) meq/L ABG O2 Saturation (96.0-97.0) % ABG Base Excess (-2-2.0) Brandon Test A-a Gradient mmHg O2 Delivery Device Oxygen Flow Rate FiO2 (21.00-100.00) % Sodium (136-145) mEq/L Potassium (3.5-5.1) mEq/L Chloride (98-107) mEq/L Carbon Dioxide (21-32) mEq/L Anion Gap (5-15) BUN (7-18) mg/dL Creatinine (0.7-1.3) mg/dL Est Cr Clr Drug Dosing mL/min Estimated GFR (MDRD) (>60) mL/min BUN/Creatinine Ratio (14-18) Glucose (74-106) mg/dL POC Glucose (70-105) mg/dL Hemoglobin A1c (4.50-6.20) % Serum Osmolality 331 H (280-300) mosm/kg Calcium (8.5-10.1) mg/dL Phosphorus 3.4 (2.6-4.7) mg/dL Magnesium 1.9 (1.8-2.4) mg/dl Iron 27 L (65-175) ug/dL TIBC 310 (100-400) ug/dL % Saturation 9 L (20-55) % Transferrin 248 (202-364) mg/dL Ferritin (26-388) ng/ml Total Bilirubin (0.2-1.0) mg/dL AST (15-37) U/L ALT (16-63) U/L Alkaline Phosphatase (46-116) U/L Lactate Dehydrogenase (85-227) U/L Troponin I (0.00-0.056) ng/mL C-Reactive Protein 32.4 H* (<1.0) mg/dL NT-Pro-B Natriuret Pep 23 (0-125) pg/mL Total Protein (6.4-8.2) g/dl Albumin (3.4-5.0) g/dl Globulin gm/dL Albumin/Globulin Ratio (1-2) Lipase (73-393) U/L Urine Opiates Screen (EPDNCN=607) Ur Buprenorphine Scrn (CUTOFF=10) Ur Oxycodone Screen (NUG6YY=313) Urine Methadone Screen (GUB2FS=745) Ur Propoxyphene Screen (BBRPRV=727) Ur Barbiturates Screen (LYHVDJ=601) Ur Tricyclics Screen (GRLUQO=288) Ur Phencyclidine Scrn (CUTOFF=25) Ur Amphetamine Screen (JDBBJR=600) U Methamphetamines Scrn (YWJUYX=642) U Benzodiazepines Scrn (QBEZDA=432) U Cocaine Metab Screen (WVBCXH=172) U Marijuana (THC) Screen (CUTOFF=50) Ethyl Alcohol (0.00) gm% Ketones (0.0-0.3) mM SARS-CoV-2 RNA (KATARINA) (NEGATIVE) 03/06/20 03/06/20 03/06/20 Range/Units 14:13 14:35 14:38 WBC (4.23-9.07) K/mm3 RBC (4.63-6.08) M/mm3 Hgb (13.7-17.5) gm/dl Hct (40.1-51.0) % MCV (79.0-92.2) fl MCH (25.7-32.2) pg MCHC (32.2-35.5) g/dl RDW Std Deviation (35.1-43.9) fL Plt Count (163-337) K/mm3 MPV (9.4-12.3) fl Neut % (Auto) (34.0-67.9) % Lymph % (Auto) (21.8-53.1) % [place] % (Auto) (5.3-12.2) % Eos % (Auto) (0.8-7.0) Baso % (Auto) (0.1-1.2) % Neut # (Auto) (1.78-5.38) K/mm3 Lymph # (Auto) (1.32-3.57) K/mm3 [place] # (Auto) (0.30-0.82) K/mm3 Eos # (Auto) (0.04-0.54) K/mm3 Baso # (Auto) (0.01-0.08) K/mm3 Manual Slide Review PT (9.7-12.0) SECONDS INR APTT (21.7-31.4) SECONDS Puncture Site Rt radial ABG pH 7.20 L (7.35-7.45) ABG pCO2 19.4 L* (35.0-45.0) mmHg ABG pO2 91.0 (80.0-100.0) mmHg ABG HCO3 7.3 L (22.0-26.0) meq/L ABG O2 Saturation 95.5 L (96.0-97.0) % ABG Base Excess -19.5 L (-2-2.0) Brandon Test Positive A-a Gradient 35 mmHg O2 Delivery Device Room air Oxygen Flow Rate 0.0 FiO2 21.00 (21.00-100.00) % Sodium (136-145) mEq/L Potassium (3.5-5.1) mEq/L Chloride (98-107) mEq/L Carbon Dioxide (21-32) mEq/L Anion Gap (5-15) BUN (7-18) mg/dL Creatinine (0.7-1.3) mg/dL Est Cr Clr Drug Dosing mL/min Estimated GFR (MDRD) (>60) mL/min BUN/Creatinine Ratio (14-18) Glucose 466 H (74-106) mg/dL POC Glucose (70-105) mg/dL Hemoglobin A1c (4.50-6.20) % Serum Osmolality (280-300) mosm/kg Calcium (8.5-10.1) mg/dL Phosphorus (2.6-4.7) mg/dL Magnesium (1.8-2.4) mg/dl Iron (65-175) ug/dL TIBC (100-400) ug/dL % Saturation (20-55) % Transferrin (202-364) mg/dL Ferritin (26-388) ng/ml Total Bilirubin (0.2-1.0) mg/dL AST (15-37) U/L ALT (16-63) U/L Alkaline Phosphatase (46-116) U/L Lactate Dehydrogenase (85-227) U/L Troponin I (0.00-0.056) ng/mL C-Reactive Protein (<1.0) mg/dL NT-Pro-B Natriuret Pep (0-125) pg/mL Total Protein (6.4-8.2) g/dl Albumin (3.4-5.0) g/dl Globulin gm/dL Albumin/Globulin Ratio (1-2) Lipase (73-393) U/L Urine Opiates Screen (JDWWXS=409) Ur Buprenorphine Scrn (CUTOFF=10) Ur Oxycodone Screen (OHN7BW=142) Urine Methadone Screen (XKW9XE=565) Ur Propoxyphene Screen (QPZIDT=352) Ur Barbiturates Screen (SSSWCJ=988) Ur Tricyclics Screen (XKCSAL=762) Ur Phencyclidine Scrn (CUTOFF=25) Ur Amphetamine Screen (BLLKXT=440) U Methamphetamines Scrn (HXVZPI=451) U Benzodiazepines Scrn (WJKFWI=661) U Cocaine Metab Screen (TYVZOS=263) U Marijuana (THC) Screen (CUTOFF=50) Ethyl Alcohol (0.00) gm% Ketones (0.0-0.3) mM SARS-CoV-2 RNA (KATARINA) Positive H (NEGATIVE) 03/06/20 03/06/20 03/06/20 Range/Units 15:40 15:40 15:40 WBC (4.23-9.07) K/mm3 RBC (4.63-6.08) M/mm3 Hgb (13.7-17.5) gm/dl Hct (40.1-51.0) % MCV (79.0-92.2) fl MCH (25.7-32.2) pg MCHC (32.2-35.5) g/dl RDW Std Deviation (35.1-43.9) fL Plt Count (163-337) K/mm3 MPV (9.4-12.3) fl Neut % (Auto) (34.0-67.9) % Lymph % (Auto) (21.8-53.1) % [place] % (Auto) (5.3-12.2) % Eos % (Auto) (0.8-7.0) Baso % (Auto) (0.1-1.2) % Neut # (Auto) (1.78-5.38) K/mm3 Lymph # (Auto) (1.32-3.57) K/mm3 [place] # (Auto) (0.30-0.82) K/mm3 Eos # (Auto) (0.04-0.54) K/mm3 Baso # (Auto) (0.01-0.08) K/mm3 Manual Slide Review PT (9.7-12.0) SECONDS INR APTT (21.7-31.4) SECONDS Puncture Site ABG pH (7.35-7.45) ABG pCO2 (35.0-45.0) mmHg ABG pO2 (80.0-100.0) mmHg ABG HCO3 (22.0-26.0) meq/L ABG O2 Saturation (96.0-97.0) % ABG Base Excess (-2-2.0) Brandon Test A-a Gradient mmHg O2 Delivery Device Oxygen Flow Rate FiO2 (21.00-100.00) % Sodium (136-145) mEq/L Potassium (3.5-5.1) mEq/L Chloride (98-107) mEq/L Carbon Dioxide (21-32) mEq/L Anion Gap (5-15) BUN (7-18) mg/dL Creatinine (0.7-1.3) mg/dL Est Cr Clr Drug Dosing mL/min Estimated GFR (MDRD) (>60) mL/min BUN/Creatinine Ratio (14-18) Glucose 417 H (74-106) mg/dL POC Glucose (70-105) mg/dL Hemoglobin A1c (4.50-6.20) % Serum Osmolality (280-300) mosm/kg Calcium (8.5-10.1) mg/dL Phosphorus (2.6-4.7) mg/dL Magnesium (1.8-2.4) mg/dl Iron (65-175) ug/dL TIBC (100-400) ug/dL % Saturation (20-55) % Transferrin (202-364) mg/dL Ferritin 841 H (26-388) ng/ml Total Bilirubin (0.2-1.0) mg/dL AST (15-37) U/L ALT (16-63) U/L Alkaline Phosphatase (46-116) U/L Lactate Dehydrogenase 342 H (85-227) U/L Troponin I (0.00-0.056) ng/mL C-Reactive Protein (<1.0) mg/dL NT-Pro-B Natriuret Pep (0-125) pg/mL Total Protein (6.4-8.2) g/dl Albumin (3.4-5.0) g/dl Globulin gm/dL Albumin/Globulin Ratio (1-2) Lipase (73-393) U/L Urine Opiates Screen (RMHECW=802) Ur Buprenorphine Scrn (CUTOFF=10) Ur Oxycodone Screen (YMU5NQ=252) Urine Methadone Screen (EKL3KN=853) Ur Propoxyphene Screen (ASAAOY=633) Ur Barbiturates Screen (OPRGJK=727) Ur Tricyclics Screen (MJHVCC=192) Ur Phencyclidine Scrn (CUTOFF=25) Ur Amphetamine Screen (YASZPI=012) U Methamphetamines Scrn (LUEQAC=436) U Benzodiazepines Scrn (OASOTL=639) U Cocaine Metab Screen (YJNLTT=480) U Marijuana (THC) Screen (CUTOFF=50) Ethyl Alcohol (0.00) gm% Ketones (0.0-0.3) mM SARS-CoV-2 RNA (KATARINA) (NEGATIVE) 03/06/20 03/06/20 03/06/20 Range/Units 16:40 17:28 17:33 WBC (4.23-9.07) K/mm3 RBC (4.63-6.08) M/mm3 Hgb (13.7-17.5) gm/dl Hct (40.1-51.0) % MCV (79.0-92.2) fl MCH (25.7-32.2) pg MCHC (32.2-35.5) g/dl RDW Std Deviation (35.1-43.9) fL Plt Count (163-337) K/mm3 MPV (9.4-12.3) fl Neut % (Auto) (34.0-67.9) % Lymph % (Auto) (21.8-53.1) % [place] % (Auto) (5.3-12.2) % Eos % (Auto) (0.8-7.0) Baso % (Auto) (0.1-1.2) % Neut # (Auto) (1.78-5.38) K/mm3 Lymph # (Auto) (1.32-3.57) K/mm3 [place] # (Auto) (0.30-0.82) K/mm3 Eos # (Auto) (0.04-0.54) K/mm3 Baso # (Auto) (0.01-0.08) K/mm3 Manual Slide Review PT (9.7-12.0) SECONDS INR APTT (21.7-31.4) SECONDS Puncture Site ABG pH (7.35-7.45) ABG pCO2 (35.0-45.0) mmHg ABG pO2 (80.0-100.0) mmHg ABG HCO3 (22.0-26.0) meq/L ABG O2 Saturation (96.0-97.0) % ABG Base Excess (-2-2.0) Brandon Test A-a Gradient mmHg O2 Delivery Device Oxygen Flow Rate FiO2 (21.00-100.00) % Sodium (136-145) mEq/L Potassium (3.5-5.1) mEq/L Chloride (98-107) mEq/L Carbon Dioxide (21-32) mEq/L Anion Gap (5-15) BUN (7-18) mg/dL Creatinine (0.7-1.3) mg/dL Est Cr Clr Drug Dosing mL/min Estimated GFR (MDRD) (>60) mL/min BUN/Creatinine Ratio (14-18) Glucose 396 H (74-106) mg/dL POC Glucose 319 H (70-105) mg/dL Hemoglobin A1c (4.50-6.20) % Serum Osmolality (280-300) mosm/kg Calcium (8.5-10.1) mg/dL Phosphorus (2.6-4.7) mg/dL Magnesium (1.8-2.4) mg/dl Iron (65-175) ug/dL TIBC (100-400) ug/dL % Saturation (20-55) % Transferrin (202-364) mg/dL Ferritin (26-388) ng/ml Total Bilirubin (0.2-1.0) mg/dL AST (15-37) U/L ALT (16-63) U/L Alkaline Phosphatase (46-116) U/L Lactate Dehydrogenase (85-227) U/L Troponin I (0.00-0.056) ng/mL C-Reactive Protein (<1.0) mg/dL NT-Pro-B Natriuret Pep (0-125) pg/mL Total Protein (6.4-8.2) g/dl Albumin (3.4-5.0) g/dl Globulin gm/dL Albumin/Globulin Ratio (1-2) Lipase (73-393) U/L Urine Opiates Screen Negative (BOIQFD=117) Ur Buprenorphine Scrn Negative (CUTOFF=10) Ur Oxycodone Screen Negative (ZKP3UW=489) Urine Methadone Screen Negative (CZL5ET=790) Ur Propoxyphene Screen Negative (UJTCFC=022) Ur Barbiturates Screen Negative (XFETIG=938) Ur Tricyclics Screen Negative (LYUSPS=346) Ur Phencyclidine Scrn Negative (CUTOFF=25) Ur Amphetamine Screen Negative (TAXDKI=280) U Methamphetamines Scrn Negative (VXRCHS=686) U Benzodiazepines Scrn Negative (WPUNAC=735) U Cocaine Metab Screen Negative (QVWTHE=175) U Marijuana (THC) Screen Negative (CUTOFF=50) Ethyl Alcohol (0.00) gm% Ketones (0.0-0.3) mM SARS-CoV-2 RNA (KATARINA) (NEGATIVE) 03/06/20 03/06/20 03/06/20 Range/Units 17:40 18:28 20:42 WBC (4.23-9.07) K/mm3 RBC (4.63-6.08) M/mm3 Hgb (13.7-17.5) gm/dl Hct (40.1-51.0) % MCV (79.0-92.2) fl MCH (25.7-32.2) pg MCHC (32.2-35.5) g/dl RDW Std Deviation (35.1-43.9) fL Plt Count (163-337) K/mm3 MPV (9.4-12.3) fl Neut % (Auto) (34.0-67.9) % Lymph % (Auto) (21.8-53.1) % [place] % (Auto) (5.3-12.2) % Eos % (Auto) (0.8-7.0) Baso % (Auto) (0.1-1.2) % Neut # (Auto) (1.78-5.38) K/mm3 Lymph # (Auto) (1.32-3.57) K/mm3 [place] # (Auto) (0.30-0.82) K/mm3 Eos # (Auto) (0.04-0.54) K/mm3 Baso # (Auto) (0.01-0.08) K/mm3 Manual Slide Review PT (9.7-12.0) SECONDS INR APTT (21.7-31.4) SECONDS Puncture Site ABG pH (7.35-7.45) ABG pCO2 (35.0-45.0) mmHg ABG pO2 (80.0-100.0) mmHg ABG HCO3 (22.0-26.0) meq/L ABG O2 Saturation (96.0-97.0) % ABG Base Excess (-2-2.0) Brandon Test A-a Gradient mmHg O2 Delivery Device Oxygen Flow Rate FiO2 (21.00-100.00) % Sodium 135 L (136-145) mEq/L Potassium 3.5 (3.5-5.1) mEq/L Chloride 98 (98-107) mEq/L Carbon Dioxide 11 L (21-32) mEq/L Anion Gap 29.5 H (5-15) BUN 8 (7-18) mg/dL Creatinine 1.4 H (0.7-1.3) mg/dL Est Cr Clr Drug Dosing 106.07 mL/min Estimated GFR (MDRD) > 60 (>60) mL/min BUN/Creatinine Ratio 5.7 L (14-18) Glucose 387 H (74-106) mg/dL POC Glucose 339 H 330 H (70-105) mg/dL Hemoglobin A1c (4.50-6.20) % Serum Osmolality (280-300) mosm/kg Calcium 9.4 (8.5-10.1) mg/dL Phosphorus (2.6-4.7) mg/dL Magnesium (1.8-2.4) mg/dl Iron (65-175) ug/dL TIBC (100-400) ug/dL % Saturation (20-55) % Transferrin (202-364) mg/dL Ferritin (26-388) ng/ml Total Bilirubin (0.2-1.0) mg/dL AST (15-37) U/L ALT (16-63) U/L Alkaline Phosphatase (46-116) U/L Lactate Dehydrogenase (85-227) U/L Troponin I (0.00-0.056) ng/mL C-Reactive Protein (<1.0) mg/dL NT-Pro-B Natriuret Pep (0-125) pg/mL Total Protein (6.4-8.2) g/dl Albumin (3.4-5.0) g/dl Globulin gm/dL Albumin/Globulin Ratio (1-2) Lipase (73-393) U/L Urine Opiates Screen (NNUYWP=557) Ur Buprenorphine Scrn (CUTOFF=10) Ur Oxycodone Screen (WHO8IU=131) Urine Methadone Screen (QAO2YQ=223) Ur Propoxyphene Screen (SGITUE=806) Ur Barbiturates Screen (RFNQAO=549) Ur Tricyclics Screen (DFJDSI=889) Ur Phencyclidine Scrn (CUTOFF=25) Ur Amphetamine Screen (KKSGGP=754) U Methamphetamines Scrn (BKNDRG=489) U Benzodiazepines Scrn (AFKTSP=518) U Cocaine Metab Screen (RXIYIT=044) U Marijuana (THC) Screen (CUTOFF=50) Ethyl Alcohol (0.00) gm% Ketones (0.0-0.3) mM SARS-CoV-2 RNA (KATARINA) (NEGATIVE) 03/06/20 03/06/20 03/06/20 Range/Units 20:58 21:59 22:20 WBC (4.23-9.07) K/mm3 RBC (4.63-6.08) M/mm3 Hgb (13.7-17.5) gm/dl Hct (40.1-51.0) % MCV (79.0-92.2) fl MCH (25.7-32.2) pg MCHC (32.2-35.5) g/dl RDW Std Deviation (35.1-43.9) fL Plt Count (163-337) K/mm3 MPV (9.4-12.3) fl Neut % (Auto) (34.0-67.9) % Lymph % (Auto) (21.8-53.1) % [place] % (Auto) (5.3-12.2) % Eos % (Auto) (0.8-7.0) Baso % (Auto) (0.1-1.2) % Neut # (Auto) (1.78-5.38) K/mm3 Lymph # (Auto) (1.32-3.57) K/mm3 [place] # (Auto) (0.30-0.82) K/mm3 Eos # (Auto) (0.04-0.54) K/mm3 Baso # (Auto) (0.01-0.08) K/mm3 Manual Slide Review PT (9.7-12.0) SECONDS INR APTT (21.7-31.4) SECONDS Puncture Site ABG pH (7.35-7.45) ABG pCO2 (35.0-45.0) mmHg ABG pO2 (80.0-100.0) mmHg ABG HCO3 (22.0-26.0) meq/L ABG O2 Saturation (96.0-97.0) % ABG Base Excess (-2-2.0) Brandon Test A-a Gradient mmHg O2 Delivery Device Oxygen Flow Rate FiO2 (21.00-100.00) % Sodium 138 (136-145) mEq/L Potassium 3.0 L (3.5-5.1) mEq/L Chloride 100 (98-107) mEq/L Carbon Dioxide 8 L* (21-32) mEq/L Anion Gap 33.0 H (5-15) BUN 9 (7-18) mg/dL Creatinine 1.3 (0.7-1.3) mg/dL Est Cr Clr Drug Dosing 114.23 mL/min Estimated GFR (MDRD) > 60 (>60) mL/min BUN/Creatinine Ratio 6.9 L (14-18) Glucose 311 H (74-106) mg/dL POC Glucose 381 H 384 H (70-105) mg/dL Hemoglobin A1c (4.50-6.20) % Serum Osmolality (280-300) mosm/kg Calcium 9.1 (8.5-10.1) mg/dL Phosphorus (2.6-4.7) mg/dL Magnesium (1.8-2.4) mg/dl Iron (65-175) ug/dL TIBC (100-400) ug/dL % Saturation (20-55) % Transferrin (202-364) mg/dL Ferritin (26-388) ng/ml Total Bilirubin (0.2-1.0) mg/dL AST (15-37) U/L ALT (16-63) U/L Alkaline Phosphatase (46-116) U/L Lactate Dehydrogenase (85-227) U/L Troponin I (0.00-0.056) ng/mL C-Reactive Protein (<1.0) mg/dL NT-Pro-B Natriuret Pep (0-125) pg/mL Total Protein (6.4-8.2) g/dl Albumin (3.4-5.0) g/dl Globulin gm/dL Albumin/Globulin Ratio (1-2) Lipase (73-393) U/L Urine Opiates Screen (QKMIYK=952) Ur Buprenorphine Scrn (CUTOFF=10) Ur Oxycodone Screen (FTU9LK=652) Urine Methadone Screen (WUZ3DK=569) Ur Propoxyphene Screen (PAXBMN=133) Ur Barbiturates Screen (TFGPRN=036) Ur Tricyclics Screen (XCECHP=243) Ur Phencyclidine Scrn (CUTOFF=25) Ur Amphetamine Screen (PGIBAD=373) U Methamphetamines Scrn (JQQADZ=234) U Benzodiazepines Scrn (HCNIXU=270) U Cocaine Metab Screen (CBUNJJ=156) U Marijuana (THC) Screen (CUTOFF=50) Ethyl Alcohol (0.00) gm% Ketones (0.0-0.3) mM SARS-CoV-2 RNA (KATARINA) (NEGATIVE) 03/06/20 03/06/20 03/07/20 Range/Units 23:04 23:55 01:07 WBC (4.23-9.07) K/mm3 RBC (4.63-6.08) M/mm3 Hgb (13.7-17.5) gm/dl Hct (40.1-51.0) % MCV (79.0-92.2) fl MCH (25.7-32.2) pg MCHC (32.2-35.5) g/dl RDW Std Deviation (35.1-43.9) fL Plt Count (163-337) K/mm3 MPV (9.4-12.3) fl Neut % (Auto) (34.0-67.9) % Lymph % (Auto) (21.8-53.1) % [place] % (Auto) (5.3-12.2) % Eos % (Auto) (0.8-7.0) Baso % (Auto) (0.1-1.2) % Neut # (Auto) (1.78-5.38) K/mm3 Lymph # (Auto) (1.32-3.57) K/mm3 [place] # (Auto) (0.30-0.82) K/mm3 Eos # (Auto) (0.04-0.54) K/mm3 Baso # (Auto) (0.01-0.08) K/mm3 Manual Slide Review PT (9.7-12.0) SECONDS INR APTT (21.7-31.4) SECONDS Puncture Site ABG pH (7.35-7.45) ABG pCO2 (35.0-45.0) mmHg ABG pO2 (80.0-100.0) mmHg ABG HCO3 (22.0-26.0) meq/L ABG O2 Saturation (96.0-97.0) % ABG Base Excess (-2-2.0) Brandon Test A-a Gradient mmHg O2 Delivery Device Oxygen Flow Rate FiO2 (21.00-100.00) % Sodium (136-145) mEq/L Potassium (3.5-5.1) mEq/L Chloride (98-107) mEq/L Carbon Dioxide (21-32) mEq/L Anion Gap (5-15) BUN (7-18) mg/dL Creatinine (0.7-1.3) mg/dL Est Cr Clr Drug Dosing mL/min Estimated GFR (MDRD) (>60) mL/min BUN/Creatinine Ratio (14-18) Glucose (74-106) mg/dL POC Glucose 270 H 253 H 203 H (70-105) mg/dL Hemoglobin A1c (4.50-6.20) % Serum Osmolality (280-300) mosm/kg Calcium (8.5-10.1) mg/dL Phosphorus (2.6-4.7) mg/dL Magnesium (1.8-2.4) mg/dl Iron (65-175) ug/dL TIBC (100-400) ug/dL % Saturation (20-55) % Transferrin (202-364) mg/dL Ferritin (26-388) ng/ml Total Bilirubin (0.2-1.0) mg/dL AST (15-37) U/L ALT (16-63) U/L Alkaline Phosphatase (46-116) U/L Lactate Dehydrogenase (85-227) U/L Troponin I (0.00-0.056) ng/mL C-Reactive Protein (<1.0) mg/dL NT-Pro-B Natriuret Pep (0-125) pg/mL Total Protein (6.4-8.2) g/dl Albumin (3.4-5.0) g/dl Globulin gm/dL Albumin/Globulin Ratio (1-2) Lipase (73-393) U/L Urine Opiates Screen (QCCDMM=641) Ur Buprenorphine Scrn (CUTOFF=10) Ur Oxycodone Screen (IKT8LK=305) Urine Methadone Screen (TLO9YJ=629) Ur Propoxyphene Screen (XSKMJO=627) Ur Barbiturates Screen (GJMVAR=610) Ur Tricyclics Screen (RNFLOV=897) Ur Phencyclidine Scrn (CUTOFF=25) Ur Amphetamine Screen (PZJJFR=422) U Methamphetamines Scrn (QFWJCU=765) U Benzodiazepines Scrn (GJFDTV=847) U Cocaine Metab Screen (GRJYYE=446) U Marijuana (THC) Screen (CUTOFF=50) Ethyl Alcohol (0.00) gm% Ketones (0.0-0.3) mM SARS-CoV-2 RNA (KATARINA) (NEGATIVE) 03/07/20 03/07/20 03/07/20 Range/Units 01:58 02:00 02:59 WBC (4.23-9.07) K/mm3 RBC (4.63-6.08) M/mm3 Hgb (13.7-17.5) gm/dl Hct (40.1-51.0) % MCV (79.0-92.2) fl MCH (25.7-32.2) pg MCHC (32.2-35.5) g/dl RDW Std Deviation (35.1-43.9) fL Plt Count (163-337) K/mm3 MPV (9.4-12.3) fl Neut % (Auto) (34.0-67.9) % Lymph % (Auto) (21.8-53.1) % [place] % (Auto) (5.3-12.2) % Eos % (Auto) (0.8-7.0) Baso % (Auto) (0.1-1.2) % Neut # (Auto) (1.78-5.38) K/mm3 Lymph # (Auto) (1.32-3.57) K/mm3 [place] # (Auto) (0.30-0.82) K/mm3 Eos # (Auto) (0.04-0.54) K/mm3 Baso # (Auto) (0.01-0.08) K/mm3 Manual Slide Review PT (9.7-12.0) SECONDS INR APTT (21.7-31.4) SECONDS Puncture Site ABG pH (7.35-7.45) ABG pCO2 (35.0-45.0) mmHg ABG pO2 (80.0-100.0) mmHg ABG HCO3 (22.0-26.0) meq/L ABG O2 Saturation (96.0-97.0) % ABG Base Excess (-2-2.0) Brandon Test A-a Gradient mmHg O2 Delivery Device Oxygen Flow Rate FiO2 (21.00-100.00) % Sodium 139 (136-145) mEq/L Potassium 3.2 L (3.5-5.1) mEq/L Chloride 103 (98-107) mEq/L Carbon Dioxide 13 L (21-32) mEq/L Anion Gap 26.2 H (5-15) BUN 8 (7-18) mg/dL Creatinine 1.3 (0.7-1.3) mg/dL Est Cr Clr Drug Dosing 114.23 mL/min Estimated GFR (MDRD) > 60 (>60) mL/min BUN/Creatinine Ratio 6.2 L (14-18) Glucose 217 H (74-106) mg/dL POC Glucose 195 H 198 H (70-105) mg/dL Hemoglobin A1c (4.50-6.20) % Serum Osmolality (280-300) mosm/kg Calcium 9.0 (8.5-10.1) mg/dL Phosphorus (2.6-4.7) mg/dL Magnesium (1.8-2.4) mg/dl Iron (65-175) ug/dL TIBC (100-400) ug/dL % Saturation (20-55) % Transferrin (202-364) mg/dL Ferritin (26-388) ng/ml Total Bilirubin (0.2-1.0) mg/dL AST (15-37) U/L ALT (16-63) U/L Alkaline Phosphatase (46-116) U/L Lactate Dehydrogenase (85-227) U/L Troponin I (0.00-0.056) ng/mL C-Reactive Protein (<1.0) mg/dL NT-Pro-B Natriuret Pep (0-125) pg/mL Total Protein (6.4-8.2) g/dl Albumin (3.4-5.0) g/dl Globulin gm/dL Albumin/Globulin Ratio (1-2) Lipase (73-393) U/L Urine Opiates Screen (SSLDZB=099) Ur Buprenorphine Scrn (CUTOFF=10) Ur Oxycodone Screen (KDM8KP=888) Urine Methadone Screen (CXG8PB=842) Ur Propoxyphene Screen (YDHKAV=661) Ur Barbiturates Screen (MKKGCI=497) Ur Tricyclics Screen (WLUUPD=975) Ur Phencyclidine Scrn (CUTOFF=25) Ur Amphetamine Screen (GSRRBN=998) U Methamphetamines Scrn (MJVIRN=684) U Benzodiazepines Scrn (PNYGOG=486) U Cocaine Metab Screen (JDUIXE=985) U Marijuana (THC) Screen (CUTOFF=50) Ethyl Alcohol (0.00) gm% Ketones (0.0-0.3) mM SARS-CoV-2 RNA (KATARINA) (NEGATIVE) 03/07/20 03/07/20 03/07/20 Range/Units 04:02 05:06 05:46 WBC (4.23-9.07) K/mm3 RBC (4.63-6.08) M/mm3 Hgb (13.7-17.5) gm/dl Hct (40.1-51.0) % MCV (79.0-92.2) fl MCH (25.7-32.2) pg MCHC (32.2-35.5) g/dl RDW Std Deviation (35.1-43.9) fL Plt Count (163-337) K/mm3 MPV (9.4-12.3) fl Neut % (Auto) (34.0-67.9) % Lymph % (Auto) (21.8-53.1) % [place] % (Auto) (5.3-12.2) % Eos % (Auto) (0.8-7.0) Baso % (Auto) (0.1-1.2) % Neut # (Auto) (1.78-5.38) K/mm3 Lymph # (Auto) (1.32-3.57) K/mm3 [place] # (Auto) (0.30-0.82) K/mm3 Eos # (Auto) (0.04-0.54) K/mm3 Baso # (Auto) (0.01-0.08) K/mm3 Manual Slide Review PT (9.7-12.0) SECONDS INR APTT (21.7-31.4) SECONDS Puncture Site ABG pH (7.35-7.45) ABG pCO2 (35.0-45.0) mmHg ABG pO2 (80.0-100.0) mmHg ABG HCO3 (22.0-26.0) meq/L ABG O2 Saturation (96.0-97.0) % ABG Base Excess (-2-2.0) Brandon Test A-a Gradient mmHg O2 Delivery Device Oxygen Flow Rate FiO2 (21.00-100.00) % Sodium (136-145) mEq/L Potassium (3.5-5.1) mEq/L Chloride (98-107) mEq/L Carbon Dioxide (21-32) mEq/L Anion Gap (5-15) BUN (7-18) mg/dL Creatinine (0.7-1.3) mg/dL Est Cr Clr Drug Dosing mL/min Estimated GFR (MDRD) (>60) mL/min BUN/Creatinine Ratio (14-18) Glucose (74-106) mg/dL POC Glucose 194 H 212 H (70-105) mg/dL Hemoglobin A1c (4.50-6.20) % Serum Osmolality (280-300) mosm/kg Calcium (8.5-10.1) mg/dL Phosphorus 1.1 L (2.6-4.7) mg/dL Magnesium 1.9 (1.8-2.4) mg/dl Iron (65-175) ug/dL TIBC (100-400) ug/dL % Saturation (20-55) % Transferrin (202-364) mg/dL Ferritin (26-388) ng/ml Total Bilirubin (0.2-1.0) mg/dL AST (15-37) U/L ALT (16-63) U/L Alkaline Phosphatase (46-116) U/L Lactate Dehydrogenase (85-227) U/L Troponin I (0.00-0.056) ng/mL C-Reactive Protein 24.3 H* (<1.0) mg/dL NT-Pro-B Natriuret Pep (0-125) pg/mL Total Protein (6.4-8.2) g/dl Albumin (3.4-5.0) g/dl Globulin gm/dL Albumin/Globulin Ratio (1-2) Lipase (73-393) U/L Urine Opiates Screen (EILRCI=475) Ur Buprenorphine Scrn (CUTOFF=10) Ur Oxycodone Screen (THT3EQ=218) Urine Methadone Screen (EIR6KM=601) Ur Propoxyphene Screen (CAZLTX=727) Ur Barbiturates Screen (WRHRZD=549) Ur Tricyclics Screen (BRADUQ=701) Ur Phencyclidine Scrn (CUTOFF=25) Ur Amphetamine Screen (COYYUM=399) U Methamphetamines Scrn (GOHOGZ=814) U Benzodiazepines Scrn (JPXWTK=615) U Cocaine Metab Screen (PDTATE=432) U Marijuana (THC) Screen (CUTOFF=50) Ethyl Alcohol (0.00) gm% Ketones (0.0-0.3) mM SARS-CoV-2 RNA (KATARINA) (NEGATIVE) 03/07/20 03/07/20 03/07/20 Range/Units 05:46 06:06 07:02 WBC (4.23-9.07) K/mm3 RBC (4.63-6.08) M/mm3 Hgb (13.7-17.5) gm/dl Hct (40.1-51.0) % MCV (79.0-92.2) fl MCH (25.7-32.2) pg MCHC (32.2-35.5) g/dl RDW Std Deviation (35.1-43.9) fL Plt Count (163-337) K/mm3 MPV (9.4-12.3) fl Neut % (Auto) (34.0-67.9) % Lymph % (Auto) (21.8-53.1) % [place] % (Auto) (5.3-12.2) % Eos % (Auto) (0.8-7.0) Baso % (Auto) (0.1-1.2) % Neut # (Auto) (1.78-5.38) K/mm3 Lymph # (Auto) (1.32-3.57) K/mm3 [place] # (Auto) (0.30-0.82) K/mm3 Eos # (Auto) (0.04-0.54) K/mm3 Baso # (Auto) (0.01-0.08) K/mm3 Manual Slide Review PT (9.7-12.0) SECONDS INR APTT (21.7-31.4) SECONDS Puncture Site ABG pH (7.35-7.45) ABG pCO2 (35.0-45.0) mmHg ABG pO2 (80.0-100.0) mmHg ABG HCO3 (22.0-26.0) meq/L ABG O2 Saturation (96.0-97.0) % ABG Base Excess (-2-2.0) Brandon Test A-a Gradient mmHg O2 Delivery Device Oxygen Flow Rate FiO2 (21.00-100.00) % Sodium 138 (136-145) mEq/L Potassium 3.2 L (3.5-5.1) mEq/L Chloride 103 (98-107) mEq/L Carbon Dioxide 16 L (21-32) mEq/L Anion Gap 22.2 H (5-15) BUN 9 (7-18) mg/dL Creatinine 1.3 (0.7-1.3) mg/dL Est Cr Clr Drug Dosing 114.23 mL/min Estimated GFR (MDRD) > 60 (>60) mL/min BUN/Creatinine Ratio 6.9 L (14-18) Glucose 202 H (74-106) mg/dL POC Glucose 204 H 226 H (70-105) mg/dL Hemoglobin A1c (4.50-6.20) % Serum Osmolality (280-300) mosm/kg Calcium 9.1 (8.5-10.1) mg/dL Phosphorus (2.6-4.7) mg/dL Magnesium (1.8-2.4) mg/dl Iron (65-175) ug/dL TIBC (100-400) ug/dL % Saturation (20-55) % Transferrin (202-364) mg/dL Ferritin (26-388) ng/ml Total Bilirubin (0.2-1.0) mg/dL AST (15-37) U/L ALT (16-63) U/L Alkaline Phosphatase (46-116) U/L Lactate Dehydrogenase (85-227) U/L Troponin I (0.00-0.056) ng/mL C-Reactive Protein (<1.0) mg/dL NT-Pro-B Natriuret Pep (0-125) pg/mL Total Protein (6.4-8.2) g/dl Albumin (3.4-5.0) g/dl Globulin gm/dL Albumin/Globulin Ratio (1-2) Lipase (73-393) U/L Urine Opiates Screen (ZGGTQG=325) Ur Buprenorphine Scrn (CUTOFF=10) Ur Oxycodone Screen (SYQ1HV=630) Urine Methadone Screen (RCJ4WY=494) Ur Propoxyphene Screen (BTDWOJ=756) Ur Barbiturates Screen (SKAEOA=685) Ur Tricyclics Screen (DSBZDA=019) Ur Phencyclidine Scrn (CUTOFF=25) Ur Amphetamine Screen (OFQYXQ=422) U Methamphetamines Scrn (RITHNX=751) U Benzodiazepines Scrn (PVXVJO=500) U Cocaine Metab Screen (YCBJZD=086) U Marijuana (THC) Screen (CUTOFF=50) Ethyl Alcohol (0.00) gm% Ketones (0.0-0.3) mM SARS-CoV-2 RNA (KATARINA) (NEGATIVE) Med Orders - Current: Current Medications Hydrocodone Bitart/Acetaminophen ([place] 325-5 Mg) 1 tab PO Q4H PRN PRN Reason: Pain (moderate 4-6) Albuterol/Ipratropium (Duoneb 3.0-0.5 Mg/3 Ml) 3 ml NEB Q4H PRN PRN Reason: Shortness Of Breath/wheezing Dexamethasone (Dexamethasone) 6 mg PO DAILY [facility] Guaifenesin/Phenylephrine HCl (Robitussin Dm) 10 ml PO Q4H PRN PRN Reason: Cough Heparin Sodium (Porcine) (Heparin Sodium) 5,000 units SUBCUT Q8H [facility] Last Admin: 03/07/20 01:32 Dose: 5,000 units Documented by: Hydromorphone HCl (Dilaudid) 0.5 mg IVPUSH Q2H PRN PRN Reason: Pain (severe 7-10) Lactated Ringer's (Ringers, Lactated) 1,000 mls @ 999 mls/hr IV ASDIRECTED [facility] Last Admin: 03/06/20 15:48 Dose: 999 mls/hr Documented by: Lactated Ringer's (Ringers, Lactated) 1,000 mls @ 999 mls/hr IV ASDIRECTED [facility] Last Admin: 03/06/20 16:57 Dose: 999 mls/hr Documented by: Promethazine HCl 6.25 mg/ (Sodium Chloride) 50.25 mls @ 100 mls/hr IV Q6H PRN PRN Reason: Nausea/Vomiting Insulin Human Regular 100 unit (/ Sodium Chloride) 100 mls @ 707.604 mls/hr IV TITRATE [facility]; Protocol Ceftriaxone Sodium 1 gm/ (Sodium Chloride) 100 mls @ 200 mls/hr IV Q24H [facility] Stop: 03/11/20 18:31 Last Admin: 03/06/20 18:48 Dose: 200 mls/hr Documented by: Azithromycin 500 mg/ Sodium (Chloride) 250 mls @ 250 mls/hr IV Q24H [facility] Last Admin: 03/06/20 21:10 Dose: 250 mls/hr Documented by: Sodium Bicarbonate 75 meq/ (Sodium Chloride) 1,075 mls @ 125 mls/hr IV ASDIRECTED [facility] Last Admin: 03/06/20 21:45 Dose: 125 mls/hr Documented by: Dextrose/Water (Dextrose 5% In Water) 1,000 mls @ 150 mls/hr IV ASDIRECTED [facility] Last Infusion: 03/07/20 06:38 Dose: 180 mls/hr Documented by: Ondansetron HCl (Zofran) 4 mg IV Q6H PRN PRN Reason: Nausea/Vomiting Discontinued Medications Dexamethasone (Decadron) 6 mg IVPUSH ONETIME ONE Stop: 03/06/20 18:01 Last Admin: 03/06/20 18:15 Dose: 6 mg Documented by: Hydromorphone HCl (Dilaudid) 1 mg IVPUSH ONETIME ONE Stop: 03/06/20 13:30 Last Admin: 03/06/20 13:55 Dose: 1 mg Documented by: Potassium Chloride 10 meq/ (Premix) 100 mls @ 100 mls/hr IV Q1H [facility] Stop: 03/06/20 19:14 Last Admin: 03/06/20 16:55 Dose: Not Given Documented by: Insulin Human Regular 100 unit (/ Sodium Chloride) 100 mls @ 3 mls/hr IV TITRATE [facility]; Protocol Last Titration: 03/07/20 06:37 Dose: 10 units/hr, 10 mls/hr Documented by: Bamlanivimab 700 mg/ Sodium (Chloride) 200 mls @ 200 mls/hr IV ONETIME ONE; Protocol Stop: 03/06/20 16:00 Last Admin: 03/06/20 16:51 Dose: 200 mls/hr Documented by: Potassium Chloride 10 meq/ (Premix) 100 mls @ 100 mls/hr IV Q1H [facility] Stop: 03/06/20 21:59 Last Admin: 03/07/20 01:30 Dose: 50 mls/hr Documented by: Insulin Glargine (Lantus) 25 unit SUBCUT ONETIME ONE Stop: 03/06/20 18:46 Last Admin: 03/06/20 22:05 Dose: Not Given Documented by: Insulin Glargine (Lantus) 25 unit SUBCUT ONETIME ONE Stop: 03/06/20 21:20 Last Admin: 03/06/20 21:38 Dose: 25 units Documented by: Insulin Human Regular (Humulin R) 3 unit IV ONETIME ONE Stop: 03/06/20 13:25 Last Admin: 03/06/20 14:01 Dose: 3 unit Documented by: Metoclopramide HCl (Reglan) 10 mg IVPUSH ONETIME ONE Stop: 03/06/20 13:30 Last Admin: 03/06/20 13:56 Dose: 10 mg Documented by: Potassium Chloride (Klor-Con M20) 60 meq PO ONETIME ONE Stop: 03/07/20 06:39 Last Admin: 03/07/20 06:50 Dose: 60 meq Documented by: - Exam Quality Assessment: No: Supplemental Oxygen General: Alert, Oriented, Cooperative, No Acute Distress HEENT: Pupils Equal, Pupils Reactive, EOMI, Mucous Membr. Moist/[place] Neck: Supple Lungs: Clear to Auscultation, Normal Respiratory Effort Cardiovascular: Regular Rate, Regular Rhythm GI/Abdominal Exam: Normal Bowel Sounds, Soft, Non-Tender, No Organomegaly, No Distention, No Abnormal Bruit, No Mass (Male) Exam: Deferred Back Exam: Normal Inspection, Full Range of Motion Extremities: Normal Inspection, Normal Range of Motion, Non-Tender, No Pedal Edema, Normal Capillary Refill Peripheral Pulses: 2+: Dorsalis Pedis (L), Dorsalis Pedis (R) Skin: Warm, Dry, Intact Neurological: No New Focal Deficit Psy/Mental Status: Alert, Normal Affect, Normal Mood Sepsis Event Note - Evaluation Sepsis Screening Result: No Definite Risk - Focused Exam Vital Signs: Vital Signs Temp Pulse Resp BP Pulse Ox Pulse Ox 03/07/20 07:00 96 96 03/07/20 06:00 94 94 L 03/07/20 05:00 92 94 L 03/07/20 04:00 36.5 C 18 122/75 95 03/07/20 03:00 99 95 03/07/20 02:00 106 H 97 03/07/20 00:01 104 H 95 03/07/20 00:00 36.3 C 18 106/59 L 94 L 03/06/20 23:41 117 H 97 03/06/20 23:30 146/90 H 96 03/06/20 21:00 36.2 C 24 H 156/91 H 95 95 - Problem List Review Problem List Initiated/Reviewed/Updated: Yes - My Orders Last 24 Hours: My Active Orders 03/06/20 Dinner Nothing per Oral Now Diet [DIET] 03/06/20 17:55 Patient Status [ADT] Routine Height and Weight [RC] 0400 Oxygen Therapy [RC] PRN Up ad Brittney [RC] ASDIRECTED VTE/DVT Education [RC] Vital Signs [RC] Q4HR Consult to Diabetic Nurse Specialist [CONS] Routine Consult to House Mother [CONS] Routine Respiratory Care Assess and Treatment [CONS] Routine CULTURE SPUTUM + SMEAR [RM] Stat Acetaminophen/HYDROcodone [[place] 325-5 MG] 1 tab PO Q4H PRN Albuterol/Ipratropium [DuoNeb 3.0-0.5 MG/3 ML] 3 ml NEB Q4H PRN HYDROmorphone [Dilaudid] 0.5 mg IVPUSH Q2H PRN Ondansetron [Zofran] 4 mg IV Q6H PRN Promethazine [Phenergan] 6.25 mg Sodium Chloride 0.9% [Normal Saline] 50 ml IV Q6H Resuscitation Status Routine 03/06/20 17:57 RT Aerosol Therapy [RC] ASDIRECTED 03/06/20 18:00 Heparin Sodium 5,000 units SUBCUT Q8H 03/06/20 18:03 Flutter Valve Therapy [RT Chest Physiotherapy] [RC] ASDIRECTED Incentive Spirometry [RT Incentive Spirometry] [RC] Q2HWA Dextromethorphan/guaiFENesin [Robitussin DM] 10 ml PO Q4H PRN 03/06/20 18:07 Accu Check [Blood Glucose Check, Bedside] [RC] Q1H 03/06/20 18:15 Insulin Regular, Human [HumuLIN R] 100 unit Sodium Chloride 0.9% [Normal Saline] 99 ml IV TITRATE 03/06/20 18:30 cefTRIAXone [Rocephin] 1 gm Sodium Chloride 0.9% [Normal Saline] 100 ml IV Q24H 03/06/20 19:00 Azithromycin [Zithromax] 500 mg Sodium Chloride 0.9% [Normal Saline (AdvBag)] 250 ml IV Q24H 03/06/20 19:30 Sodium Bicarbonate [Sodium Bicarbonate 8.4%] 75 meq Sodium Chloride 0.45% 1,000 ml IV ASDIRECTED 03/07/20 00:15 Dextrose 5% in Water 1,000 ml IV ASDIRECTED 03/07/20 05:11 Chest 1V Frontal [CR] AM 03/07/20 09:00 dexAMETHasone 6 mg PO DAILY 03/07/20 09:55 BASIC METABOLIC PANEL,BMP [CHEM] Q4H 03/07/20 13:55 BASIC METABOLIC PANEL,BMP [CHEM] Q4H 03/07/20 17:55 BASIC METABOLIC PANEL,BMP [CHEM] Q4H 03/07/20 21:55 BASIC METABOLIC PANEL,BMP [CHEM] Q4H 03/08/20 01:55 BASIC METABOLIC PANEL,BMP [CHEM] Q4H 03/08/20 05:11 C-REACTIVE PROTEIN [CHEM] AM MAGNESIUM [CHEM] AM PHOSPHORUS [CHEM] AM 03/09/20 05:11 C-REACTIVE PROTEIN [CHEM] AM MAGNESIUM [CHEM] AM PHOSPHORUS [CHEM] AM 03/10/20 05:11 MAGNESIUM [CHEM] AM PHOSPHORUS [CHEM] AM 03/11/20 05:11 MAGNESIUM [CHEM] AM PHOSPHORUS [CHEM] AM 03/12/20 05:11 MAGNESIUM [CHEM] AM PHOSPHORUS [CHEM] AM 03/13/20 05:11 MAGNESIUM [CHEM] AM PHOSPHORUS [CHEM] AM - Plan Plan:: Assessment: Acute: DKA, improving Covid-19 Infection, S/p Bamlanivimab infusion Vial pneumonitis/Atypical pneumonia Leukocytosis with WBC of 9.89 Hypokalemia, 2/2 extracellular loss Hypochloremia, resolved Increased AG Metabolic Acidosis, improving Elevated Ferritin Level Elevated LDH Elevated CRP Hypoalbuminemia Class I Obese Medical Non-compliance Resolved: Pseudohyponatremia, resolved Acute Kidney Injury, resolved Chronic: Asthma ASHD DM1 Eczema DM1 Obesity Plan: No respiratory issues Repeat CXR shows b/l patchy infiltrates Continue Dexamethazone 6 mg daily, known to shorten duration of stay Heparin 5000 units subQ Q8H Monitor inflammatory markers DKA protocol-my own regimen Continue IV rocephin and azithromycin to cover for atypical pneumonia Diabetic education post DKA Encourage IS/FV use and bedside pulmonary exercise Serial BMP until AG resolves 1913: AG pretty close to normal limits of normal. Patient has been begging to eat since this morning. His Bicarb has resolved. We will try crackers and soda. If he is able to tolerate, we will start ADA diet.
[2020-03-07] MEDS: Sodium Bicarbonate 75 MEQ in Sodium Chloride 0.45% 1,000 ML IV SCH ×2 (09:32→16:30)
[2020-03-07] MEDS ORDERED: 50% Dextrose in Water 50 ML Syringe IVPUSH PRN (13:03)
[2020-03-07] MEDS: SODIUM BICARBONATE IV SCH (16:29)
[2020-03-07] MEDS: SODIUM CHLORIDE IV SCH (16:29)
[2020-03-07] MEDS: [UNRECOGNIZED DRUG - OTHER] IV SCH (16:29)
[2020-03-07] MEDS: Phosphorus #1 250 MG Tab PO SCH ×3 (17:05→20:48)
[2020-03-07] MEDS: cefTRIAXone 1 GM in Sodium Chloride 0.9% 100 ML IV SCH (19:40)
[2020-03-07] MEDS: Azithromycin 500 MG in Sodium Chloride 0.9% 250 ML IV SCH (20:29)
[2020-03-07] MEDS: Insulin Glarg,Human.Rec.Analog 100 Unit/ML SUBCUT SCH (20:58)
[2020-03-07] MEDS: Insulin Lispro 100 Units/ML 3 ML Vial SUBCUT SCH (21:30)
[2020-03-08] MEDS: Sodium Bicarbonate 75 MEQ in Sodium Chloride 0.45% 1,000 ML IV SCH (00:38)
[2020-03-08] MEDS: SODIUM CHLORIDE IV SCH (00:38)
[2020-03-08] MEDS: [UNRECOGNIZED DRUG - OTHER] IV SCH (00:38)
[2020-03-08] MEDS: SODIUM BICARBONATE IV SCH (00:38)
[2020-03-08] MEDS: Heparin Sodium 5,000 Units/ML Vial SUBCUT SCH (03:03)
[2020-03-08] MEDS ORDERED: Potassium Chloride 20 MEQ Tab.ER PO ONE (06:05)
[2020-03-08] MEDS ORDERED: Magnesium Sulfate/Water 2 GM/50 ML BAG IV ONE (06:07)
[2020-03-08] MEDS: Insulin Lispro 100 Units/ML 3 ML Vial SUBCUT SCH ×5 (06:25→22:08)
[2020-03-08] MEDS ORDERED: Insulin Lispro 100 Units/ML 3 ML Vial SUBCUT SCH ×2 (07:00→19:00)
[2020-03-08] MEDS: Enoxaparin 40 MG/0.4 ML Syringe SUBCUT SCH (09:24)
[2020-03-08] MEDS: Phosphorus #1 250 MG Tab PO SCH ×3 (09:24→17:19)
[2020-03-08] MEDS: Magnesium Oxide 400 MG Tab PO SCH ×2 (09:24→21:13)
[2020-03-08] MEDS ORDERED: Insulin Lispro 100 Units/ML 3 ML Vial SUBCUT ONE (13:32)
[2020-03-08] MEDS: cefTRIAXone 1 GM in Sodium Chloride 0.9% 100 ML IV SCH (17:29)
--- NOTE | 2020-03-08 19:50 | PCM.PN ---
- General Info Date of Service: 03/08/20 Admission Dx/Problem (Free Text): Generalized Weakness Subjective Update: Patient is resting comfortably, appetite is good, and no acute distress or complaints. Functional Status: Reports: Pain Controlled - Review of Systems General: Reports: No Symptoms HEENT: Reports: No Symptoms Pulmonary: Reports: No Symptoms Cardiovascular: Reports: No Symptoms Gastrointestinal: Reports: No Symptoms Musculoskeletal: Reports: No Symptoms Psychiatric: Reports: No Symptoms - Patient Data Vitals - Most Recent: Last Vital Signs Temp 98.6 F 03/08/20 16:00 Pulse 73 03/08/20 06:00 Resp 19 03/08/20 16:00 BP 137/78 03/08/20 16:00 Pulse Ox 97 03/08/20 16:00 Weight - Most Recent: 253 lb I&O - Last 24 Hours: Intake & Output 03/08/20 03/08/20 03/08/20 06:59 14:59 22:59 Intake Total 940 120 120 Balance 940 120 120 Lab Results Last 24 Hours: Laboratory Results - last 24 hr 03/07/20 03/07/20 03/07/20 Range/Units 20:31 20:56 22:43 WBC (4.23-9.07) K/mm3 RBC (4.63-6.08) M/mm3 Hgb (13.7-17.5) gm/dl Hct (40.1-51.0) % MCV (79.0-92.2) fl MCH (25.7-32.2) pg MCHC (32.2-35.5) g/dl RDW Std Deviation (35.1-43.9) fL Plt Count (163-337) K/mm3 MPV (9.4-12.3) fl Neut % (Auto) (34.0-67.9) % Lymph % (Auto) (21.8-53.1) % [place] % (Auto) (5.3-12.2) % Eos % (Auto) (0.8-7.0) Baso % (Auto) (0.1-1.2) % Neut # (Auto) (1.78-5.38) K/mm3 Lymph # (Auto) (1.32-3.57) K/mm3 [place] # (Auto) (0.30-0.82) K/mm3 Eos # (Auto) (0.04-0.54) K/mm3 Baso # (Auto) (0.01-0.08) K/mm3 Manual Slide Review Sodium (136-145) mEq/L Potassium (3.5-5.1) mEq/L Chloride (98-107) mEq/L Carbon Dioxide (21-32) mEq/L Anion Gap (5-15) BUN (7-18) mg/dL Creatinine (0.7-1.3) mg/dL Est Cr Clr Drug Dosing mL/min Estimated GFR (MDRD) (>60) mL/min BUN/Creatinine Ratio (14-18) Glucose (74-106) mg/dL POC Glucose 226 H 249 H 288 H (70-105) mg/dL Calcium (8.5-10.1) mg/dL Phosphorus (2.6-4.7) mg/dL Magnesium (1.8-2.4) mg/dl C-Reactive Protein (<1.0) mg/dL 03/08/20 03/08/20 03/08/20 Range/Units 04:32 04:32 06:22 WBC 7.21 (4.23-9.07) K/mm3 RBC 5.11 (4.63-6.08) M/mm3 Hgb 13.3 L D (13.7-17.5) gm/dl Hct 39.2 L (40.1-51.0) % MCV 76.7 L (79.0-92.2) fl MCH 26.0 (25.7-32.2) pg MCHC 33.9 (32.2-35.5) g/dl RDW Std Deviation 38.3 (35.1-43.9) fL Plt Count 260 (163-337) K/mm3 MPV 12.0 (9.4-12.3) fl Neut % (Auto) 64.6 (34.0-67.9) % Lymph % (Auto) 27.0 (21.8-53.1) % [place] % (Auto) 7.5 (5.3-12.2) % Eos % (Auto) 0 L (0.8-7.0) Baso % (Auto) 0.1 (0.1-1.2) % Neut # (Auto) 4.65 (1.78-5.38) K/mm3 Lymph # (Auto) 1.95 (1.32-3.57) K/mm3 [place] # (Auto) 0.54 (0.30-0.82) K/mm3 Eos # (Auto) 0.00 L (0.04-0.54) K/mm3 Baso # (Auto) 0.01 (0.01-0.08) K/mm3 Manual Slide Review Normal smear Sodium 138 (136-145) mEq/L Potassium 2.8 L (3.5-5.1) mEq/L Chloride 102 (98-107) mEq/L Carbon Dioxide 23 (21-32) mEq/L Anion Gap 15.8 H (5-15) BUN 9 (7-18) mg/dL Creatinine 1.0 (0.7-1.3) mg/dL Est Cr Clr Drug Dosing 148.50 mL/min Estimated GFR (MDRD) > 60 (>60) mL/min BUN/Creatinine Ratio 9.0 L (14-18) Glucose 184 H (74-106) mg/dL POC Glucose 226 H (70-105) mg/dL Calcium 9.2 (8.5-10.1) mg/dL Phosphorus 1.7 L (2.6-4.7) mg/dL Magnesium 1.7 L (1.8-2.4) mg/dl C-Reactive Protein 12.8 H* (<1.0) mg/dL 03/08/20 03/08/20 03/08/20 Range/Units 11:22 13:28 15:25 WBC (4.23-9.07) K/mm3 RBC (4.63-6.08) M/mm3 Hgb (13.7-17.5) gm/dl Hct (40.1-51.0) % MCV (79.0-92.2) fl MCH (25.7-32.2) pg MCHC (32.2-35.5) g/dl RDW Std Deviation (35.1-43.9) fL Plt Count (163-337) K/mm3 MPV (9.4-12.3) fl Neut % (Auto) (34.0-67.9) % Lymph % (Auto) (21.8-53.1) % [place] % (Auto) (5.3-12.2) % Eos % (Auto) (0.8-7.0) Baso % (Auto) (0.1-1.2) % Neut # (Auto) (1.78-5.38) K/mm3 Lymph # (Auto) (1.32-3.57) K/mm3 [place] # (Auto) (0.30-0.82) K/mm3 Eos # (Auto) (0.04-0.54) K/mm3 Baso # (Auto) (0.01-0.08) K/mm3 Manual Slide Review Sodium (136-145) mEq/L Potassium (3.5-5.1) mEq/L Chloride (98-107) mEq/L Carbon Dioxide (21-32) mEq/L Anion Gap (5-15) BUN (7-18) mg/dL Creatinine (0.7-1.3) mg/dL Est Cr Clr Drug Dosing mL/min Estimated GFR (MDRD) (>60) mL/min BUN/Creatinine Ratio (14-18) Glucose (74-106) mg/dL POC Glucose 197 H 194 H 217 H (70-105) mg/dL Calcium (8.5-10.1) mg/dL Phosphorus (2.6-4.7) mg/dL Magnesium (1.8-2.4) mg/dl C-Reactive Protein (<1.0) mg/dL 03/08/20 Range/Units 17:20 WBC (4.23-9.07) K/mm3 RBC (4.63-6.08) M/mm3 Hgb (13.7-17.5) gm/dl Hct (40.1-51.0) % MCV (79.0-92.2) fl MCH (25.7-32.2) pg MCHC (32.2-35.5) g/dl RDW Std Deviation (35.1-43.9) fL Plt Count (163-337) K/mm3 MPV (9.4-12.3) fl Neut % (Auto) (34.0-67.9) % Lymph % (Auto) (21.8-53.1) % [place] % (Auto) (5.3-12.2) % Eos % (Auto) (0.8-7.0) Baso % (Auto) (0.1-1.2) % Neut # (Auto) (1.78-5.38) K/mm3 Lymph # (Auto) (1.32-3.57) K/mm3 [place] # (Auto) (0.30-0.82) K/mm3 Eos # (Auto) (0.04-0.54) K/mm3 Baso # (Auto) (0.01-0.08) K/mm3 Manual Slide Review Sodium (136-145) mEq/L Potassium (3.5-5.1) mEq/L Chloride (98-107) mEq/L Carbon Dioxide (21-32) mEq/L Anion Gap (5-15) BUN (7-18) mg/dL Creatinine (0.7-1.3) mg/dL Est Cr Clr Drug Dosing mL/min Estimated GFR (MDRD) (>60) mL/min BUN/Creatinine Ratio (14-18) Glucose (74-106) mg/dL POC Glucose 226 H (70-105) mg/dL Calcium (8.5-10.1) mg/dL Phosphorus (2.6-4.7) mg/dL Magnesium (1.8-2.4) mg/dl C-Reactive Protein (<1.0) mg/dL Sven Results Last 24 Hours: Microbiology 03/07/20 13:00 Gram Stain - Final Sputum - Expectorated Sputum Culture - Preliminary Gram Positive Cocci YEAST 03/06/20 13:45 Aerobic Blood Culture - Preliminary Blood - Venous - Lab Draw NO GROWTH AFTER 2 DAYS Anaerobic Blood Culture - Preliminary NO GROWTH AFTER 2 DAYS 03/06/20 13:50 Aerobic Blood Culture - Preliminary Blood - Venous NO GROWTH AFTER 2 DAYS Anaerobic Blood Culture - Preliminary NO GROWTH AFTER 2 DAYS Med Orders - Current: Current Medications Hydrocodone Bitart/Acetaminophen ([place] 325-5 Mg) 1 tab PO Q4H PRN PRN Reason: Pain (moderate 4-6) Albuterol/Ipratropium (Duoneb 3.0-0.5 Mg/3 Ml) 3 ml NEB Q4H PRN PRN Reason: Shortness Of Breath/wheezing Azithromycin (Zithromax) 500 mg PO DAILY [facility] ANGEL Dextrose/Water (Dextrose 50% In Water) 50 ml IVPUSH ASDIRECTED PRN PRN Reason: Hypoglycemia Last Admin: 03/07/20 13:16 Dose: 50 ml Documented by: Enoxaparin Sodium (Lovenox) 40 mg SUBCUT DAILY [facility] Last Admin: 03/08/20 09:24 Dose: 40 mg Documented by: Guaifenesin/Phenylephrine HCl (Robitussin Dm) 10 ml PO Q4H PRN PRN Reason: Cough Hydromorphone HCl (Dilaudid) 0.5 mg IVPUSH Q2H PRN PRN Reason: Pain (severe 7-10) Promethazine HCl 6.25 mg/ (Sodium Chloride) 50.25 mls @ 100 mls/hr IV Q6H PRN PRN Reason: Nausea/Vomiting Insulin Human Regular 100 unit (/ Sodium Chloride) 100 mls @ 707.604 mls/hr IV TITRATE [facility]; Protocol Last Titration: 03/07/20 21:16 Dose: 0 units/kg/hr, 0 mls/hr Documented by: Dextrose/Water (Dextrose 5% In Water) 1,000 mls @ 150 mls/hr IV ASDIRECTED [facility] Last Infusion: 03/07/20 21:08 Dose: 0 mls/hr Documented by: Ceftriaxone Sodium 1 gm/ (Sodium Chloride) 100 mls @ 200 mls/hr IV Q24H [facility] Stop: 03/11/20 18:31 Last Admin: 03/08/20 17:29 Dose: 200 mls/hr Documented by: Insulin Glargine (Lantus) 60 unit SUBCUT BEDTIME [facility] Last Admin: 03/07/20 20:58 Dose: 60 units Documented by: Insulin Human Lispro (Humalog) 0 unit SUBCUT QIDACANDBED [facility]; Protocol Last Admin: 03/08/20 17:20 Dose: 4 units Documented by: Insulin Human Lispro (Humalog) 8 unit SUBCUT TIDAC [facility] Last Admin: 03/08/20 17:19 Dose: 8 units Documented by: Magnesium Oxide (Magnesium Oxide) 400 mg PO BID [facility] Last Admin: 03/08/20 09:24 Dose: 400 mg Documented by: Ondansetron HCl (Zofran) 4 mg IV Q6H PRN PRN Reason: Nausea/Vomiting Potassium Chloride (Klor-Con M20) 40 meq PO BID [facility] Stop: 03/09/20 09:01 Discontinued Medications Dexamethasone (Decadron) 6 mg IVPUSH ONETIME ONE Stop: 03/06/20 18:01 Last Admin: 03/06/20 18:15 Dose: 6 mg Documented by: Dexamethasone (Dexamethasone) 6 mg PO DAILY [facility] Last Admin: 03/07/20 09:31 Dose: 6 mg Documented by: Heparin Sodium (Porcine) (Heparin Sodium) 5,000 units SUBCUT Q8H [facility] Last Admin: 03/08/20 03:03 Dose: 5,000 units Documented by: Hydromorphone HCl (Dilaudid) 1 mg IVPUSH ONETIME ONE Stop: 03/06/20 13:30 Last Admin: 03/06/20 13:55 Dose: 1 mg Documented by: Lactated Ringer's (Ringers, Lactated) 1,000 mls @ 999 mls/hr IV ASDIRECTED [facility] Last Admin: 03/06/20 15:48 Dose: 999 mls/hr Documented by: Potassium Chloride 10 meq/ (Premix) 100 mls @ 100 mls/hr IV Q1H [facility] Stop: 03/06/20 19:14 Last Admin: 03/06/20 16:55 Dose: Not Given Documented by: Lactated Ringer's (Ringers, Lactated) 1,000 mls @ 999 mls/hr IV ASDIRECTED [facility] Last Admin: 03/06/20 16:57 Dose: 999 mls/hr Documented by: Insulin Human Regular 100 unit (/ Sodium Chloride) 100 mls @ 3 mls/hr IV TITRATE [facility]; Protocol Last Titration: 03/07/20 06:37 Dose: 10 units/hr, 10 mls/hr Documented by: Bamlanivimab 700 mg/ Sodium (Chloride) 200 mls @ 200 mls/hr IV ONETIME ONE; Protocol Stop: 03/06/20 16:00 Last Admin: 03/06/20 16:51 Dose: 200 mls/hr Documented by: Potassium Chloride 10 meq/ (Premix) 100 mls @ 100 mls/hr IV Q1H [facility] Stop: 03/06/20 21:59 Last Admin: 03/07/20 01:30 Dose: 50 mls/hr Documented by: Ceftriaxone Sodium 1 gm/ (Sodium Chloride) 100 mls @ 200 mls/hr IV Q24H [facility] Stop: 03/11/20 18:31 Last Admin: 03/06/20 18:48 Dose: 200 mls/hr Documented by: Azithromycin 500 mg/ Sodium (Chloride) 250 mls @ 250 mls/hr IV Q24H [facility] Last Admin: 03/07/20 20:29 Dose: 250 mls/hr Documented by: Sodium Bicarbonate 75 meq/ (Sodium Chloride) 1,075 mls @ 125 mls/hr IV ASDIRECTED [facility] Last Admin: 03/06/20 21:45 Dose: 125 mls/hr Documented by: Sodium Bicarbonate 75 meq/ (Sodium Chloride) 1,075 mls @ 125 mls/hr IV Q8H [facility] Last Admin: 03/08/20 00:38 Dose: Not Given Documented by: Sodium Chloride 77 meq/ Sodium Bicarbonate 75 meq/ Sterile Water 1,094.25 mls @ 125 mls/hr IV Q8H [facility] Last Admin: 03/08/20 00:38 Dose: Not Given Documented by: Magnesium Sulfate (Magnesium Sulfate In Water Premix) 2 gm in 50 mls @ 25 mls/hr IV ONETIME ONE Stop: 03/08/20 08:06 Last Admin: 03/08/20 06:18 Dose: 25 mls/hr Documented by: Insulin Glargine (Lantus) 25 unit SUBCUT ONETIME ONE Stop: 03/06/20 18:46 Last Admin: 03/06/20 22:05 Dose: Not Given Documented by: Insulin Glargine (Lantus) 25 unit SUBCUT ONETIME ONE Stop: 03/06/20 21:20 Last Admin: 03/06/20 21:38 Dose: 25 units Documented by: Insulin Human Lispro (Humalog) 20 unit SUBCUT [facility] Last Admin: 03/07/20 21:14 Dose: 24 units Documented by: [facility]ulin [facility] Last Admin: 03/08/20 12:51 Dose: Not Given Documented by: Insulin Human Lispro (Humalog) 5 unit SUBCUT ONETIME ONE Stop: 03/08/20 13:33 Last Admin: 03/08/20 13:36 Dose: 5 units Documented by: Insulin Human Lispro (Humalog) 8 unit SUBCUT [facility] Insulin Human Regular (Humulin R) 3 unit IV ONETIME ONE Stop: 03/06/20 13:25 Last Admin: 03/06/20 14:01 Dose: 3 unit Documented by: Metoclopramide HCl (Reglan) 10 mg IVPUSH ONETIME ONE Stop: 03/06/20 13:30 Last Admin: 03/06/20 13:56 Dose: 10 mg Documented by: Potassium Chloride (Klor-Con M20) 60 meq PO ONETIME ONE Stop: 03/07/20 06:39 Last Admin: 03/07/20 06:50 Dose: 60 meq Documented by: Potassium Chloride (Klor-Con M20) 60 meq PO ONETIME ONE Stop: 03/07/20 16:02 Last Admin: 03/07/20 17:06 Dose: 60 meq Documented by: Potassium Chloride (Klor-Con M20) 60 meq PO ONETIME ONE Stop: 03/07/20 19:14 Last Admin: 03/07/20 19:28 Dose: 60 meq Documented by: Potassium Chloride (Klor-Con M20) 60 meq PO ONETIME ONE Stop: 03/08/20 06:06 Last Admin: 03/08/20 06:20 Dose: 60 meq Documented by: Sodium Phosphate (Neutra-Phos) 250 mg PO QID [facility] ANGEL Stop: 03/08/20 17:01 Last Admin: 03/08/20 17:19 Dose: 250 mg Documented by: - Exam Quality Assessment: No: Supplemental Oxygen General: Alert, Oriented HEENT: Pupils Equal, Mucous Membr. Moist/[place] Neck: Supple Lungs: Clear to Auscultation, Normal Respiratory Effort Cardiovascular: Regular Rate, Regular Rhythm GI/Abdominal Exam: Normal Bowel Sounds, Soft, Non-Tender, No Distention Extremities: Normal Inspection, Normal Range of Motion, Non-Tender, No Pedal Edema, Normal Capillary Refill Neurological: No New Focal Deficit Psy/Mental Status: Alert, Normal Affect, Normal Mood Sepsis Event Note - Evaluation Sepsis Screening Result: No Definite Risk - Focused Exam Vital Signs: Vital Signs Temp Resp BP Pulse Ox 03/08/20 16:00 98.6 F 19 137/78 97 03/08/20 08:00 97.6 F 20 123/79 95 - Problem List & Annotations (1) COVID-19 determined by clinical diagnostic criteria SNOMED Code(s): 357916272, 149274582 Code(s): U07.1 - COVID-19 Status: Acute Current Visit: Yes (2) Diabetic ketoacidosis SNOMED Code(s): 075195086, 364362122 Code(s): E11.10 - TYPE 2 DIABETES MELLITUS WITH KETOACIDOSIS WITHOUT COMA Status: Acute Current Visit: Yes - Problem List Review Problem List Initiated/Reviewed/Updated: Yes - My Orders Last 24 Hours: My Active Orders 03/08/20 09:00 Enoxaparin [Lovenox] 40 mg SUBCUT DAILY Magnesium Oxide 400 mg PO BID 03/08/20 10:19 Patient Status [ADT] Routine 03/08/20 17:00 Insulin Lispro [HumaLOG] 8 unit SUBCUT TIDAC Insulin Lispro [HumaLOG] See Protocol SUBCUT QIDACANDBED 03/08/20 21:00 Potassium Chloride [Klor-Con M20] 40 meq PO BID 03/09/20 21:00 Azithromycin [Zithromax] 500 mg PO DAILY - Plan Plan:: Assessment: Acute: DKA, resolved Covid-19 Infection, S/p Bamlanivimab infusion Vial pneumonitis/Atypical pneumonia -Sputum positive for gram-positive cocci and yeast Leukocytosis resolved WBC 7.2 Hypokalemia, 2/2 extracellular losspotassium 2.8 Hypochloremia, resolved Increased AG Metabolic Acidosis, improving Elevated Ferritin Level Elevated LDH Elevated CRP Hypoalbuminemia Class I Obese Medical Non-compliance Resolved: Pseudohyponatremia, resolved Acute Kidney Injury, resolved Chronic: Asthma ASHD DM1 Eczema DM1 Obesity Plan: No respiratory issues Repeat CXR shows b/l patchy infiltrates Stop Dexamethazone 6 mg daily, patient is not on oxygen and it has not been shown to improve outcomes in patients not on oxygen. Also it could adversely affect his blood sugars and his recent DKA. PE prophylaxis with Lovenox Monitor inflammatory markers Continue IV rocephin and switch azithromycin to p.o. to cover for atypical pneumonia Nystatin swish and spit 3 times daily Diabetic education post DKA Encourage IS/FV use and bedside pulmonary exercise Recheck labs in the morning and correct potassium today On basal bolus insulin with sliding scale coverage and diabetic diet.
[2020-03-08] MEDS: Nystatin Susp 100,000 Unit/ML 5 ML Oral Syringe PO SCH (21:13)
[2020-03-08] MEDS: Potassium Chloride 20 MEQ Tab.ER PO SCH (21:13)
[2020-03-08] MEDS: Insulin Glarg,Human.Rec.Analog 100 Unit/ML SUBCUT SCH (21:13)
[2020-03-09] MEDS ORDERED: Magnesium Sulfate/Water 4 GM in Premix Bag 1 BAG IV ONE (07:30)
[2020-03-09] MEDS: Insulin Lispro 100 Units/ML 3 ML Vial SUBCUT SCH ×7 (07:36→21:42)
[2020-03-09] MEDS: Enoxaparin 40 MG/0.4 ML Syringe SUBCUT SCH (09:18)
[2020-03-09] MEDS: Nystatin Susp 100,000 Unit/ML 5 ML Oral Syringe PO SCH ×3 (09:19→20:42)
[2020-03-09] MEDS: Potassium Chloride 20 MEQ Tab.ER PO SCH ×4 (09:19→20:42)
[2020-03-09] MEDS: Magnesium Oxide 400 MG Tab PO SCH ×2 (09:19→20:41)
[2020-03-09] MEDS ORDERED: Azithromycin 250 MG Tab PO SCH (09:30)
[2020-03-09] MEDS ORDERED: Potassium Phosphates 30 MMOLE in Sodium Chloride 0.9% 500 ML IV ONE (10:00)
--- NOTE | 2020-03-09 10:44 | CR ---
PROCEDURE INFORMATION: Exam: XR Chest, 1 View Exam date and time: 03/07/2020 9:39 AM Age: 20 years old Clinical indication: Other: Covid-19 TECHNIQUE: Imaging protocol: XR of the chest Views: 1 view. COMPARISON: CR Chest 1V Frontal 03/06/2020 1:24 PM FINDINGS: Lungs: Patchy bilateral opacities may represent multifocal pneumonia. Pleural space: Unremarkable. No pleural effusion. No pneumothorax. Heart/Mediastinum: Unremarkable. No cardiomegaly. Bones/joints: Unremarkable. IMPRESSION: Patchy bilateral opacities may represent multifocal pneumonia including COVID- 19. Thank you for allowing us to participate in the care of your patient. Dictated and Authenticated by: Adam Squires MD 03/07/2020 11:28 AM Central Time ([place] & [place]) [facility]
[2020-03-09] MEDS ORDERED: Phosphorus #1 250 MG Tab PO ONE (14:00)
[2020-03-09] MEDS ORDERED: Potassium Chloride 20 MEQ Tab.ER PO ONE (14:00)
--- NOTE | 2020-03-09 14:39 | PCM.PN ---
- General Info Date of Service: 03/09/20 Admission Dx/Problem (Free Text): Generalized Weakness Subjective Update: Patient states he is feeling pretty well. He is still having some diarrhea. Tolerating his diet. Functional Status: Reports: Pain Controlled, Tolerating Diet, Ambulating, Urinating, Incentive Spirometry - Review of Systems General: Reports: No Symptoms HEENT: Reports: No Symptoms Pulmonary: Reports: Cough. Denies: Sputum Cardiovascular: Reports: No Symptoms Gastrointestinal: Reports: No Symptoms Genitourinary: Reports: No Symptoms Musculoskeletal: Reports: No Symptoms Skin: Reports: No Symptoms Neurological: Reports: No Symptoms Psychiatric: Reports: No Symptoms - Patient Data Vitals - Most Recent: Last Vital Signs Temp 98.2 F 03/09/20 10:00 Pulse 94 03/08/20 21:34 Resp 15 03/09/20 04:00 BP 131/71 03/09/20 10:00 Pulse Ox 100 03/09/20 04:00 Weight - Most Recent: 251 lb 9.6 oz I&O - Last 24 Hours: Intake & Output 03/08/20 03/09/20 03/09/20 22:59 06:59 14:59 Intake Total 500 800 120 Balance 500 800 120 Lab Results Last 24 Hours: Laboratory Results - last 24 hr 03/08/20 03/08/20 03/08/20 Range/Units 15:25 17:20 21:12 WBC (4.23-9.07) K/mm3 RBC (4.63-6.08) M/mm3 Hgb (13.7-17.5) gm/dl Hct (40.1-51.0) % MCV (79.0-92.2) fl MCH (25.7-32.2) pg MCHC (32.2-35.5) g/dl RDW Std Deviation (35.1-43.9) fL Plt Count (163-337) K/mm3 MPV (9.4-12.3) fl Neut % (Auto) (34.0-67.9) % Lymph % (Auto) (21.8-53.1) % [place] % (Auto) (5.3-12.2) % Eos % (Auto) (0.8-7.0) Baso % (Auto) (0.1-1.2) % Neut # (Auto) (1.78-5.38) K/mm3 Lymph # (Auto) (1.32-3.57) K/mm3 [place] # (Auto) (0.30-0.82) K/mm3 Eos # (Auto) (0.04-0.54) K/mm3 Baso # (Auto) (0.01-0.08) K/mm3 Manual Slide Review Sodium (136-145) mEq/L Potassium (3.5-5.1) mEq/L Chloride (98-107) mEq/L Carbon Dioxide (21-32) mEq/L Anion Gap (5-15) BUN (7-18) mg/dL Creatinine (0.7-1.3) mg/dL Est Cr Clr Drug Dosing mL/min Estimated GFR (MDRD) (>60) mL/min BUN/Creatinine Ratio (14-18) Glucose (74-106) mg/dL POC Glucose 217 H 226 H 286 H (70-105) mg/dL Calcium (8.5-10.1) mg/dL Phosphorus (2.6-4.7) mg/dL Magnesium (1.8-2.4) mg/dl C-Reactive Protein (<1.0) mg/dL 03/08/20 03/09/20 03/09/20 Range/Units 22:05 04:29 04:29 WBC 7.46 (4.23-9.07) K/mm3 RBC 4.99 (4.63-6.08) M/mm3 Hgb 13.0 L (13.7-17.5) gm/dl Hct 38.5 L (40.1-51.0) % MCV 77.2 L (79.0-92.2) fl MCH 26.1 (25.7-32.2) pg MCHC 33.8 (32.2-35.5) g/dl RDW Std Deviation 38.8 (35.1-43.9) fL Plt Count 281 (163-337) K/mm3 MPV 10.8 (9.4-12.3) fl Neut % (Auto) 45.9 (34.0-67.9) % Lymph % (Auto) 41.3 (21.8-53.1) % [place] % (Auto) 10.1 (5.3-12.2) % Eos % (Auto) 0.3 L (0.8-7.0) Baso % (Auto) 0.5 (0.1-1.2) % Neut # (Auto) 3.43 (1.78-5.38) K/mm3 Lymph # (Auto) 3.08 (1.32-3.57) K/mm3 [place] # (Auto) 0.75 (0.30-0.82) K/mm3 Eos # (Auto) 0.02 L (0.04-0.54) K/mm3 Baso # (Auto) 0.04 (0.01-0.08) K/mm3 Manual Slide Review Abnormal smear Sodium 137 (136-145) mEq/L Potassium 2.6 L (3.5-5.1) mEq/L Chloride 101 (98-107) mEq/L Carbon Dioxide 23 (21-32) mEq/L Anion Gap 15.6 H (5-15) BUN 11 (7-18) mg/dL Creatinine 0.9 (0.7-1.3) mg/dL Est Cr Clr Drug Dosing 165.00 mL/min Estimated GFR (MDRD) > 60 (>60) mL/min BUN/Creatinine Ratio 12.2 L (14-18) Glucose 227 H (74-106) mg/dL POC Glucose 289 H (70-105) mg/dL Calcium 8.5 (8.5-10.1) mg/dL Phosphorus 1.7 L (2.6-4.7) mg/dL Magnesium 1.4 L (1.8-2.4) mg/dl C-Reactive Protein 5.4 H* (<1.0) mg/dL 03/09/20 03/09/20 Range/Units 05:57 12:54 WBC (4.23-9.07) K/mm3 RBC (4.63-6.08) M/mm3 Hgb (13.7-17.5) gm/dl Hct (40.1-51.0) % MCV (79.0-92.2) fl MCH (25.7-32.2) pg MCHC (32.2-35.5) g/dl RDW Std Deviation (35.1-43.9) fL Plt Count (163-337) K/mm3 MPV (9.4-12.3) fl Neut % (Auto) (34.0-67.9) % Lymph % (Auto) (21.8-53.1) % [place] % (Auto) (5.3-12.2) % Eos % (Auto) (0.8-7.0) Baso % (Auto) (0.1-1.2) % Neut # (Auto) (1.78-5.38) K/mm3 Lymph # (Auto) (1.32-3.57) K/mm3 [place] # (Auto) (0.30-0.82) K/mm3 Eos # (Auto) (0.04-0.54) K/mm3 Baso # (Auto) (0.01-0.08) K/mm3 Manual Slide Review Sodium (136-145) mEq/L Potassium (3.5-5.1) mEq/L Chloride (98-107) mEq/L Carbon Dioxide (21-32) mEq/L Anion Gap (5-15) BUN (7-18) mg/dL Creatinine (0.7-1.3) mg/dL Est Cr Clr Drug Dosing mL/min Estimated GFR (MDRD) (>60) mL/min BUN/Creatinine Ratio (14-18) Glucose (74-106) mg/dL POC Glucose 197 H 265 H (70-105) mg/dL Calcium (8.5-10.1) mg/dL Phosphorus (2.6-4.7) mg/dL Magnesium (1.8-2.4) mg/dl C-Reactive Protein (<1.0) mg/dL Sven Results Last 24 Hours: Microbiology 03/06/20 13:45 Aerobic Blood Culture - Preliminary Blood - Venous - Lab Draw NO GROWTH AFTER 3 DAYS Anaerobic Blood Culture - Preliminary NO GROWTH AFTER 3 DAYS 03/06/20 13:50 Aerobic Blood Culture - Preliminary Blood - Venous NO GROWTH AFTER 3 DAYS Anaerobic Blood Culture - Preliminary NO GROWTH AFTER 3 DAYS 03/07/20 13:00 Gram Stain - Final Sputum - Expectorated Sputum Culture - Preliminary Gram Positive Cocci [place] Med Orders - Current: Current Medications Hydrocodone Bitart/Acetaminophen ([place] 325-5 Mg) 1 tab PO Q4H PRN PRN Reason: Pain (moderate 4-6) Albuterol/Ipratropium (Duoneb 3.0-0.5 Mg/3 Ml) 3 ml NEB Q4H PRN PRN Reason: Shortness Of Breath/wheezing Dextrose/Water (Dextrose 50% In Water) 50 ml IVPUSH ASDIRECTED PRN PRN Reason: Hypoglycemia Last Admin: 03/07/20 13:16 Dose: 50 ml Documented by: Enoxaparin Sodium (Lovenox) 40 mg SUBCUT DAILY [facility] Last Admin: 03/09/20 09:18 Dose: 40 mg Documented by: Guaifenesin/Phenylephrine HCl (Robitussin Dm) 10 ml PO Q4H PRN PRN Reason: Cough Hydromorphone HCl (Dilaudid) 0.5 mg IVPUSH Q2H PRN PRN Reason: Pain (severe 7-10) Promethazine HCl 6.25 mg/ (Sodium Chloride) 50.25 mls @ 100 mls/hr IV Q6H PRN PRN Reason: Nausea/Vomiting Insulin Human Regular 100 unit (/ Sodium Chloride) 100 mls @ 707.604 mls/hr IV TITRATE [facility]; Protocol Last Titration: 03/07/20 21:16 Dose: 0 units/kg/hr, 0 mls/hr Documented by: Ceftriaxone Sodium 1 gm/ (Sodium Chloride) 100 mls @ 200 mls/hr IV Q24H [facility] Stop: 03/10/20 18:59 Last Admin: 03/08/20 17:29 Dose: 200 mls/hr Documented by: Insulin Glargine (Lantus) 60 unit SUBCUT BEDTIME [facility] Last Admin: 03/08/20 21:13 Dose: 60 units Documented by: Insulin Human Lispro (Humalog) 0 unit SUBCUT QIDACANDBED [facility]; Protocol Last Admin: 03/09/20 12:57 Dose: 6 units Documented by: Insulin Human Lispro (Humalog) 8 unit SUBCUT TIDAC [facility] Last Admin: 03/09/20 12:58 Dose: 8 units Documented by: Magnesium Oxide (Magnesium Oxide) 400 mg PO BID [facility] Last Admin: 03/09/20 09:19 Dose: 400 mg Documented by: Nystatin (Nystatin Oral Syringe) 500,000 unit PO TID [facility] Last Admin: 03/09/20 14:26 Dose: 500,000 unit Documented by: Ondansetron HCl (Zofran) 4 mg IV Q6H PRN PRN Reason: Nausea/Vomiting Potassium Chloride (Klor-Con M20) 40 meq PO Q6H [facility] Stop: 03/09/20 20:01 Last Admin: 03/09/20 14:27 Dose: 40 meq Documented by: Discontinued Medications Azithromycin (Zithromax) 500 mg PO DAILY [facility] Last Admin: 03/09/20 09:27 Dose: 500 mg Documented by: Dexamethasone (Decadron) 6 mg IVPUSH ONETIME ONE Stop: 03/06/20 18:01 Last Admin: 03/06/20 18:15 Dose: 6 mg Documented by: Dexamethasone (Dexamethasone) 6 mg PO DAILY [facility] Last Admin: 03/07/20 09:31 Dose: 6 mg Documented by: Heparin Sodium (Porcine) (Heparin Sodium) 5,000 units SUBCUT Q8H [facility] Last Admin: 03/08/20 03:03 Dose: 5,000 units Documented by: Hydromorphone HCl (Dilaudid) 1 mg IVPUSH ONETIME ONE Stop: 03/06/20 13:30 Last Admin: 03/06/20 13:55 Dose: 1 mg Documented by: Lactated Ringer's (Ringers, Lactated) 1,000 mls @ 999 mls/hr IV ASDIRECTED [facility] Last Admin: 03/06/20 15:48 Dose: 999 mls/hr Documented by: Potassium Chloride 10 meq/ (Premix) 100 mls @ 100 mls/hr IV Q1H [facility] Stop: 03/06/20 19:14 Last Admin: 03/06/20 16:55 Dose: Not Given Documented by: Lactated Ringer's (Ringers, Lactated) 1,000 mls @ 999 mls/hr IV ASDIRECTED [facility] Last Admin: 03/06/20 16:57 Dose: 999 mls/hr Documented by: Insulin Human Regular 100 unit (/ Sodium Chloride) 100 mls @ 3 mls/hr IV TITRATE [facility]; Protocol Last Titration: 03/07/20 06:37 Dose: 10 units/hr, 10 mls/hr Documented by: Bamlanivimab 700 mg/ Sodium (Chloride) 200 mls @ 200 mls/hr IV ONETIME ONE; Protocol Stop: 03/06/20 16:00 Last Admin: 03/06/20 16:51 Dose: 200 mls/hr Documented by: Potassium Chloride 10 meq/ (Premix) 100 mls @ 100 mls/hr IV Q1H [facility] Stop: 03/06/20 21:59 Last Admin: 03/07/20 01:30 Dose: 50 mls/hr Documented by: Ceftriaxone Sodium 1 gm/ (Sodium Chloride) 100 mls @ 200 mls/hr IV Q24H [facility] Stop: 03/11/20 18:31 Last Admin: 03/06/20 18:48 Dose: 200 mls/hr Documented by: Azithromycin 500 mg/ Sodium (Chloride) 250 mls @ 250 mls/hr IV Q24H [facility] Last Admin: 03/07/20 20:29 Dose: 250 mls/hr Documented by: Sodium Bicarbonate 75 meq/ (Sodium Chloride) 1,075 mls @ 125 mls/hr IV ASDIRECTED [facility] Last Admin: 03/06/20 21:45 Dose: 125 mls/hr Documented by: Dextrose/Water (Dextrose 5% In Water) 1,000 mls @ 150 mls/hr IV ASDIRECTED [facility] Last Infusion: 03/07/20 21:08 Dose: 0 mls/hr Documented by: Sodium Bicarbonate 75 meq/ (Sodium Chloride) 1,075 mls @ 125 mls/hr IV Q8H [facility] Last Admin: 03/08/20 00:38 Dose: Not Given Documented by: Sodium Chloride 77 meq/ Sodium Bicarbonate 75 meq/ Sterile Water 1,094.25 mls @ 125 mls/hr IV Q8H [facility] Last Admin: 03/08/20 00:38 Dose: Not Given Documented by: Magnesium Sulfate (Magnesium Sulfate In Water Premix) 2 gm in 50 mls @ 25 mls/hr IV ONETIME ONE Stop: 03/08/20 08:06 Last Admin: 03/08/20 06:18 Dose: 25 mls/hr Documented by: Potassium Phosphate 30 mmole/ (Sodium Chloride) 510 mls @ 102 mls/hr IV ONETIME ONE Stop: 03/09/20 14:59 Last Infusion: 03/09/20 09:32 Dose: 50 mls/hr Documented by: Magnesium Sulfate 4 gm/ Premix 50 mls @ 12.5 mls/hr IV ONETIME ONE Stop: 03/09/20 11:29 Last Admin: 03/09/20 07:38 Dose: 12.5 mls/hr Documented by: Insulin Glargine (Lantus) 25 unit SUBCUT ONETIME ONE Stop: 03/06/20 18:46 Last Admin: 03/06/20 22:05 Dose: Not Given Documented by: Insulin Glargine (Lantus) 25 unit SUBCUT ONETIME ONE Stop: 03/06/20 21:20 Last Admin: 03/06/20 21:38 Dose: 25 units Documented by: Insulin Human [facility]og) [facility] Last Admin: 03/07/20 21:14 Dose: 24 units Documented by: Insulin Human Lispro (Humalog) 24 unit SUBCUT TIDAC [facility] Last Admin: 03/08/20 12:51 Dose: Not Given Documented by: Insulin Human Lispro (Humalog) 5 unit SUBCUT ONETIME ONE Stop: 03/08/20 13:33 Last Admin: 03/08/20 13:36 Dose: 5 units Documented by: Insulin Human Lispro (Humalog) 8 unit SUBCUT [facility] Insulin Human Regular (Humulin R) 3 unit IV ONETIME ONE Stop: 03/06/20 13:25 Last Admin: 03/06/20 14:01 Dose: 3 unit Documented by: Metoclopramide HCl (Reglan) 10 mg IVPUSH ONETIME ONE Stop: 03/06/20 13:30 Last Admin: 03/06/20 13:56 Dose: 10 mg Documented by: Potassium Chloride (Klor-Con M20) 60 meq PO ONETIME ONE Stop: 03/07/20 06:39 Last Admin: 03/07/20 06:50 Dose: 60 meq Documented by: Potassium Chloride (Klor-Con M20) 60 meq PO ONETIME ONE Stop: 03/07/20 16:02 Last Admin: 03/07/20 17:06 Dose: 60 meq Documented by: Potassium Chloride (Klor-Con M20) 60 meq PO ONETIME ONE Stop: 03/07/20 19:14 Last Admin: 03/07/20 19:28 Dose: 60 meq Documented by: Potassium Chloride (Klor-Con M20) 60 meq PO ONETIME ONE Stop: 03/08/20 06:06 Last Admin: 03/08/20 06:20 Dose: 60 meq Documented by: Potassium Chloride (Klor-Con M20) 40 meq PO BID [facility] Stop: 03/09/20 09:01 Last Admin: 03/09/20 09:19 Dose: 40 meq Documented by: Potassium Chloride (Klor-Con M20) 40 meq PO ONETIME ONE Stop: 03/09/20 14:01 Last Admin: 03/09/20 14:26 Dose: 40 meq Documented by: Sodium Phosphate (Neutra-Phos) 250 mg PO QID [facility] Stop: 03/08/20 17:01 Last Admin: 03/08/20 17:19 Dose: 250 mg Documented by: Sodium Phosphate (Neutra-Phos) 500 mg PO ONETIME ONE Stop: 03/09/20 14:01 Last Admin: 03/09/20 14:26 Dose: 500 mg Documented by: - Exam Quality Assessment: DVT Prophylaxis (Lovenox). No: Supplemental Oxygen General: Alert, Oriented, Cooperative, No Acute Distress HEENT: Pupils Equal, Pupils Reactive, Mucous Membr. Moist/[place] Neck: Supple, Trachea Midline. No: Lymphadenopathy Lungs: Clear to Auscultation, Normal Respiratory Effort Cardiovascular: Regular Rate, Regular Rhythm, No Murmurs GI/Abdominal Exam: Normal Bowel Sounds, Soft, Non-Tender, No Distention (Male) Exam: Deferred Back Exam: Normal Inspection, Full Range of Motion Extremities: Normal Inspection, Normal Range of Motion, Non-Tender, No Pedal Edema, Normal Capillary Refill Peripheral Pulses: 2+: Radial (L), Radial (R), Dorsalis Pedis (L), Dorsalis Pedis (R) Skin: Warm, Dry, Intact Neurological: No New Focal Deficit Psy/Mental Status: Alert, Normal Affect, Normal Mood Sepsis Event Note - Evaluation Sepsis Screening Result: No Definite Risk - Focused Exam Vital Signs: Vital Signs Temp Resp BP Pulse Ox 03/09/20 10:00 98.2 F 131/71 03/09/20 04:00 97.1 F 15 134/65 100 - Problem List & Annotations (1) COVID-19 determined by clinical diagnostic criteria SNOMED Code(s): 259414278, 246847200 Code(s): U07.1 - COVID-19 Status: Acute Priority: High Current Visit: Yes (2) Diabetic ketoacidosis SNOMED Code(s): 538960878, 453027982 Code(s): E11.10 - TYPE 2 DIABETES MELLITUS WITH KETOACIDOSIS WITHOUT COMA Status: Acute Priority: High Current Visit: Yes Qualifiers: Diabetes mellitus type: type 2 Diabetes mellitus complication detail: without coma Qualified Code(s): E11.10 - Type 2 diabetes mellitus with ketoacidosis without coma - Problem List Review Problem List Initiated/Reviewed/Updated: Yes - Assessment Assessment:: 03/09/20 Acute: DKA, resolved Covid-19 Infection, S/p Bamlanivimab infusion Vial pneumonitis/Atypical pneumonia -Sputum positive for gram-positive cocci and yeast, patient is using nystatin swish and swallow Leukocytosis resolved WBC 7.2 Hypokalemia, 2/2 extracellular losspotassium 2.6 Hypophosphatemia 1.7 Hypomagnesemia 1.4 Hypochloremia, resolved Increased AG Metabolic Acidosis, improving Elevated Ferritin Level Elevated LDH Elevated CRP Hypoalbuminemia Class I Obese Medical Non-compliance Resolved: Pseudohyponatremia, resolved Acute Kidney Injury, resolved Chronic: Asthma ASHD DM1 Eczema DM1 Obesity - Plan Plan:: 03/09/20 Plan: No respiratory issues PE prophylaxis with Lovenox Monitor inflammatory markers Continue IV rocephin Nystatin swish and spit 3 times daily Diabetic education post DKA Encourage IS/FV use and bedside pulmonary exercise Recheck labs in the morning and correct potassium, phosphorus, and magnesium today On basal bolus insulin with sliding scale coverage and diabetic diet.
[2020-03-09] MEDS: cefTRIAXone 1 GM in Sodium Chloride 0.9% 100 ML IV SCH (18:00)
[2020-03-09] MEDS: Insulin Glarg,Human.Rec.Analog 100 Unit/ML SUBCUT SCH (20:44)
[2020-03-10] MEDS: Insulin Lispro 100 Units/ML 3 ML Vial SUBCUT SCH ×7 (06:31→21:49)
[2020-03-10] MEDS ORDERED: Magnesium Sulfate/Water 2 GM/50 ML BAG IV ONE (08:05)
[2020-03-10] MEDS: Potassium Chloride 20 MEQ Tab.ER PO SCH ×3 (09:10→15:30)
[2020-03-10] MEDS: Nystatin Susp 100,000 Unit/ML 5 ML Oral Syringe PO SCH ×3 (09:11→21:49)
[2020-03-10] MEDS: Enoxaparin 40 MG/0.4 ML Syringe SUBCUT SCH (09:11)
[2020-03-10] MEDS: Magnesium Oxide 400 MG Tab PO SCH ×2 (09:11→18:15)
[2020-03-10] MEDS: Doxycycline 100 MG Cap PO SCH ×2 (13:35→21:48)
--- NOTE | 2020-03-10 14:24 | PCM.PN ---
- General Info Date of Service: 03/10/20 Admission Dx/Problem (Free Text): Generalized Weakness Subjective Update: Patient states he is feeling well. He is up independently in his room. Tolerating his diet. Functional Status: Reports: Pain Controlled, Tolerating Diet, Ambulating, Urinating, Incentive Spirometry - Review of Systems General: Reports: No Symptoms HEENT: Reports: No Symptoms Pulmonary: Reports: No Symptoms Cardiovascular: Reports: No Symptoms Gastrointestinal: Reports: No Symptoms Genitourinary: Reports: No Symptoms Musculoskeletal: Reports: No Symptoms Skin: Reports: No Symptoms Neurological: Reports: No Symptoms Psychiatric: Reports: No Symptoms - Patient Data Vitals - Most Recent: Last Vital Signs Temp 97.1 F 03/10/20 09:19 Pulse 105 H 03/10/20 09:19 Resp 18 03/10/20 09:19 BP 136/69 03/10/20 09:19 Pulse Ox 96 03/10/20 09:19 Weight - Most Recent: 252 lb 9.6 oz I&O - Last 24 Hours: Intake & Output 03/09/20 03/10/20 03/10/20 22:59 06:59 14:59 Intake Total 1840 800 240 Balance 1840 800 240 Lab Results Last 24 Hours: Laboratory Results - last 24 hr 03/09/20 03/09/20 03/10/20 Range/Units 17:18 20:43 05:06 WBC (4.23-9.07) K/mm3 RBC (4.63-6.08) M/mm3 Hgb (13.7-17.5) gm/dl Hct (40.1-51.0) % MCV (79.0-92.2) fl MCH (25.7-32.2) pg MCHC (32.2-35.5) g/dl RDW Std Deviation (35.1-43.9) fL Plt Count (163-337) K/mm3 MPV (9.4-12.3) fl Neut % (Auto) (34.0-67.9) % Lymph % (Auto) (21.8-53.1) % [place] % (Auto) (5.3-12.2) % Eos % (Auto) (0.8-7.0) Baso % (Auto) (0.1-1.2) % Neut # (Auto) (1.78-5.38) K/mm3 Lymph # (Auto) (1.32-3.57) K/mm3 [place] # (Auto) (0.30-0.82) K/mm3 Eos # (Auto) (0.04-0.54) K/mm3 Baso # (Auto) (0.01-0.08) K/mm3 Manual Slide Review Sodium 144 (136-145) mEq/L Potassium 3.1 L (3.5-5.1) mEq/L Chloride 109 H (98-107) mEq/L Carbon Dioxide 24 (21-32) mEq/L Anion Gap 14.1 (5-15) BUN 7 (7-18) mg/dL Creatinine 0.5 L (0.7-1.3) mg/dL Est Cr Clr Drug Dosing 297.00 mL/min Estimated GFR (MDRD) > 60 (>60) mL/min BUN/Creatinine Ratio 14.0 (14-18) Glucose 131 H (74-106) mg/dL POC Glucose 240 H 222 H (70-105) mg/dL Calcium 8.7 (8.5-10.1) mg/dL Phosphorus 3.1 (2.6-4.7) mg/dL Magnesium 1.7 L (1.8-2.4) mg/dl 03/10/20 03/10/20 03/10/20 Range/Units 05:06 06:30 11:17 WBC 6.81 (4.23-9.07) K/mm3 RBC 4.97 (4.63-6.08) M/mm3 Hgb 13.1 L (13.7-17.5) gm/dl Hct 38.2 L (40.1-51.0) % MCV 76.9 L (79.0-92.2) fl MCH 26.4 (25.7-32.2) pg MCHC 34.3 (32.2-35.5) g/dl RDW Std Deviation 38.7 (35.1-43.9) fL Plt Count 303 (163-337) K/mm3 MPV 10.8 (9.4-12.3) fl Neut % (Auto) 41.9 (34.0-67.9) % Lymph % (Auto) 45.1 (21.8-53.1) % [place] % (Auto) 11.7 (5.3-12.2) % Eos % (Auto) 0.9 (0.8-7.0) Baso % (Auto) 0.4 (0.1-1.2) % Neut # (Auto) 2.85 (1.78-5.38) K/mm3 Lymph # (Auto) 3.07 (1.32-3.57) K/mm3 [place] # (Auto) 0.80 (0.30-0.82) K/mm3 Eos # (Auto) 0.06 (0.04-0.54) K/mm3 Baso # (Auto) 0.03 (0.01-0.08) K/mm3 Manual Slide Review Normal smear Sodium (136-145) mEq/L Potassium (3.5-5.1) mEq/L Chloride (98-107) mEq/L Carbon Dioxide (21-32) mEq/L Anion Gap (5-15) BUN (7-18) mg/dL Creatinine (0.7-1.3) mg/dL Est Cr Clr Drug Dosing mL/min Estimated GFR (MDRD) (>60) mL/min BUN/Creatinine Ratio (14-18) Glucose (74-106) mg/dL POC Glucose 131 H 218 H (70-105) mg/dL Calcium (8.5-10.1) mg/dL Phosphorus (2.6-4.7) mg/dL Magnesium (1.8-2.4) mg/dl Sven Results Last 24 Hours: Microbiology 03/06/20 13:45 Aerobic Blood Culture - Preliminary Blood - Venous - Lab Draw NO GROWTH AFTER 4 DAYS Anaerobic Blood Culture - Preliminary NO GROWTH AFTER 4 DAYS 03/06/20 13:50 Aerobic Blood Culture - Preliminary Blood - Venous NO GROWTH AFTER 4 DAYS Anaerobic Blood Culture - Preliminary NO GROWTH AFTER 4 DAYS 03/07/20 13:00 Gram Stain - Final Sputum - Expectorated Sputum Culture - Final (Mrsa) Staphylococcus Aureus [place] Albicans Med Orders - Current: Current Medications Hydrocodone Bitart/Acetaminophen ([place] 325-5 Mg) 1 tab PO Q4H PRN PRN Reason: Pain (moderate 4-6) Albuterol/Ipratropium (Duoneb 3.0-0.5 Mg/3 Ml) 3 ml NEB Q4H PRN PRN Reason: Shortness Of Breath/wheezing Dextrose/Water (Dextrose 50% In Water) 50 ml IVPUSH ASDIRECTED PRN PRN Reason: Hypoglycemia Last Admin: 03/07/20 13:16 Dose: 50 ml Documented by: Doxycycline Hyclate (Vibramycin) 100 mg PO BID [facility] Last Admin: 03/10/20 13:35 Dose: 100 mg Documented by: Enoxaparin Sodium (Lovenox) 40 mg SUBCUT DAILY [facility] Last Admin: 03/10/20 09:11 Dose: 40 mg Documented by: Guaifenesin/Phenylephrine HCl (Robitussin Dm) 10 ml PO Q4H PRN PRN Reason: Cough Hydromorphone HCl (Dilaudid) 0.5 mg IVPUSH Q2H PRN PRN Reason: Pain (severe 7-10) Promethazine HCl 6.25 mg/ (Sodium Chloride) 50.25 mls @ 100 mls/hr IV Q6H PRN PRN Reason: Nausea/Vomiting Insulin Human Regular 100 unit (/ Sodium Chloride) 100 mls @ 707.604 mls/hr IV TITRATE [facility]; Protocol Last Titration: 03/07/20 21:16 Dose: 0 units/kg/hr, 0 mls/hr Documented by: Insulin Glargine (Lantus) 60 unit SUBCUT BEDTIME [facility] Last Admin: 03/09/20 20:44 Dose: 60 units Documented by: Insulin Human Lispro (Humalog) 0 unit SUBCUT QIDACANDBED [facility]; Protocol Last Admin: 03/10/20 12:31 Dose: 4 units Documented by: Insulin Human Lispro (Humalog) 8 unit SUBCUT TIDAC [facility] Last Admin: 03/10/20 12:31 Dose: 8 units Documented by: Magnesium Oxide (Magnesium Oxide) 400 mg PO 0600,1700 [facility] Nystatin (Nystatin Oral Syringe) 500,000 unit PO TID [facility] Last Admin: 03/10/20 09:11 Dose: 500,000 unit Documented by: Ondansetron HCl (Zofran) 4 mg IV Q6H PRN PRN Reason: Nausea/Vomiting Potassium Chloride (Klor-Con M20) 40 meq PO Q4H [facility] Stop: 03/10/20 16:16 Last Admin: 03/10/20 12:30 Dose: 40 meq Documented by: Discontinued Medications Azithromycin (Zithromax) 500 mg PO DAILY [facility] Last Admin: 03/09/20 09:27 Dose: 500 mg Documented by: Dexamethasone (Decadron) 6 mg IVPUSH ONETIME ONE Stop: 03/06/20 18:01 Last Admin: 03/06/20 18:15 Dose: 6 mg Documented by: Dexamethasone (Dexamethasone) 6 mg PO DAILY [facility] Last Admin: 03/07/20 09:31 Dose: 6 mg Documented by: Heparin Sodium (Porcine) (Heparin Sodium) 5,000 units SUBCUT Q8H [facility] Last Admin: 03/08/20 03:03 Dose: 5,000 units Documented by: Hydromorphone HCl (Dilaudid) 1 mg IVPUSH ONETIME ONE Stop: 03/06/20 13:30 Last Admin: 03/06/20 13:55 Dose: 1 mg Documented by: Lactated Ringer's (Ringers, Lactated) 1,000 mls @ 999 mls/hr IV ASDIRECTED [facility] Last Admin: 03/06/20 15:48 Dose: 999 mls/hr Documented by: Potassium Chloride 10 meq/ (Premix) 100 mls @ 100 mls/hr IV Q1H [facility] Stop: 03/06/20 19:14 Last Admin: 03/06/20 16:55 Dose: Not Given Documented by: Lactated Ringer's (Ringers, Lactated) 1,000 mls @ 999 mls/hr IV ASDIRECTED [facility] Last Admin: 03/06/20 16:57 Dose: 999 mls/hr Documented by: Insulin Human Regular 100 unit (/ Sodium Chloride) 100 mls @ 3 mls/hr IV TITRATE [facility]; Protocol Last Titration: 03/07/20 06:37 Dose: 10 units/hr, 10 mls/hr Documented by: Bamlanivimab 700 mg/ Sodium (Chloride) 200 mls @ 200 mls/hr IV ONETIME ONE; Protocol Stop: 03/06/20 16:00 Last Admin: 03/06/20 16:51 Dose: 200 mls/hr Documented by: Potassium Chloride 10 meq/ (Premix) 100 mls @ 100 mls/hr IV Q1H [facility] Stop: 03/06/20 21:59 Last Admin: 03/07/20 01:30 Dose: 50 mls/hr Documented by: Ceftriaxone Sodium 1 gm/ (Sodium Chloride) 100 mls @ 200 mls/hr IV Q24H [facility] Stop: 03/11/20 18:31 Last Admin: 03/06/20 18:48 Dose: 200 mls/hr Documented by: Azithromycin 500 mg/ Sodium (Chloride) 250 mls @ 250 mls/hr IV Q24H [facility] Last Admin: 03/07/20 20:29 Dose: 250 mls/hr Documented by: Sodium Bicarbonate 75 meq/ (Sodium Chloride) 1,075 mls @ 125 mls/hr IV ASDIRECTED [facility] Last Admin: 03/06/20 21:45 Dose: 125 mls/hr Documented by: Dextrose/Water (Dextrose 5% In Water) 1,000 mls @ 150 mls/hr IV ASDIRECTED [facility] Last Infusion: 03/07/20 21:08 Dose: 0 mls/hr Documented by: Sodium Bicarbonate 75 meq/ (Sodium Chloride) 1,075 mls @ 125 mls/hr IV Q8H [facility] Last Admin: 03/08/20 00:38 Dose: Not Given Documented by: Ceftriaxone Sodium 1 gm/ (Sodium Chloride) 100 mls @ 200 mls/hr IV Q24H [facility] Stop: 03/10/20 18:59 Last Admin: 03/09/20 18:00 Dose: 200 mls/hr Documented by: Sodium Chloride 77 meq/ Sodium Bicarbonate 75 meq/ Sterile Water 1,094.25 mls @ 125 mls/hr IV Q8H [facility] Last Admin: 03/08/20 00:38 Dose: Not Given Documented by: Magnesium Sulfate (Magnesium Sulfate In Water Premix) 2 gm in 50 mls @ 25 mls/hr IV ONETIME ONE Stop: 03/08/20 08:06 Last Admin: 03/08/20 06:18 Dose: 25 mls/hr Documented by: Potassium Phosphate 30 mmole/ (Sodium Chloride) 510 mls @ 102 mls/hr IV ONETIME ONE Stop: 03/09/20 14:59 Last Infusion: 03/09/20 09:32 Dose: 50 mls/hr Documented by: Magnesium Sulfate 4 gm/ Premix 50 mls @ 12.5 mls/hr IV ONETIME ONE Stop: 03/09/20 11:29 Last Admin: 03/09/20 07:38 Dose: 12.5 mls/hr Documented by: Magnesium Sulfate (Magnesium Sulfate In Water Premix) 2 gm in 50 mls @ 25 mls/hr IV ONETIME ONE Stop: 03/10/20 10:04 Last Admin: 03/10/20 09:08 Dose: 25 mls/hr Documented by: Insulin Glargine (Lantus) 25 unit SUBCUT ONETIME ONE Stop: 03/06/20 18:46 Last Admin: 03/06/20 22:05 Dose: Not Given Documented by: Insulin Glargine (Lantus) 25 unit SUBCUT ONETIME ONE Stop: 03/06/20 21:20 Last Admin: 03/06/20 21:38 Dose: 25 units Documented by: Insulin Human Lispro (Humalog) 20 unit SUBCUT [facility] Last Admin: 03/07/20 21:14 Dose: 24 units Documented by: Insulin Human [facility] ([facility]alog) [facility] Last Admin: 03/08/20 12:51 Dose: Not Given Documented by: Insulin Human Lispro (Humalog) 5 unit SUBCUT ONETIME ONE Stop: 03/08/20 13:33 Last Admin: 03/08/20 13:36 Dose: 5 units Documented by: Insulin Human Lispro (Humalog) 8 unit SUBCUT [facility] Insulin Human Regular (Humulin R) 3 unit IV ONETIME ONE Stop: 03/06/20 13:25 Last Admin: 03/06/20 14:01 Dose: 3 unit Documented by: Magnesium Oxide (Magnesium Oxide) 400 mg PO BID [facility] Last Admin: 03/10/20 09:11 Dose: 400 mg Documented by: Metoclopramide HCl (Reglan) 10 mg IVPUSH ONETIME ONE Stop: 03/06/20 13:30 Last Admin: 03/06/20 13:56 Dose: 10 mg Documented by: Potassium Chloride (Klor-Con M20) 60 meq PO ONETIME ONE Stop: 03/07/20 06:39 Last Admin: 03/07/20 06:50 Dose: 60 meq Documented by: Potassium Chloride (Klor-Con M20) 60 meq PO ONETIME ONE Stop: 03/07/20 16:02 Last Admin: 03/07/20 17:06 Dose: 60 meq Documented by: Potassium Chloride (Klor-Con M20) 60 meq PO ONETIME ONE Stop: 03/07/20 19:14 Last Admin: 03/07/20 19:28 Dose: 60 meq Documented by: Potassium Chloride (Klor-Con M20) 60 meq PO ONETIME ONE Stop: 03/08/20 06:06 Last Admin: 03/08/20 06:20 Dose: 60 meq Documented by: Potassium Chloride (Klor-Con M20) 40 meq PO BID [facility] Stop: 03/09/20 09:01 Last Admin: 03/09/20 09:19 Dose: 40 meq Documented by: Potassium Chloride (Klor-Con M20) 40 meq PO Q6H [facility] Stop: 03/09/20 20:01 Last Admin: 03/09/20 20:42 Dose: 40 meq Documented by: Potassium Chloride (Klor-Con M20) 40 meq PO ONETIME ONE Stop: 03/09/20 14:01 Last Admin: 03/09/20 14:26 Dose: 40 meq Documented by: Sodium Phosphate (Neutra-Phos) 250 mg PO QID [facility] Stop: 03/08/20 17:01 Last Admin: 03/08/20 17:19 Dose: 250 mg Documented by: Sodium Phosphate (Neutra-Phos) 500 mg PO ONETIME ONE Stop: 03/09/20 14:01 Last Admin: 03/09/20 14:26 Dose: 500 mg Documented by: - Exam Quality Assessment: DVT Prophylaxis (Lovenox). No: Supplemental Oxygen General: Alert, Oriented, Cooperative, No Acute Distress HEENT: Pupils Equal, Pupils Reactive, Mucous Membr. Moist/[place] Neck: Supple, Trachea Midline. No: Lymphadenopathy Lungs: Clear to Auscultation, Normal Respiratory Effort Cardiovascular: Regular Rate, Regular Rhythm, No Murmurs GI/Abdominal Exam: Normal Bowel Sounds, Soft, Non-Tender, No Distention (Male) Exam: Deferred Back Exam: Normal Inspection, Full Range of Motion Extremities: Normal Inspection, Normal Range of Motion, Non-Tender, No Pedal Edema, Normal Capillary Refill Peripheral Pulses: 2+: Radial (L), Radial (R), Dorsalis Pedis (L), Dorsalis Pedis (R) Skin: Warm, Dry, Intact Neurological: No New Focal Deficit Psy/Mental Status: Alert, Normal Affect, Normal Mood Sepsis Event Note - Evaluation Sepsis Screening Result: No Definite Risk - Focused Exam Vital Signs: Vital Signs Temp Pulse Pulse Resp BP Pulse Ox 03/10/20 09:19 97.1 F 105 H 18 136/69 96 03/10/20 04:00 97.4 F 87 17 121/59 L 92 L 03/10/20 03:00 85 91 L - Problem List & Annotations (1) COVID-19 determined by clinical diagnostic criteria SNOMED Code(s): 354720873, 900747730 Code(s): U07.1 - COVID-19 Status: Acute Priority: High Current Visit: Yes (2) Diabetic ketoacidosis SNOMED Code(s): 634431320, 690726947 Code(s): E11.10 - TYPE 2 DIABETES MELLITUS WITH KETOACIDOSIS WITHOUT COMA Status: Acute Priority: High Current Visit: Yes Qualifiers: Diabetes mellitus type: type 2 Diabetes mellitus complication detail: witho ut coma Qualified Code(s): E11.10 - Type 2 diabetes mellitus with ketoacidosis without coma - Problem List Review Problem List Initiated/Reviewed/Updated: Yes - My Orders Last 24 Hours: My Active Orders 03/10/20 08:15 Potassium Chloride [Klor-Con M20] 40 meq PO Q4H 03/10/20 13:15 Doxycycline [Vibramycin] 100 mg PO BID - Assessment Assessment:: 03/09/20 Acute: DKA, resolved Covid-19 Infection, S/p Bamlanivimab infusion Vial pneumonitis/Atypical pneumonia -Sputum positive for gram-positive cocci and yeast, patient is using nystatin swish and swallow Leukocytosis resolved WBC 7.2 Hypokalemia, 2/2 extracellular losspotassium 2.6 Hypophosphatemia 1.7 Hypomagnesemia 1.4 Hypochloremia, resolved Increased AG Metabolic Acidosis, improving Elevated Ferritin Level Elevated LDH Elevated CRP Hypoalbuminemia Class I Obese Medical Non-compliance Resolved: Pseudohyponatremia, resolved Acute Kidney Injury, resolved Chronic: Asthma ASHD DM1 Eczema DM1 Obesity 03/10/20 Acute: DKA, resolved Covid-19 Infection, S/p Bamlanivimab infusion Vial pneumonitis/Atypical pneumonia -Sputum positive for MRSA and yeast, patient is using nystatin swish and swallow Hypokalemia, 2/2 extracellular losspotassium 3.1 Hypomagnesemia 1.7 Resolved: Pseudohyponatremia, resolved Acute Kidney Injury, resolved Hypophosphatemia resolved Hypochloremia, resolved Chronic: Asthma ASHD DM1 Eczema Obesity - Plan Plan:: 03/10/20 Plan: No respiratory issues PE prophylaxis with Lovenox Monitor inflammatory markers Continue Rocephin. Start doxycycline 100 mg p.o. twice daily Nystatin swish and spit 3 times daily Diabetic education post DKA Encourage IS/FV use and bedside pulmonary exercise Recheck labs in the morning and correct potassium and magnesium today On basal bolus insulin with sliding scale coverage and diabetic diet. Plan for discharge to home tomorrow.
[2020-03-10] MEDS: Insulin Glarg,Human.Rec.Analog 100 Unit/ML SUBCUT SCH (21:48)
[2020-03-11] MEDS: Magnesium Oxide 400 MG Tab PO SCH ×2 (06:11→17:06)
[2020-03-11] MEDS ORDERED: Magnesium Sulfate/Water 2 GM/50 ML BAG IV ONE (08:23)
[2020-03-11] MEDS: Insulin Lispro 100 Units/ML 3 ML Vial SUBCUT SCH ×7 (08:41→22:10)
[2020-03-11] MEDS: Enoxaparin 40 MG/0.4 ML Syringe SUBCUT SCH (08:42)
[2020-03-11] MEDS: Nystatin Susp 100,000 Unit/ML 5 ML Oral Syringe PO SCH ×3 (08:42→21:38)
[2020-03-11] MEDS: Doxycycline 100 MG Cap PO SCH ×2 (08:42→21:38)
[2020-03-11] MEDS: Potassium Chloride 20 MEQ Tab.ER PO SCH ×3 (08:43→16:53)
--- NOTE | 2020-03-11 13:35 | PCM.PN ---
- General Info Date of Service: 03/11/20 Admission Dx/Problem (Free Text): Generalized Weakness Subjective Update: Patient reports feeling well. Up independently in his room. Denies any signs or symptoms of Covid Functional Status: Reports: Pain Controlled, Tolerating Diet, Ambulating, Urinating, Incentive Spirometry - Review of Systems General: Reports: No Symptoms HEENT: Reports: No Symptoms Pulmonary: Reports: Cough. Denies: Sputum, Wheezing Cardiovascular: Reports: No Symptoms Gastrointestinal: Reports: No Symptoms Genitourinary: Reports: No Symptoms Musculoskeletal: Reports: No Symptoms Skin: Reports: No Symptoms Neurological: Reports: No Symptoms Psychiatric: Reports: No Symptoms - Patient Data Vitals - Most Recent: Last Vital Signs Temp 98.1 F 03/11/20 07:52 Pulse 86 03/11/20 07:52 Resp 20 03/11/20 07:52 BP 114/80 03/11/20 07:52 Pulse Ox 94 L 03/11/20 07:52 Weight - Most Recent: 257 lb 11.2 oz I&O - Last 24 Hours: Intake & Output 03/10/20 03/11/20 03/11/20 22:59 06:59 14:59 Intake Total 1460 800 240 Balance 1460 800 240 Lab Results Last 24 Hours: Laboratory Results - last 24 hr 03/10/20 03/10/20 03/11/20 Range/Units 18:14 21:22 05:44 Sodium 141 (136-145) mEq/L Potassium 3.1 L (3.5-5.1) mEq/L Chloride 105 (98-107) mEq/L Carbon Dioxide 29 (21-32) mEq/L Anion Gap 10.1 (5-15) BUN 4 L (7-18) mg/dL Creatinine 0.6 L (0.7-1.3) mg/dL Est Cr Clr Drug Dosing 247.50 mL/min Estimated GFR (MDRD) > 60 (>60) mL/min BUN/Creatinine Ratio 6.7 L (14-18) Glucose 97 (74-106) mg/dL POC Glucose 182 H 207 H (70-105) mg/dL Calcium 9.1 (8.5-10.1) mg/dL Phosphorus 3.5 (2.6-4.7) mg/dL Magnesium 1.7 L (1.8-2.4) mg/dl 03/11/20 03/11/20 Range/Units 06:12 11:29 Sodium (136-145) mEq/L Potassium (3.5-5.1) mEq/L Chloride (98-107) mEq/L Carbon Dioxide (21-32) mEq/L Anion Gap (5-15) BUN (7-18) mg/dL Creatinine (0.7-1.3) mg/dL Est Cr Clr Drug Dosing mL/min Estimated GFR (MDRD) (>60) mL/min BUN/Creatinine Ratio (14-18) Glucose (74-106) mg/dL POC Glucose 92 157 H (70-105) mg/dL Calcium (8.5-10.1) mg/dL Phosphorus (2.6-4.7) mg/dL Magnesium (1.8-2.4) mg/dl Sven Results Last 24 Hours: Microbiology 03/06/20 13:45 Aerobic Blood Culture - Preliminary Blood - Venous - Lab Draw NO GROWTH AFTER 4 DAYS Anaerobic Blood Culture - Preliminary NO GROWTH AFTER 4 DAYS 03/06/20 13:50 Aerobic Blood Culture - Preliminary Blood - Venous NO GROWTH AFTER 4 DAYS Anaerobic Blood Culture - Preliminary NO GROWTH AFTER 4 DAYS 03/07/20 13:00 Gram Stain - Final Sputum - Expectorated Sputum Culture - Final (Mrsa) Staphylococcus Aureus [place] Albicans Med Orders - Current: Current Medications Hydrocodone Bitart/Acetaminophen ([place] 325-5 Mg) 1 tab PO Q4H PRN PRN Reason: Pain (moderate 4-6) Albuterol/Ipratropium (Duoneb 3.0-0.5 Mg/3 Ml) 3 ml NEB Q4H PRN PRN Reason: Shortness Of Breath/wheezing Dextrose/Water (Dextrose 50% In Water) 50 ml IVPUSH ASDIRECTED PRN PRN Reason: Hypoglycemia Last Admin: 03/07/20 13:16 Dose: 50 ml Documented by: Doxycycline Hyclate (Vibramycin) 100 mg PO BID [facility] Last Admin: 03/11/20 08:42 Dose: 100 mg Documented by: Enoxaparin Sodium (Lovenox) 40 mg SUBCUT DAILY [facility] Last Admin: 03/11/20 08:42 Dose: 40 mg Documented by: Guaifenesin/Phenylephrine HCl (Robitussin Dm) 10 ml PO Q4H PRN PRN Reason: Cough Hydromorphone HCl (Dilaudid) 0.5 mg IVPUSH Q2H PRN PRN Reason: Pain (severe 7-10) Promethazine HCl 6.25 mg/ (Sodium Chloride) 50.25 mls @ 100 mls/hr IV Q6H PRN PRN Reason: Nausea/Vomiting Insulin Glargine (Lantus) 60 unit SUBCUT BEDTIME [facility] Last Admin: 03/10/20 21:48 Dose: 60 units Documented by: Insulin Human Lispro (Humalog) 0 unit SUBCUT QIDACANDBED [facility]; Protocol Last Admin: 03/11/20 12:23 Dose: 2 units Documented by: Insulin Human Lispro (Humalog) 5 unit SUBCUT TIDAC [facility] Last Admin: 03/11/20 12:22 Dose: 5 units Documented by: Magnesium Oxide (Magnesium Oxide) 400 mg PO 0600,1700 [facility] Last Admin: 03/11/20 06:11 Dose: 400 mg Documented by: Nystatin (Nystatin Oral Syringe) 500,000 unit PO TID [facility] Last Admin: 03/11/20 08:42 Dose: 500,000 unit Documented by: Ondansetron HCl (Zofran) 4 mg IV Q6H PRN PRN Reason: Nausea/Vomiting Potassium Chloride (Klor-Con M20) 40 meq PO Q4H [facility] Stop: 03/11/20 16:31 Last Admin: 03/11/20 12:20 Dose: 40 meq Documented by: Discontinued Medications Azithromycin (Zithromax) 500 mg PO DAILY [facility] Last Admin: 03/09/20 09:27 Dose: 500 mg Documented by: Dexamethasone (Decadron) 6 mg IVPUSH ONETIME ONE Stop: 03/06/20 18:01 Last Admin: 03/06/20 18:15 Dose: 6 mg Documented by: Dexamethasone (Dexamethasone) 6 mg PO DAILY [facility] Last Admin: 03/07/20 09:31 Dose: 6 mg Documented by: Heparin Sodium (Porcine) (Heparin Sodium) 5,000 units SUBCUT Q8H [facility] Last Admin: 03/08/20 03:03 Dose: 5,000 units Documented by: Hydromorphone HCl (Dilaudid) 1 mg IVPUSH ONETIME ONE Stop: 03/06/20 13:30 Last Admin: 03/06/20 13:55 Dose: 1 mg Documented by: Lactated Ringer's (Ringers, Lactated) 1,000 mls @ 999 mls/hr IV ASDIRECTED [facility] Last Admin: 03/06/20 15:48 Dose: 999 mls/hr Documented by: Potassium Chloride 10 meq/ (Premix) 100 mls @ 100 mls/hr IV Q1H [facility] Stop: 03/06/20 19:14 Last Admin: 03/06/20 16:55 Dose: Not Given Documented by: Lactated Ringer's (Ringers, Lactated) 1,000 mls @ 999 mls/hr IV ASDIRECTED [facility] Last Admin: 03/06/20 16:57 Dose: 999 mls/hr Documented by: Insulin Human Regular 100 unit (/ Sodium Chloride) 100 mls @ 3 mls/hr IV TITRATE [facility]; Protocol Last Titration: 03/07/20 06:37 Dose: 10 units/hr, 10 mls/hr Documented by: Bamlanivimab 700 mg/ Sodium (Chloride) 200 mls @ 200 mls/hr IV ONETIME ONE; Protocol Stop: 03/06/20 16:00 Last Admin: 03/06/20 16:51 Dose: 200 mls/hr Documented by: Potassium Chloride 10 meq/ (Premix) 100 mls @ 100 mls/hr IV Q1H [facility] Stop: 03/06/20 21:59 Last Admin: 03/07/20 01:30 Dose: 50 mls/hr Documented by: Insulin Human Regular 100 unit (/ Sodium Chloride) 100 mls @ 707.604 mls/hr IV TITRATE [facility]; Protocol Last Titration: 03/07/20 21:16 Dose: 0 units/kg/hr, 0 mls/hr Documented by: Ceftriaxone Sodium 1 gm/ (Sodium Chloride) 100 mls @ 200 mls/hr IV Q24H [facility] Stop: 03/11/20 18:31 Last Admin: 03/06/20 18:48 Dose: 200 mls/hr Documented by: Azithromycin 500 mg/ Sodium (Chloride) 250 mls @ 250 mls/hr IV Q24H [facility] Last Admin: 03/07/20 20:29 Dose: 250 mls/hr Documented by: Sodium Bicarbonate 75 meq/ (Sodium Chloride) 1,075 mls @ 125 mls/hr IV ASDIRECTED [facility] Last Admin: 03/06/20 21:45 Dose: 125 mls/hr Documented by: Dextrose/Water (Dextrose 5% In Water) 1,000 mls @ 150 mls/hr IV ASDIRECTED [facility] Last Infusion: 03/07/20 21:08 Dose: 0 mls/hr Documented by: Sodium Bicarbonate 75 meq/ (Sodium Chloride) 1,075 mls @ 125 mls/hr IV Q8H [facility] Last Admin: 03/08/20 00:38 Dose: Not Given Documented by: Ceftriaxone Sodium 1 gm/ (Sodium Chloride) 100 mls @ 200 mls/hr IV Q24H [facility] Stop: 03/10/20 18:59 Last Admin: 03/09/20 18:00 Dose: 200 mls/hr Documented by: Sodium Chloride 77 meq/ Sodium Bicarbonate 75 meq/ Sterile Water 1,094.25 mls @ 125 mls/hr IV Q8H [facility] Last Admin: 03/08/20 00:38 Dose: Not Given Documented by: Magnesium Sulfate (Magnesium Sulfate In Water Premix) 2 gm in 50 mls @ 25 mls/hr IV ONETIME ONE Stop: 03/08/20 08:06 Last Admin: 03/08/20 06:18 Dose: 25 mls/hr Documented by: Potassium Phosphate 30 mmole/ (Sodium Chloride) 510 mls @ 102 mls/hr IV ONETIME ONE Stop: 03/09/20 14:59 Last Infusion: 03/09/20 09:32 Dose: 50 mls/hr Documented by: Magnesium Sulfate 4 gm/ Premix 50 mls @ 12.5 mls/hr IV ONETIME ONE Stop: 03/09/20 11:29 Last Admin: 03/09/20 07:38 Dose: 12.5 mls/hr Documented by: Magnesium Sulfate (Magnesium Sulfate In Water Premix) 2 gm in 50 mls @ 25 mls/hr IV ONETIME ONE Stop: 03/10/20 10:04 Last Admin: 03/10/20 09:08 Dose: 25 mls/hr Documented by: Magnesium Sulfate (Magnesium Sulfate In Water Premix) 2 gm in 50 mls @ 25 mls/hr IV ONETIME ONE Stop: 03/11/20 10:22 Last Admin: 03/11/20 08:42 Dose: 25 mls/hr Documented by: Influenza Virus Vaccine (Fluzone Quad Syringe) 60 mcg IM .ONCE ONE Stop: 03/11/20 09:16 Insulin Glargine (Lantus) 25 unit SUBCUT ONETIME ONE Stop: 03/06/20 18:46 Last Admin: 03/06/20 22:05 Dose: Not Given Documented by: Insulin Glargine (Lantus) 25 unit SUBCUT ONETIME ONE Stop: 03/06/20 21:20 Last Admin: 03/06/20 21:38 Dose: 25 units Documented by: Insulin [facility] Last Admin: 03/07/20 21:14 Dose: 24 units Documented by: Insulin Human Lispro (Humalog) 24 unit [facility]UT [facility] Last Admin: 03/08/20 12:51 Dose: Not Given Documented by: Insulin Human Lispro (Humalog) 5 unit SUBCUT ONETIME ONE Stop: 03/08/20 13:33 Last Admin: 03/08/20 13:36 Dose: 5 units Documented by: Insulin Human Lispro (Humalog) 8 unit SUBCUT [facility] Insulin [facility] Last Admin: 03/11/20 08:41 Dose: Not Given Documented by: Insulin Human Regular (Humulin R) 3 unit IV ONETIME ONE Stop: 03/06/20 13:25 Last Admin: 03/06/20 14:01 Dose: 3 unit Documented by: Magnesium Oxide (Magnesium Oxide) 400 mg PO BID [facility] Last Admin: 03/10/20 09:11 Dose: 400 mg Documented by: Metoclopramide HCl (Reglan) 10 mg IVPUSH ONETIME ONE Stop: 03/06/20 13:30 Last Admin: 03/06/20 13:56 Dose: 10 mg Documented by: Potassium Chloride (Klor-Con M20) 60 meq PO ONETIME ONE Stop: 03/07/20 06:39 Last Admin: 03/07/20 06:50 Dose: 60 meq Documented by: Potassium Chloride (Klor-Con M20) 60 meq PO ONETIME ONE Stop: 03/07/20 16:02 Last Admin: 03/07/20 17:06 Dose: 60 meq Documented by: Potassium Chloride (Klor-Con M20) 60 meq PO ONETIME ONE Stop: 03/07/20 19:14 Last Admin: 03/07/20 19:28 Dose: 60 meq Documented by: Potassium Chloride (Klor-Con M20) 60 meq PO ONETIME ONE Stop: 03/08/20 06:06 Last Admin: 03/08/20 06:20 Dose: 60 meq Documented by: Potassium Chloride (Klor-Con M20) 40 meq PO BID [facility] Stop: 03/09/20 09:01 Last Admin: 03/09/20 09:19 Dose: 40 meq Documented by: Potassium Chloride (Klor-Con M20) 40 meq PO Q6H [facility] Stop: 03/09/20 20:01 Last Admin: 03/09/20 20:42 Dose: 40 meq Documented by: Potassium Chloride (Klor-Con M20) 40 meq PO ONETIME ONE Stop: 03/09/20 14:01 Last Admin: 03/09/20 14:26 Dose: 40 meq Documented by: Potassium Chloride (Klor-Con M20) 40 meq PO Q4H [facility] Stop: 03/10/20 16:16 Last Admin: 03/10/20 15:30 Dose: 40 meq Documented by: Sodium Phosphate (Neutra-Phos) 250 mg PO QID [facility] Stop: 03/08/20 17:01 Last Admin: 03/08/20 17:19 Dose: 250 mg Documented by: Sodium Phosphate (Neutra-Phos) 500 mg PO ONETIME ONE Stop: 03/09/20 14:01 Last Admin: 03/09/20 14:26 Dose: 500 mg Documented by: - Exam Quality Assessment: DVT Prophylaxis (Lovenox). No: Supplemental Oxygen General: Alert, Oriented, Cooperative, No Acute Distress HEENT: Pupils Equal, Pupils Reactive, Mucous Membr. Moist/[place] Neck: Supple, Trachea Midline. No: Lymphadenopathy Lungs: Normal Respiratory Effort, Decreased Breath Sounds Cardiovascular: Regular Rate, Regular Rhythm, No Murmurs GI/Abdominal Exam: Normal Bowel Sounds, Soft, Non-Tender, No Distention (Male) Exam: Deferred Back Exam: Normal Inspection, Full Range of Motion Extremities: Normal Inspection, Normal Range of Motion, Non-Tender, No Pedal Edema, Normal Capillary Refill Peripheral Pulses: 2+: Radial (L), Radial (R), Dorsalis Pedis (L), Dorsalis Pedis (R) Skin: Warm, Dry, Intact Neurological: No New Focal Deficit Psy/Mental Status: Alert, Normal Affect, Normal Mood Sepsis Event Note - Evaluation Sepsis Screening Result: No Definite Risk - Focused Exam Vital Signs: Vital Signs Temp Pulse Resp BP Pulse Ox 03/11/20 07:52 98.1 F 86 20 114/80 94 L 03/11/20 06:10 98.1 F 90 18 123/69 94 L - Problem List & Annotations (1) COVID-19 determined by clinical diagnostic criteria SNOMED Code(s): 925151521, 306013895 Code(s): U07.1 - COVID-19 Status: Acute Priority: High Current Visit: Yes (2) Diabetic ketoacidosis SNOMED Code(s): 958822055, 198849651 Code(s): E11.10 - TYPE 2 DIABETES MELLITUS WITH KETOACIDOSIS WITHOUT COMA Status: Acute Priority: High Current Visit: Yes Qualifiers: Diabetes mellitus type: type 2 Diabetes mellitus complication detail: without coma Qualified Code(s): E11.10 - Type 2 diabetes mellitus with ketoacidosis without coma - Problem List Review Problem List Initiated/Reviewed/Updated: Yes - My Orders Last 24 Hours: My Active Orders 03/10/20 13:15 Doxycycline [Vibramycin] 100 mg PO BID 03/11/20 08:30 Potassium Chloride [Klor-Con M20] 40 meq PO Q4H 03/11/20 11:00 Insulin Lispro [HumaLOG] 5 unit SUBCUT [facility] - Assessment Assessment:: 03/09/20 Acute: DKA, resolved Covid-19 Infection, S/p Bamlanivimab infusion Vial pneumonitis/Atypical pneumonia -Sputum positive for gram-positive cocci and yeast, patient is using nystatin swish and swallow Leukocytosis resolved WBC 7.2 Hypokalemia, 2/2 extracellular losspotassium 2.6 Hypophosphatemia 1.7 Hypomagnesemia 1.4 Hypochloremia, resolved Increased AG Metabolic Acidosis, improving Elevated Ferritin Level Elevated LDH Elevated CRP Hypoalbuminemia Class I Obese Medical Non-compliance Resolved: Pseudohyponatremia, resolved Acute Kidney Injury, resolved Chronic: Asthma ASHD DM1 Eczema DM1 Obesity 03/10/20 Acute: DKA, resolved Covid-19 Infection, S/p Bamlanivimab infusion Vial pneumonitis/Atypical pneumonia -Sputum positive for MRSA and yeast, patient is using nystatin swish and swallow Hypokalemia, 2/2 extracellular losspotassium 3.1 Hypomagnesemia 1.7 Resolved: Pseudohyponatremia, resolved Acute Kidney Injury, resolved Hypophosphatemia resolved Hypochloremia, resolved Chronic: Asthma ASHD DM1 Eczema Obesity 03/11/20 Acute: DKA, resolved Covid-19 Infection, S/p Bamlanivimab infusion Vial pneumonitis/Atypical pneumonia -Sputum positive for MRSA and yeast, patient is using nystatin swish and swallow and doxycycline Hypokalemia, 2/2 extracellular losspotassium 3.1 despite oral replacement yesterday Hypomagnesemia 1.7 despite IV replacement yesterday Resolved: Pseudohyponatremia, resolved Acute Kidney Injury, resolved Hypophosphatemia resolved Hypochloremia, resolved Chronic: Asthma ASHD DM1 Eczema Obesity - Plan Plan:: Plan:: 03/10/20 Plan: No respiratory issues PE prophylaxis with Lovenox Monitor inflammatory markers Continue Rocephin. Start doxycycline 100 mg p.o. twice daily Nystatin swish and spit 3 times daily Diabetic education post DKA Encourage IS/FV use and bedside pulmonary exercise Recheck labs in the morning and correct potassium and magnesium today On basal bolus insulin with sliding scale coverage and diabetic diet. Plan for discharge to home tomorrow. 03/11/20 No respiratory issues PE prophylaxis with Lovenox Continue doxycycline 100 mg p.o. twice daily Nystatin swish and spit 3 times daily Diabetic education post DKA Encourage IS/FV use and bedside pulmonary exercise Recheck labs in the morning and correct potassium and magnesium today Decrease basal bolus insulin from 8 to 5 with sliding scale coverage and diabetic diet. Plan for discharge to home tomorrow pending potassium and magnesium corrected
[2020-03-11] MEDS: Insulin Glarg,Human.Rec.Analog 100 Unit/ML SUBCUT SCH (21:38)
[2020-03-12] MEDS: Magnesium Oxide 400 MG Tab PO SCH (06:15)
[2020-03-12] MEDS: Nystatin Susp 100,000 Unit/ML 5 ML Oral Syringe PO SCH (08:49)
[2020-03-12] MEDS: Doxycycline 100 MG Cap PO SCH (08:49)
[2020-03-12] MEDS: Enoxaparin 40 MG/0.4 ML Syringe SUBCUT SCH (08:49)
[2020-03-12] MEDS: Insulin Lispro 100 Units/ML 3 ML Vial SUBCUT SCH ×4 (08:51→11:43)
--- NOTE | 2020-03-12 13:45 | PCM.DCSUM1 ---
Discharge Summary - Hospital Course HPI Initial Comments: This is a 20 year with hx/o Asthma, ADHD, DM1, Eczema, and Obesity who comes to ED with complaints of generalized weakness associated with nausea and abdominal pain. He is on insulin but has been out of supplies a month ago. He has been feeling ill for the past 3-4 days with dry cough, headache, and chest discomfort. He is aware his glucose has been considerably elevated. No Diarrhea or loss of sense of taste or smell. His initial work up shows a CBC remarkable for WBC of 9.89, MCV of 78.7, and Neutrophils of 78.7%. His Coags studies are within normal limits. His ABG shows mized acidosis with a pH of 7.20, pCO2 of 19.4, pO2 of 91, HCO3 of 7.3 and O2 sat of 95.5% on RA. His sodium is significant for Na of 132, K of 3.3, Cl of 94, CO2 of 9, AG of 32.32, Cr of 1.6,BS of 466, A1C of 11.40, Serum Osm of 331, iron of 27, Ferritin of 841, LDH of 342, CRP of 32.4, and Albumin of 3.1. His RACHEL is negative. Ketones of 8.93. His rapid test is positive for Covid. Patient is coming in for further treatment of DKA. Assessment/Plan Comment:: Assessment: Acute: DKA Covid-19 Infection Vial pneumonitis/Atypical pneumonia Leukocytosis with WBC of 9.89 Mixed Acidosis Pseudohyponatremia Hypokalemia Hypochloremia Increased Ag Metabolic Acidosis Acute Kidney Injury Elevated Ferritin Level Elevated LDH Elevated CRP Hypoalbuminemia Class I Obese Medical Non-compliance Chronic: Asthma ASHD DM1 Eczema DM1 Obesity Plan: Patient received [employer] mAb, bamlanivimab, in ED. Patient is on RA satting well. CXR shows b/l patchy infiltrates. Heparin 5000 units subQ Q8H. [place] 5 day course, if he requires supplemental O2. Monitor sepsis and inflammatory markers. DKA protocol-my own regimen. IV rocephin and azithromycin to cover for atypical pneumonia. Diabetic education post DKA. Serial BMP. Goal to resolve AG. Diagnosis: Stroke: No - Discharge Data Discharge Date: 03/12/20 Discharge Disposition: Home, Self-Care 01 Condition: Good - Referral to Home Health Primary Care Physician: PCP None - Discharge Diagnosis/Problem(s) (1) COVID-19 determined by clinical diagnostic criteria SNOMED Code(s): 052162481, 455732088 ICD Code: U07.1 - COVID-19 Status: Acute Priority: High Current Visit: Yes (2) Diabetic ketoacidosis SNOMED Code(s): 873979597, 223962279 ICD Code: E11.10 - TYPE 2 DIABETES MELLITUS WITH KETOACIDOSIS WITHOUT COMA Status: Acute Priority: High Current Visit: Yes Qualifiers: Diabetes mellitus type: type 2 Diabetes mellitus complication detail: without coma Qualified Code(s): E11.10 - Type 2 diabetes mellitus with ketoacidosis without coma - Patient Summary/Data Consults: Consultations 03/06/20 17:55 Consult to Diabetic Nurse Specialist [CONS] Routine Consult to Certified Ophthalmic Surgical Assistant [CONS] Routine Respiratory Care Assess and Treatment [CONS] Routine Hospital Course: Patient was admitted for DKA, multiple electrolyte abnormalities, and COVID-19 infection without hypoxemia. He was given a monoclonal antibody in the emergency department for being admitted. We had a difficult time correcting his hypokalemia and hypophosphatemia because of his severe DKA and poor absorption. Patient never needed any more treatment of his COVID-19 but did receive Rocephin and azithromycin for possible atypical pneumonia. Patient had sputum culture which grew out yeast and MRSA. He was started on nystatin and doxycycline. Patient will need follow-up in approximately 7 days. He did have diabetic education while admitted and prescription for insulin, syringes, needles were given at discharge. - Patient Instructions Diet: Diabetic Diet Notify Provider of: Nausea and/or Vomiting Other/Special Instructions: Follow up with PCP next week. - Discharge Plan *PRESCRIPTION DRUG MONITORING PROGRAM REVIEWED*: No *COPY OF PRESCRIPTION DRUG MONITORING REPORT IN PATIENT SHANTI: No Prescriptions/Med Rec: Insulin Lispro [HumaLOG] 5 unit SUBCUT TIDAC #1 vial Insulin Glarg,Human.Rec.Analog [Lantus] 60 unit SUBCUT BEDTIME #1 pen Magnesium Oxide 400 mg PO 0600,1700 #60 tablet metFORMIN HCl [Metformin HCl] 500 mg PO BID #60 tablet Nystatin [Nystatin Oral Syringe] 500,000 unit PO TID #10 syringe Doxycycline [Vibramycin] 100 mg PO BID #10 cap Home Medications: Home Meds Doxycycline [Vibramycin] 100 mg PO BID #10 cap 03/12/20 [Rx] Insulin Glarg,Human.Rec.Analog [Lantus] 60 unit SUBCUT BEDTIME #1 pen 03/12/20 [Rx] Insulin Lispro [HumaLOG] 0 unit SUBCUT QIDACANDBED vial 03/12/20 [Rx] Insulin Lispro [HumaLOG] 5 unit SUBCUT TIDAC #1 vial 03/12/20 [Rx] Magnesium Oxide 400 mg PO 0600,1700 #60 tablet 03/12/20 [Rx] Nystatin [Nystatin Oral Syringe] 500,000 unit PO TID #10 syringe 03/12/20 [Rx] metFORMIN HCl [Metformin HCl] 500 mg PO BID #60 tablet 03/12/20 [Rx] Oxygen Therapy Mode: Room Air Patient Handouts: COVID-19 Frequently Asked Questions, COVID-19, Diabetic Ketoacidosis, Type 1 Diabetes Mellitus, Diagnosis, Adult, [id number], COVID- 19: How to Protect Yourself and Others - [facility], Coronavirus Information 07/01/19, Prevent the Spread of COVID-19 if You Are Sick - [facility] Forms: ED Department Discharge Referrals: Wood Perez MD [Physician] - (Please call and schedule a follow up with Dr. Hancock next week. ) - Discharge Summary/Plan Comment DC Time >30 min.: No - General Info Date of Service: 03/12/20 Admission Dx/Problem (Free Text: Generalized Weakness Subjective Update: Doing well. No current complaints. Functional Status: Reports: Pain Controlled - Review of Systems General: Reports: No Symptoms HEENT: Reports: No Symptoms Pulmonary: Reports: No Symptoms Cardiovascular: Reports: No Symptoms Gastrointestinal: Reports: No Symptoms Musculoskeletal: Reports: No Symptoms - Patient Data Vitals - Most Recent: Last Vital Signs Temp 98.1 F 03/12/20 11:01 Pulse 93 03/12/20 11:01 Resp 20 03/12/20 11:01 BP 117/67 03/12/20 11:01 Pulse Ox 94 L 03/12/20 11:01 Weight - Most Recent: 257 lb 9.6 oz I&O - Last 24 hours: Intake & Output 03/11/20 03/12/20 03/12/20 22:59 06:59 14:59 Intake Total 1090 700 120 Output Total 400 Balance 690 700 120 Lab Results - Last 24 hrs: Laboratory Results - last 24 hr 03/11/20 03/11/20 03/12/20 Range/Units 16:09 21:33 05:16 Sodium 142 (136-145) mEq/L Potassium 3.9 (3.5-5.1) mEq/L Chloride 104 (98-107) mEq/L Carbon Dioxide 30 (21-32) mEq/L Anion Gap 11.9 (5-15) BUN 6 L (7-18) mg/dL Creatinine 0.6 L (0.7-1.3) mg/dL Est Cr Clr Drug Dosing 247.50 mL/min Estimated GFR (MDRD) > 60 (>60) mL/min BUN/Creatinine Ratio 10.0 L (14-18) Glucose 145 H (74-106) mg/dL POC Glucose 236 H 155 H (70-105) mg/dL Calcium 9.3 (8.5-10.1) mg/dL Phosphorus 5.0 H (2.6-4.7) mg/dL Magnesium 1.7 L (1.8-2.4) mg/dl 03/12/20 03/12/20 Range/Units 06:14 10:59 Sodium (136-145) mEq/L Potassium (3.5-5.1) mEq/L Chloride (98-107) mEq/L Carbon Dioxide (21-32) mEq/L Anion Gap (5-15) BUN (7-18) mg/dL Creatinine (0.7-1.3) mg/dL Est Cr Clr Drug Dosing mL/min Estimated GFR (MDRD) (>60) mL/min BUN/Creatinine Ratio (14-18) Glucose (74-106) mg/dL POC Glucose 140 H 180 H (70-105) mg/dL Calcium (8.5-10.1) mg/dL Phosphorus (2.6-4.7) mg/dL Magnesium (1.8-2.4) mg/dl KENNEY Results - Last 24 hrs: Microbiology 03/06/20 13:45 Aerobic Blood Culture - Preliminary Blood - Venous - Lab Draw NO GROWTH AFTER 5 DAYS Anaerobic Blood Culture - Preliminary NO GROWTH AFTER 5 DAYS 03/06/20 13:50 Aerobic Blood Culture - Preliminary Blood - Venous NO GROWTH AFTER 5 DAYS Anaerobic Blood Culture - Preliminary NO GROWTH AFTER 5 DAYS Med Orders - Current: Current Medications Hydrocodone Bitart/Acetaminophen ([place] 325-5 Mg) 1 tab PO Q4H PRN PRN Reason: Pain (moderate 4-6) Albuterol/Ipratropium (Duoneb 3.0-0.5 Mg/3 Ml) 3 ml NEB Q4H PRN PRN Reason: Shortness Of Breath/wheezing Dextrose/Water (Dextrose 50% In Water) 50 ml IVPUSH ASDIRECTED PRN PRN Reason: Hypoglycemia Last Admin: 03/07/20 13:16 Dose: 50 ml Documented by: Doxycycline Hyclate (Vibramycin) 100 mg PO BID [facility] Last Admin: 03/12/20 08:49 Dose: 100 mg Documented by: Enoxaparin Sodium (Lovenox) 40 mg SUBCUT DAILY [facility] Last Admin: 03/12/20 08:49 Dose: 40 mg Documented by: Guaifenesin/Phenylephrine HCl (Robitussin Dm) 10 ml PO Q4H PRN PRN Reason: Cough Hydromorphone HCl (Dilaudid) 0.5 mg IVPUSH Q2H PRN PRN Reason: Pain (severe 7-10) Promethazine HCl 6.25 mg/ (Sodium Chloride) 50.25 mls @ 100 mls/hr IV Q6H PRN PRN Reason: Nausea/Vomiting Insulin Glargine (Lantus) 60 unit SUBCUT BEDTIME [facility] Last Admin: 03/11/20 21:38 Dose: 60 units Documented by: Insulin Human Lispro (Humalog) 0 unit SUBCUT QIDACANDBED [facility]; Protocol Last Admin: 03/12/20 11:42 Dose: 2 units Documented by: Insulin Human Lispro (Humalog) 5 unit SUBCUT TIDAC [facility] Last Admin: 03/12/20 11:43 Dose: 5 units Documented by: Magnesium Oxide (Magnesium Oxide) 400 mg PO 0600,1700 [facility] Last Admin: 03/12/20 06:15 Dose: 400 mg Documented by: Nystatin (Nystatin Oral Syringe) 500,000 unit PO TID [facility] Last Admin: 03/12/20 08:49 Dose: 500,000 unit Documented by: Ondansetron HCl (Zofran) 4 mg IV Q6H PRN PRN Reason: Nausea/Vomiting Discontinued Medications Azithromycin (Zithromax) 500 mg PO DAILY [facility] Last Admin: 03/09/20 09:27 Dose: 500 mg Documented by: Dexamethasone (Decadron) 6 mg IVPUSH ONETIME ONE Stop: 03/06/20 18:01 Last Admin: 03/06/20 18:15 Dose: 6 mg Documented by: Dexamethasone (Dexamethasone) 6 mg PO DAILY [facility] Last Admin: 03/07/20 09:31 Dose: 6 mg Documented by: Heparin Sodium (Porcine) (Heparin Sodium) 5,000 units SUBCUT Q8H [facility] Last Admin: 03/08/20 03:03 Dose: 5,000 units Documented by: Hydromorphone HCl (Dilaudid) 1 mg IVPUSH ONETIME ONE Stop: 03/06/20 13:30 Last Admin: 03/06/20 13:55 Dose: 1 mg Documented by: Lactated Ringer's (Ringers, Lactated) 1,000 mls @ 999 mls/hr IV ASDIRECTED [facility] Last Admin: 03/06/20 15:48 Dose: 999 mls/hr Documented by: Potassium Chloride 10 meq/ (Premix) 100 mls @ 100 mls/hr IV Q1H [facility] Stop: 03/06/20 19:14 Last Admin: 03/06/20 16:55 Dose: Not Given Documented by: Lactated Ringer's (Ringers, Lactated) 1,000 mls @ 999 mls/hr IV ASDIRECTED [facility] Last Admin: 03/06/20 16:57 Dose: 999 mls/hr Documented by: Insulin Human Regular 100 unit (/ Sodium Chloride) 100 mls @ 3 mls/hr IV TITRATE [facility]; Protocol Last Titration: 03/07/20 06:37 Dose: 10 units/hr, 10 mls/hr Documented by: Bamlanivimab 700 mg/ Sodium (Chloride) 200 mls @ 200 mls/hr IV ONETIME ONE; Protocol Stop: 03/06/20 16:00 Last Admin: 03/06/20 16:51 Dose: 200 mls/hr Documented by: Potassium Chloride 10 meq/ (Premix) 100 mls @ 100 mls/hr IV Q1H [facility] Stop: 03/06/20 21:59 Last Admin: 03/07/20 01:30 Dose: 50 mls/hr Documented by: Insulin Human Regular 100 unit (/ Sodium Chloride) 100 mls @ 707.604 mls/hr IV TITRATE [facility]; Protocol Last Titration: 03/07/20 21:16 Dose: 0 units/kg/hr, 0 mls/hr Documented by: Ceftriaxone Sodium 1 gm/ (Sodium Chloride) 100 mls @ 200 mls/hr IV Q24H [facility] Stop: 03/11/20 18:31 Last Admin: 03/06/20 18:48 Dose: 200 mls/hr Documented by: Azithromycin 500 mg/ Sodium (Chloride) 250 mls @ 250 mls/hr IV Q24H [facility] Last Admin: 03/07/20 20:29 Dose: 250 mls/hr Documented by: Sodium Bicarbonate 75 meq/ (Sodium Chloride) 1,075 mls @ 125 mls/hr IV ASDIRECTED [facility] Last Admin: 03/06/20 21:45 Dose: 125 mls/hr Documented by: Dextrose/Water (Dextrose 5% In Water) 1,000 mls @ 150 mls/hr IV ASDIRECTED [facility] Last Infusion: 03/07/20 21:08 Dose: 0 mls/hr Documented by: Sodium Bicarbonate 75 meq/ (Sodium Chloride) 1,075 mls @ 125 mls/hr IV Q8H [facility] Last Admin: 03/08/20 00:38 Dose: Not Given Documented by: Ceftriaxone Sodium 1 gm/ (Sodium Chloride) 100 mls @ 200 mls/hr IV Q24H [facility] Stop: 03/10/20 18:59 Last Admin: 03/09/20 18:00 Dose: 200 mls/hr Documented by: Sodium Chloride 77 meq/ Sodium Bicarbonate 75 meq/ Sterile Water 1,094.25 mls @ 125 mls/hr IV Q8H [facility] Last Admin: 03/08/20 00:38 Dose: Not Given Documented by: Magnesium Sulfate (Magnesium Sulfate In Water Premix) 2 gm in 50 mls @ 25 mls/hr IV ONETIME ONE Stop: 03/08/20 08:06 Last Admin: 03/08/20 06:18 Dose: 25 mls/hr Documented by: Potassium Phosphate 30 mmole/ (Sodium Chloride) 510 mls @ 102 mls/hr IV ONETIME ONE Stop: 03/09/20 14:59 Last Infusion: 03/09/20 09:32 Dose: 50 mls/hr Documented by: Magnesium Sulfate 4 gm/ Premix 50 mls @ 12.5 mls/hr IV ONETIME ONE Stop: 03/09/20 11:29 Last Admin: 03/09/20 07:38 Dose: 12.5 mls/hr Documented by: Magnesium Sulfate (Magnesium Sulfate In Water Premix) 2 gm in 50 mls @ 25 mls/hr IV ONETIME ONE Stop: 03/10/20 10:04 Last Admin: 03/10/20 09:08 Dose: 25 mls/hr Documented by: Magnesium Sulfate (Magnesium Sulfate In Water Premix) 2 gm in 50 mls @ 25 mls/hr IV ONETIME ONE Stop: 03/11/20 10:22 Last Admin: 03/11/20 08:42 Dose: 25 mls/hr Documented by: Influenza Virus Vaccine (Fluzone Quad Syringe) 60 mcg IM .ONCE ONE Stop: 03/11/20 09:16 Insulin Glargine (Lantus) 25 unit SUBCUT ONETIME ONE Stop: 03/06/20 18:46 Last Admin: 03/06/20 22:05 Dose: Not Given Documented by: Insulin Glargine (Lantus) 25 unit SUBCUT ONETIME ONE Stop: 03/06/20 21:20 Last Admin: 03/06/20 21:38 Dose: 25 units Documented by: [facility] Admin: 03/07/20 21:14 Dose: 24 units Documented by: [facility]ulin [facility] Last Admin: 03/08/20 12:51 Dose: Not Given Documented by: Insulin Human Lispro (Humalog) 5 unit SUBCUT ONETIME ONE Stop: 03/08/20 13:33 Last Admin: 03/08/20 13:36 Dose: 5 units Documented by: Insulin Human Lispro (Humalog) 8 unit SUBCUT [facility] Insulin [facility] Last Admin: 03/11/20 08:41 Dose: Not Given Documented by: Insulin Human Regular (Humulin R) 3 unit IV ONETIME ONE Stop: 03/06/20 13:25 Last Admin: 03/06/20 14:01 Dose: 3 unit Documented by: Magnesium Oxide (Magnesium Oxide) 400 mg PO BID [facility] Last Admin: 03/10/20 09:11 Dose: 400 mg Documented by: Metoclopramide HCl (Reglan) 10 mg IVPUSH ONETIME ONE Stop: 03/06/20 13:30 Last Admin: 03/06/20 13:56 Dose: 10 mg Documented by: Potassium Chloride (Klor-Con M20) 60 meq PO ONETIME ONE Stop: 03/07/20 06:39 Last Admin: 03/07/20 06:50 Dose: 60 meq Documented by: Potassium Chloride (Klor-Con M20) 60 meq PO ONETIME ONE Stop: 03/07/20 16:02 Last Admin: 03/07/20 17:06 Dose: 60 meq Documented by: Potassium Chloride (Klor-Con M20) 60 meq PO ONETIME ONE Stop: 03/07/20 19:14 Last Admin: 03/07/20 19:28 Dose: 60 meq Documented by: Potassium Chloride (Klor-Con M20) 60 meq PO ONETIME ONE Stop: 03/08/20 06:06 Last Admin: 03/08/20 06:20 Dose: 60 meq Documented by: Potassium Chloride (Klor-Con M20) 40 meq PO BID [facility] Stop: 03/09/20 09:01 Last Admin: 03/09/20 09:19 Dose: 40 meq Documented by: Potassium Chloride (Klor-Con M20) 40 meq PO Q6H [facility] Stop: 03/09/20 20:01 Last Admin: 03/09/20 20:42 Dose: 40 meq Documented by: Potassium Chloride (Klor-Con M20) 40 meq PO ONETIME ONE Stop: 03/09/20 14:01 Last Admin: 03/09/20 14:26 Dose: 40 meq Documented by: Potassium Chloride (Klor-Con M20) 40 meq PO Q4H [facility] Stop: 03/10/20 16:16 Last Admin: 03/10/20 15:30 Dose: 40 meq Documented by: Potassium Chloride (Klor-Con M20) 40 meq PO Q4H [facility] Stop: 03/11/20 16:31 Last Admin: 03/11/20 16:53 Dose: 40 meq Documented by: Sodium Phosphate (Neutra-Phos) 250 mg PO QID [facility] Stop: 03/08/20 17:01 Last Admin: 03/08/20 17:19 Dose: 250 mg Documented by: Sodium Phosphate (Neutra-Phos) 500 mg PO ONETIME ONE Stop: 03/09/20 14:01 Last Admin: 03/09/20 14:26 Dose: 500 mg Documented by: - Exam Quality Assessment: Denies: Supplemental Oxygen General: Reports: Alert, Oriented HEENT: Reports: Pupils Equal, Mucous Membr. Moist/[place]ane Neck: Reports: Supple Lungs: Reports: Clear to Auscultation, Normal Respiratory Effort Cardiovascular: Reports: Regular Rate, Regular Rhythm GI/Abdominal Exam: Normal Bowel Sounds, Soft, Non-Tender, No Organomegaly, No Distention, No Abnormal Bruit, No Mass Extremities: Normal Inspection, Normal Range of Motion, Non-Tender, No Pedal Edema, Normal Capillary Refill Psy/Mental Status: Reports: Alert, Normal Affect, Normal Mood
[2020-03-12] MEDS: FLU VACC QS2020-21(6MOS UP)/PF 60 MCG/0.5 ML SYRINGE IM ONE ×2 (14:16→14:21)
== END 2020-03-12 14:45 | disposition home or self-care (01) | DRG 637 ==
LOC: JD.ED 12:39 → JD.ICU 17:55 → JD.MS 03-10 15:11
PROVIDERS: ADMIT Internal Medicine; ATTEND Internal Medicine
DX: E10.10 Type 1 diabetes mellitus with ketoacidosis without coma (principal); E11.10 Type 2 diabetes mellitus with ketoacidosis without coma; U07.1 COVID-19; J12.89 Other viral pneumonia; J18.9 Pneumonia, unspecified organism; F90.1 Attention-deficit hyperactivity disorder, predominantly hyperactive type; L30.9 Dermatitis, unspecified; E87.1 Hypo-osmolality and hyponatremia; N17.9 Acute kidney failure, unspecified; E87.6 Hypokalemia; E87.8 Other disorders of electrolyte and fluid balance, not elsewhere classified; E88.09 Other disorders of plasma-protein metabolism, not elsewhere classified; E66.9 Obesity, unspecified; Z91.14 Patient's other noncompliance with medication regimen; J45.909 Unspecified asthma, uncomplicated; I25.10 Atherosclerotic heart disease of native coronary artery without angina pectoris; B95.62 Methicillin resistant Staphylococcus aureus infection as the cause of diseases classified elsewhere; F90.9 Attention-deficit hyperactivity disorder, unspecified type; E61.1 Iron deficiency; E83.39 Other disorders of phosphorus metabolism; Z79.4 Long term (current) use of insulin; Z79.899 Other long term (current) drug therapy; Z23 Encounter for immunization
CPT/HCPCS: 36415; 36600; 71045; 80048; 80053; 80306; 80307; 82009; 82728; 82803; 82947 ×3; 82962; 83036; 83540; 83615; 83690; 83735; 83880; 83930; 84100; 84466; 84484; 85025; 85610; 85730; 86140; 87040 ×2; 87635; 93005; 96365; 96367; 96375; 99285; J1170; J1815; J2765; J3480; J7050; J7120 ×3; 87070; 87077; 87186; 87205; 90686; 93010; 94667; A9270-GY; G0008; J0456; J0696; J1100; J1644; J1650; J3475; J3490; J7030; J7040; J7060; J8540; U0002